=== PATIENT | male | born 1985 | race Caucasian/White ===

== ENCOUNTER → 2017-05-26 09:46 | Outpatient (CLI) | payer MEDICARE, MEDICAID, SELFPAY ==
[2017-05-26 12:21] LABS: Absolute Lymphocyte Count 2.09 X10^3/ul (0.83-4.51); Absolute Neutrophil Count 3.6 X10^3/uL (2.0-7.7); Basophil# 0.02 X10^3/uL; Basophil% 0.3 % (0-1); Eosinophils% 3.1 % (0-5); Hematocrit 43.6 % (40-54); Hemoglobin 14.9 g/dl (13.0-16.5); Lymphocyte # 2.09 X10^3/ul (4.0); Lymphocyte % 32.1 % (19-41); Mean Corp Hgb Conc 34.2 g/gl (32-36); Mean Corpuscular Hgb 29.5 pg (27.0-32.0); Mean Corpuscular Volume 86.3 fL (80-94); Monocyte% 9.2 % (0-10); Neutrophil # 3.58 X10^3/uL (2.7-7.7); Neutrophil % 54.8 % (47-70); Platelet Count 208 K/mm3 (150-450); RBC Distribution Width CV 13.2 % (11.6-14.6); RBC Distribution Width SD 40.6 fl (35.1-43.9); Red Blood Count 5.05 M/mm3 (4.6-6.2); White Blood Count 6.5 K/mm3 (4.4-11.0)
[2017-05-26 12:31] LABS: POSITIVE COUNT NO; POSITIVE DIFFERENTIAL NO; POSITIVE MORPHOLOGY NO
[2017-05-26 12:33] LABS: Hemoglobin A1c 6.4 % (4.2-6.3)
[2017-05-26 12:50] LABS: ALB/GLOB Ratio 0.8 RATIO (0.9-2.4); AST(SGOT) 34 U/L (15-37); Alanine Aminotransfer ALT/SGPT 65 U/L (16-61); Albumin, Serum 3.7 g/dL (3.2-5.0); Alkaline Phosphatase 73 U/L (45-117); Anion Gap 7 (5-15); BUN 15 mg/dL (7-18); BUN/Creat Ratio 14.9 RATIO (10-20); Calcium,Total 8.7 mg/dL (8.5-10.1); Chloride 103 mmol/L (98-107); Cholesterol 215 mg/dL (200); Creatinine, Serum 1.01 mg/dL (0.70-1.30); EST Glomerular Filtration Rate 91 mL/min (>60); Est Glom Filt Rate - Afr Amer 110 mL/min (>60); Globulin 4.5 g/dL (2.2-4.2); Glucose 124 mg/dL (74-106); High Density Lipoprotein 36 mg/dL; Potassium 4.2 mmol/L (3.5-5.1); Protein, Total 8.2 g/dL (6.4-8.2); Sodium Level 138 mmol/L (136-145); Triglycerides 284 mg/dL; Very Low Density Lipoprotein 57 mg/dL (5-40)
== END ==
PROVIDERS: Family Provider Family Medicine; PCP Family Medicine; Visit Provider Family Medicine
DX: E11.9 Type 2 diabetes mellitus without complications (principal)
CPT/HCPCS: 36415; 80053; 80061; 83036; 84443; 85025

== ENCOUNTER 2017-06-17 20:04 | Emergency (ER) | payer MEDICARE, MEDICAID, SELFPAY ==
[2017-06-17 20:05] VITALS: BP 147/123; PULSE 108; RESP 20; TEMP 36.7; O2SAT 93; BMI 44.1
--- NOTE | 2017-06-17 20:45 | RAD_ITS ---
STUDY: X-RAY CHEST REASON FOR EXAM: Male, 31 years old. Hyperglycemia TECHNIQUE: Frontal and lateral views of the chest were obtained. COMPARISON: January 30, 2017 FINDINGS: The lungs are underaerated. There are minimal increased markings in both lung bases. Incidentally noted is a benign azygos fissure in the right lung apex. There are no focal airspace opacities. There is no demonstrated pleural abnormality. There is borderline enlargement of the cardiac silhouette. The mediastinum and hilar regions are unremarkable. The central vessels are indistinct. Normal visualized aortic arch and descending thoracic aorta. The thoracic spine is unremarkable. The visualized ribs, clavicles, and shoulders are unremarkable. There is no demonstrated abnormality of the visualized upper abdomen. RAD/Chest PA and Lateral IMPRESSION: No acute cardiopulmonary abnormalities or changes. There is borderline enlargement of the cardiac silhouette, vascular congestion, and bibasilar atelectasis which are all likely exaggerated by low volume inspiration. Electronically Signed: Nikole Victor MD at 21:16 EST Tel Direct: [phone], Service support ,
[2017-06-17 21:01] LABS: Bedside Glucose 250 mg/dL (70-110)
--- NOTE | 2017-06-17 22:20 | ED.VISSUMM ---
- ER Visit Summary Date of Service: 06/17/17 Chief Complaint: Elevated blood sugar History of Present Illness: The patient is a 31 M who went to urgent care today and was told he most likely had influenza was started on Tamiflu given prednisone. He is a type II diabetic and states that his blood sugar tonight was 347 and then 265. He became concerned and come to the emergency department. When asked what his symptoms were that led to the diagnosis of influenza he states that he was coughing having nausea vomiting diarrhea and a headache. He denies any fever. Physical Examination: Afebrile vital signs are stable Gen: Well-nourished well-developed obese Head: Normocephalic atraumatic Eyes: Perrl EOMI ENT: TMs clear no rhinorrhea moist mucous membranes Neck: Supple no lymphadenopathy no JVD nontender CVS: Regular rate rhythm no murmurs normal S1-S2 Respiratory: No distress clear to auscultation bilaterally chest nontender Abdomen: Soft nontender nondistended normal bowel sounds no masses Back: Nontender Extremity: Nontender no edema Skin: Normal color no rash Neuro: alert orientated ?3 CN II-XII intact normal strength sensation reflexes gait cerebellar Psych: Normal affect normal mood Test Results: X-ray was negative. Influenza swab was negative Emergency Department Course and Treatment: My recommendation to the patient is to stop the prednisone and the Tamiflu. This should solve his hyperglycemia. He is to follow-up with his primary care doctor and do supportive care for his viral illness Impression: 1. Diabetic hyperglycemia 2. Gastroenteritis This note was generated with [employer] dictation software. It may contain incorrect words, spelling, and punctuation that were not noted in review of the chart prior to signing ED Disposition - Plan for ED Patient: Disposition: Home or Assisted Living Chief Complaint: Hyperglycemia Instructions: ED Hyperglycemia Diabetic, ED Gastroenteritis Viral Referrals: Misael Farrar MD [Primary Care Provider] - 3-5 Days if not improving Additional Instructions: I would recommend not taking the Tamiflu as it would appear he did not have influenza. As prednisone is increasing your blood sugars and I do not see a benefit of it I would not take the prednisone.
[2017-06-17 22:43] VITALS: BP 139/81; PULSE 76; RESP 15; O2SAT 98
== END 2017-06-17 22:43 | disposition home or self-care (01) ==
PROVIDERS: Emergency Provider Emergency Medicine; Family Provider Family Medicine; PCP Family Medicine
DX: E11.65 Type 2 diabetes mellitus with hyperglycemia (principal); K52.9 Noninfective gastroenteritis and colitis, unspecified; E66.9 Obesity, unspecified; Z72.0 Tobacco use
CPT/HCPCS: 71046; 82962; 87804; 99282

== ENCOUNTER → 2017-06-30 15:15 | Outpatient (CLI) | payer MEDICARE, MEDICAID, SELFPAY ==
--- NOTE | 2017-06-30 15:18 | RAD_ITS ---
STUDY: X-RAY - RIGHT KNEE REASON FOR EXAM: Male, 31 years old. Pain TECHNIQUE: 4 view(s) of the knee. COMPARISON: None. FINDINGS: Normal visualized distal femur. Normal visualized proximal tibia and fibula. Normal proximal tibiofibular articulation. Normal medial femorotibial compartment. Normal lateral femorotibial compartment. Normal patellofemoral articulation. The soft tissue structures are unremarkable. RAD/Knee 4 or More Views IMPRESSION: Normal x-ray examination of the knee. No acute fractures. No osteoarthritis. Electronically Signed: Samy Lawton, at 7:04 EDT Tel , Service support ,
--- NOTE | 2017-06-30 15:18 | RAD_ITS ---
STUDY: X-RAY - LEFT KNEE REASON FOR EXAM: Male, 31 years old. Pain TECHNIQUE: 4 view(s) of the knee. COMPARISON: None. FINDINGS: Normal visualized distal femur. Normal visualized proximal tibia and fibula. Normal proximal tibiofibular articulation. Normal medial femorotibial compartment. Normal lateral femorotibial compartment. Normal patellofemoral articulation. The soft tissue structures are unremarkable. RAD/Knee 4 or More Views IMPRESSION: Normal x-ray examination of the knee. No fractures. No osteoarthritis. Electronically Signed: Samy Lawton, at 3:50 EDT Tel , Service support ,
== END ==
PROVIDERS: Family Provider Family Medicine; PCP Family Medicine; Visit Provider Orthopaedic Surgery
DX: M25.561 Pain in right knee (principal); M25.562 Pain in left knee
CPT/HCPCS: 73564

== ENCOUNTER 2017-07-01 21:16 | Emergency (ER) | payer MEDICARE, MEDICAID, SELFPAY ==
[2017-07-01 21:17] VITALS: BP 158/114; PULSE 94; RESP 18; TEMP 36.7; O2SAT 96; BMI 44.5
[2017-07-01] MEDS: SUMAtriptan 6 MG/0.5 ML Vial SC (22:06)
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
[2017-07-01 22:53] VITALS: BP 131/78; PULSE 90; RESP 16
== END 2017-07-01 22:54 | disposition home or self-care (01) ==
PROVIDERS: Emergency Provider Emergency Medicine; Family Provider Family Medicine; PCP Family Medicine
DX: G43.909 Migraine, unspecified, not intractable, without status migrainosus (principal); E11.9 Type 2 diabetes mellitus without complications; Z79.84 Long term (current) use of oral hypoglycemic drugs; Z79.51 Long term (current) use of inhaled steroids; Z79.899 Other long term (current) drug therapy
CPT/HCPCS: 96372; 99282; J3030

== ENCOUNTER → 2017-07-09 05:57 | Outpatient (CLI) | payer MEDICARE, SELFPAY ==
--- NOTE | 2017-07-09 05:59 | MRI_ITS ---
STUDY: MRI RIGHT KNEE REASON FOR EXAM: Male, 31 years old. Pain. TECHNIQUE: Standardized fat and water weighted pulse sequences were obtained in all 3 orthogonal planes. COMPARISON: June 30, 2017. FINDINGS: There is attrition with loss of substance and tearing of the body of the medial meniscus, series 7 image . Normal hyaline cartilage of the medial femorotibial compartment. Normal medial femoral condyle and tibial plateau. Normal medial collateral ligamentous complex (MCL). Normal distal semimembranosus, gracilis and semitendinosus tendons. Normal lateral meniscus. Normal hyaline cartilage of the lateral femorotibial compartment. Normal lateral femoral condyle and tibial plateau. Normal proximal tibiofibular articulation. Normal lateral collateral (fibular) ligament. Normal popliteus tendon. Normal biceps femoris tendon. Normal anterior cruciate ligament (ACL). Normal posterior cruciate ligament (PCL). Normal congruent patellofemoral articulation. Normal hyaline cartilage of the patellofemoral compartment. Normal medial and lateral patellar retinaculum. Normal quadriceps tendon. Normal patellar tendon. Normal Hoffa's fat pad. There is a small volume joint effusion. The soft tissues are unremarkable. The otherwise visualized osseous structures are unremarkable. MRI/Lower Ext Joint Only (Routine) IMPRESSION: Medial meniscus tear. Joint effusion. Electronically Signed: James Calhoun MD at 8:54 EDT , Service support ,
== END ==
PROVIDERS: Family Provider Family Medicine; PCP Family Medicine; Visit Provider Orthopaedic Surgery
DX: S83.281A Other tear of lateral meniscus, current injury, right knee, initial encounter (principal)
CPT/HCPCS: 73721

== ENCOUNTER 2017-08-22 19:17 | Emergency (ER) | payer MEDICARE, SELFPAY ==
[2017-08-22 19:19] VITALS: BP 137/84; PULSE 91; RESP 18; TEMP 36.6; O2SAT 97; BMI 43.9
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
[2017-08-22] MEDS: 0.9% Normal Saline 1,000 ML 1000 ML IV (20:59)
[2017-08-22 21:11] LABS: Absolute Lymphocyte Count 2.76 X10^3/ul (0.83-4.51); Absolute Neutrophil Count 5.7 X10^3/uL (2.0-7.7); Basophil# 0.02 X10^3/uL; Basophil% 0.2 % (0-1); Eosinophils% 2.1 % (0-5); Hematocrit 41.3 % (40-54); Hemoglobin 14.7 g/dl (13.0-16.5); Lymphocyte # 2.76 X10^3/ul (4.0); Lymphocyte % 28.8 % (19-41); Mean Corp Hgb Conc 35.6 g/gl (32-36); Mean Corpuscular Hgb 30.2 pg (27.0-32.0); Mean Platelet Vol. 10.9 fl (6.2-12.0); Monocyte# 0.87 X10^3/uL; Monocyte% 9.1 % (0-10); Neutrophil # 5.71 X10^3/uL (2.7-7.7); Neutrophil % 59.5 % (47-70); Platelet Count 259 K/mm3 (150-450); RBC Distribution Width CV 12.9 % (11.6-14.6); RBC Distribution Width SD 39.2 fl (35.1-43.9); Red Blood Count 4.86 M/mm3 (4.6-6.2); White Blood Count 9.6 K/mm3 (4.4-11.0)
[2017-08-22 21:15] LABS: POSITIVE COUNT NO; POSITIVE DIFFERENTIAL NO; POSITIVE MORPHOLOGY NO
[2017-08-22 21:19] LABS: Anion Gap 8 (5-15); BUN 14 mg/dL (7-18); Chloride 104 mmol/L (98-107); EST Glomerular Filtration Rate 92 mL/min (>60); Est Glom Filt Rate - Afr Amer 111 mL/min (>60); Estimated Creatinine Clearance 108.49 ml/min; Glucose 132 mg/dL (74-106); Potassium 3.5 mmol/L (3.5-5.1); Sodium Level 140 mmol/L (136-145)
[2017-08-22 21:47] VITALS: BP 118/67; PULSE 91; RESP 16; O2SAT 100
== END 2017-08-22 22:18 | disposition home or self-care (01) ==
PROVIDERS: Emergency Provider Emergency Medicine; Family Provider Family Medicine; PCP Family Medicine
DX: B34.9 Viral infection, unspecified (principal); E11.9 Type 2 diabetes mellitus without complications; F41.9 Anxiety disorder, unspecified; E66.9 Obesity, unspecified; Z79.51 Long term (current) use of inhaled steroids; Z79.84 Long term (current) use of oral hypoglycemic drugs; Z79.899 Other long term (current) drug therapy
CPT/HCPCS: 80048; 85025; 96360; 99284; J7030

== ENCOUNTER → 2017-08-30 17:10 | Outpatient (CLI) | payer MEDICARE, SELFPAY ==
--- NOTE | 2017-08-30 17:16 | RAD_ITS ---
STUDY: X-RAY - CERVICAL SPINE REASON FOR EXAM: Male, 32 years old. Right hand weakness TECHNIQUE: 5 view(s) of the cervical spine were obtained. COMPARISON: 05/16/2014 FINDINGS: Normal anterior atlantoaxial articulation. Normal odontoid process. Normal cervical lordosis. Normal vertebral bodies and endplates. Normal disc space heights. Normal visualized intervertebral neuroforamina. The soft tissue structures are unremarkable. RAD/Cerv Spine 4 or 5 Views IMPRESSION: Normal x-ray examination of the visualized cervical spine. No fracture. Electronically Signed: Ramesh Colunga DO at 18:05 EDT , Service support ,
== END ==
PROVIDERS: Family Provider Family Medicine; PCP Family Medicine; Visit Provider Family Medicine
DX: R29.898 Other symptoms and signs involving the musculoskeletal system (principal)
CPT/HCPCS: 72050

== ENCOUNTER 2017-09-06 10:00 | Outpatient (RCR) | payer MEDICARE, MEDICAID, SELFPAY ==
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
--- NOTE | 2017-10-12 10:40 | HP.OT.NRP ---
HP - Discharge Summary - Patient Information MANISHA MEJIA was seen in my office for initial evaluation on 09/01/17. The following Plan of Care was established for this patient: Initial Frequency: 1-2x /Week Initial Duration: 4 Weeks Plan: cont POC - Anticipated Interventions Anticipated Interventions: Strengthening, Edema Control, Massage, Modalities, Orthoses, Joint Protection/Energy Conservation, Fine Motor Coord/Eliseo, ADL Training, Caregiver Training, Home Program This patient was last seen in our office 09/06/17. Pertinent comments regarding their Occupational therapy will appear below: Pt did not meet all goals secondary to non-returning to OT. Pt seen for one visit 09/06/17 after evaluation. Pt d/c from OT services after non-returning. At this point I will be discontinuing this patient from occupational therapy. I would be happy to see this patient again in the future if found appropriate by the physician. Thank you! Urmila Islas
== END 2017-09-06 19:00 | disposition home or self-care (01) ==
LOC: OT 10:00
PROVIDERS: Family Provider Family Medicine; PCP Family Medicine; Visit Provider Family Medicine
DX: R53.1 Weakness (principal); G54.0 Brachial plexus disorders
CPT/HCPCS: 97110; 97140; 97165; G8987; G8988

== ENCOUNTER 2017-09-07 21:30 | Emergency (ER) | payer MEDICARE, MEDICAID, SELFPAY ==
[2017-09-07 21:32] VITALS: BP 162/79; PULSE 92; RESP 16; TEMP 36.9; O2SAT 98; BMI 43.9
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
--- NOTE | 2017-09-07 21:50 | DCINST.ED_ITS ---
ED Disposition - Plan for ED Patient: Chief Complaint: Upper Extremity Injury Instructions: ED Sprain Wrist Prescriptions: Hydrocodone/Acetaminophen [[place] 5-325 Tablet] 1 - 2 ea PO 4X/DAY PRN PRN 3 Days #12 tab PRN Reason: Pain Referrals: Misael Farrar MD [Primary Care Provider] - 5-7 Days
[2017-09-07] MEDS: HYDROcodone Bitartrate/Apap 5/325 Tablet PO (22:11)
[2017-09-07 22:15] VITALS: BP 158/78; PULSE 98; RESP 16; O2SAT 97
== END 2017-09-07 22:16 | disposition home or self-care (01) ==
LOC: ED 21:52
PROVIDERS: Emergency Provider Emergency Medicine; Family Provider Family Medicine; PCP Family Medicine
DX: M25.531 Pain in right wrist (principal); E11.9 Type 2 diabetes mellitus without complications; I10 Essential (primary) hypertension; F41.9 Anxiety disorder, unspecified; Z72.0 Tobacco use; Z79.51 Long term (current) use of inhaled steroids; Z79.84 Long term (current) use of oral hypoglycemic drugs; Z79.899 Other long term (current) drug therapy
CPT/HCPCS: 99283

== ENCOUNTER → 2017-09-08 13:44 | Outpatient (CLI) | payer MEDICARE, MEDICAID, SELFPAY ==
--- NOTE | 2017-09-08 14:35 | NEURO ---
NCS and/or EMG Patient Report Ordering Doctor: Misael Farrar DATE OF SERVICE: 09/08/17 Clinton Smith is a 32 year old male who presents for electrodiagnostic testing of the right upper limb. He only wants the right arm tested Electrodiagnostic Findings: Normal right median motor and sensory testing. Normal right ulnar motor response. Sensory responses are normal. Normal median and ulnar F-waves. Needle EMG testing shows no evidence of denervation with normal motor unit action potentials. Electrodiagnostic Impression: This is a normal study. There is no evidence of peripheral neuropathy, including carpal tunnel syndrome If there are any further questions, please do not hesitate to contact me
== END ==
PROVIDERS: Family Provider Family Medicine; PCP Family Medicine; Visit Provider Family Medicine
DX: R20.2 Paresthesia of skin (principal)
CPT/HCPCS: 95886; 95909

== ENCOUNTER 2017-12-14 19:25 | Emergency (ER) | payer MEDICARE, MEDICAID, SELFPAY ==
[2017-12-14 19:25] VITALS: BP 130/75; PULSE 109; RESP 16; TEMP 36.6; O2SAT 98; BMI 44.6
--- NOTE | 2017-12-14 19:31 | ED.RN ---
CALLED FOR EKG PER RN REQUEST PULLED OLD EKGS FOR
[2017-12-14 20:07] LABS: Absolute Lymphocyte Count 2.61 X10^3/ul (0.83-4.51); Absolute Neutrophil Count 5.3 X10^3/uL (2.0-7.7); Basophil# 0.01 X10^3/uL; Basophil% 0.1 % (0-1); Eosinophil# 0.27 X10^3/uL; Eosinophils% 3.1 % (0-5); Hematocrit 40.5 % (40-54); Hemoglobin 14.1 g/dl (13.0-16.5); Lymphocyte # 2.61 X10^3/ul (4.0); Lymphocyte % 29.6 % (19-41); Mean Corp Hgb Conc 34.8 g/gl (32-36); Mean Corpuscular Volume 86.2 fL (80-94); Mean Platelet Vol. 11.5 fl (6.2-12.0); Monocyte# 0.64 X10^3/uL; Monocyte% 7.3 % (0-10); Neutrophil # 5.28 X10^3/uL (2.7-7.7); Neutrophil % 59.8 % (47-70); Platelet Count 207 K/mm3 (150-450); RBC Distribution Width SD 41.1 fl (35.1-43.9); White Blood Count 8.8 K/mm3 (4.4-11.0)
[2017-12-14] MEDS: 0.9% Normal Saline 1,000 ML 1000 ML IV (20:07)
[2017-12-14] MEDS: Aspirin 81 MG TAB.CHEW 324 MG PO (20:07)
[2017-12-14] MEDS: Ketorolac 30 MG/ML Syringe IV (20:07)
[2017-12-14 20:11] LABS: POSITIVE COUNT NO; POSITIVE DIFFERENTIAL NO; POSITIVE MORPHOLOGY NO
[2017-12-14 20:15] LABS: D-Dimer Quantitative (DVT/PE) 0.36 FEU/ug/m (0.27-0.49)
[2017-12-14 20:24] LABS: Anion Gap 11 (5-15); BUN 14 mg/dL (7-18); BUN/Creat Ratio 12.1 RATIO (10-20); Calcium,Total 8.9 mg/dL (8.5-10.1); Chloride 107 mmol/L (98-107); Creatinine, Serum 1.16 mg/dL (0.70-1.30); EST Glomerular Filtration Rate 77 mL/min (>60); Est Glom Filt Rate - Afr Amer 93 mL/min (>60); Estimated Creatinine Clearance 96.47 ml/min; Glucose 173 mg/dL (74-106); Potassium 3.7 mmol/L (3.5-5.1); Sodium Level 141 mmol/L (136-145); Thyroid Stim Hormone (TSH) 2.62 uIU/mL (0.358-3.74)
--- NOTE | 2017-12-14 20:33 | ED.VISSUMM ---
- ER Visit Summary Date of Service: 12/14/17 Chief Complaint: Chest pain History of Present Illness: The patient is a [address] Misael Farrar. He reports he has chest pain that began 3 weeks ago. It is intermittent pain last approximate 30 minutes at a time. Describes it as a sharp, aching pain. It is 8 out of 10 at worst and 6 out of 10 currently. States this episode began 1 hour ago. It is worsened by movement of his torso or breathing. Is unchanged with exertion. Is relieved by laying down. There is associated diaphoresis. No associated nausea, vomiting, or shortness of breath. Physical Examination: Vitals: Stable. Afebrile. General: Well-nourished and well-developed. Head: Normocephalic atraumatic. Neck: Supple, no lymphadenopathy. No JVD. Nontender. Cardiovascular: Regular rate and rhythm. No murmurs. Respiratory: No respiratory distress. Clear to auscultation bilaterally. Abdominal: Soft, nontender, nondistended, normal bowel sounds. No guarding, rebound, or peritoneal signs. Back: Nontender. Extremities: Nontender, no edema. Skin: Normal color, no rash. Neurologic: Alert and oriented ?3. Cranial nerves II through XII are intact. Normal strength and sensation. Psych: Normal affect. Test Results: EKG is sinus tach [address] changes. Is unchanged from January 2017. Troponin is negative. D-dimer is negative. Chem-7 is more for glucose 173. CBC is normal. TSH is normal. Chest x-ray is rotated and shows no acute disease. Emergency Department Course and Treatment: Patient was treated Toradol IV and is resting comfortably. Treatment Plan: Patient be discharged instructions follow-up his primary care physician within 3-5 days for another exam. Return to the emergency department for any worsening symptoms. Disposition: To home in improved and stable condition. Impression: 1. Atypical chest pain. 2. GERONIMO score of 1. This note was generated with [employer] dictation software. It may contain incorrect words, spelling, and punctuation that were not noted in review of the chart prior to signing ED Disposition - Plan for ED Patient: Disposition: Home or Assisted Living Chief Complaint: Chest Pain Instructions: ED Chest Pain Atypical Unkn Cause Referrals: Doctor,Your [STAFF PHYSICIAN] - 3-5 Days if not improving
[2017-12-14 20:57] VITALS: BP 123/75; PULSE 95; RESP 18; O2SAT 96
== END 2017-12-14 20:58 | disposition home or self-care (01) ==
PROVIDERS: Emergency Provider Emergency Medicine; Family Provider Family Medicine; PCP Family Medicine
DX: R07.89 Other chest pain (principal); J45.909 Unspecified asthma, uncomplicated; E11.9 Type 2 diabetes mellitus without complications; I10 Essential (primary) hypertension; E78.00 Pure hypercholesterolemia, unspecified; F41.9 Anxiety disorder, unspecified; Z72.0 Tobacco use; Z79.51 Long term (current) use of inhaled steroids; Z79.84 Long term (current) use of oral hypoglycemic drugs; Z79.899 Other long term (current) drug therapy
CPT/HCPCS: 71045; 80048; 84443; 84484; 85025; 85379; 93005; 96361; 96374; 99285; J7030; A4216

== ENCOUNTER 2017-12-24 16:22 | Emergency (ER) | payer MEDICARE, MEDICAID, SELFPAY ==
[2017-12-24 16:23] VITALS: BP 142/76; PULSE 95; RESP 16; TEMP 36.9; O2SAT 98; BMI 46.6
--- NOTE | 2017-12-24 17:15 | ED.DCSUM_ITS ---
- ER Visit Summary Date of Service: 12/24/17 Chief Complaint: Laceration History of Present Illness: The patient is a [address] Kathleen. He reports he cut his right forearm on his truck door. His tetanus is up-to-date. He denies any paresthesias distally. He reports that he has a stinging pains for 10 at worst and 2 out of 10 currently. Physical Examination: Vitals: Stable. Afebrile. General: Well-nourished and well-developed. Head: Normocephalic atraumatic. Neck: Supple, no lymphadenopathy. No JVD. Nontender. Cardiovascular: Regular rate and rhythm. No murmurs. Respiratory: No respiratory distress. Clear to auscultation bilaterally. Abdominal: Soft, nontender, nondistended, normal bowel sounds. No guarding, rebound, or peritoneal signs. Back: Nontender. Extremities: 2 cm laceration that is very superficial to the back of his right forearm. This does not even extend through the dermis., no edema. Skin: Normal color, no rash. Neurologic: Alert and oriented ?3. Cranial nerves II through XII are intact. Normal strength and sensation. Psych: Normal affect. Emergency Department Course and Treatment: Patient's wound was cleansed and a dressing was placed. Treatment Plan: Patient be discharged instructions follow-up his primary care physician as needed. Disposition: To home in improved and stable condition. Impression: 1. Superficial laceration right forearm, 2 cm, not repaired. This note was generated with [employer] dictation software. It may contain incorrect words, spelling, and punctuation that were not noted in review of the chart prior to signing ED Disposition - Plan for ED Patient: Disposition: Home or Assisted Living Chief Complaint: Laceration Instructions: ED Laceration Small Superf No Sutr Referrals: Joseph Kathleen MD [Primary Care Provider] - As Needed
== END 2017-12-24 17:23 | disposition home or self-care (01) ==
LOC: ED 17:07
PROVIDERS: Emergency Provider Emergency Medicine; Family Provider Internal Medicine; PCP Internal Medicine
DX: S51.811A Laceration without foreign body of right forearm, initial encounter (principal); Z72.0 Tobacco use; W26.9XXA Contact with unspecified sharp object(s), initial encounter; Y93.89 Activity, other specified; Y92.89 Other specified places as the place of occurrence of the external cause; Y99.8 Other external cause status
CPT/HCPCS: 99282

== ENCOUNTER 2018-01-09 08:08 | Emergency (ER) | payer MEDICARE, MEDICAID, SELFPAY ==
[2018-01-09 08:09] VITALS: BP 150/81; PULSE 90; RESP 18; TEMP 36.6; O2SAT 98; BMI 45.3
--- NOTE | 2018-01-09 08:19 | RAD_ITS ---
STUDY: X-RAY CHEST REASON FOR EXAM: Male, 32 years old. Cough. Congestion. TECHNIQUE: PA and lateral views of the chest. COMPARISON: 12/14/2017 FINDINGS: Poor inspiratory effort. Low lung volumes. There is an elevated diaphragm right side more than the left with diminished lung volumes. There is no consolidation, pulmonary vascular congestion or pleural effusion of the visualized lungs. Normal size heart. Normal mediastinum and glenn. Normal visualized pulmonary arteries. Normal visualized aortic arch and descending thoracic aorta. There is mildly increased kyphosis of the thoracic spine. Normal visualized ribs, clavicles, and shoulders. There is no demonstrated abnormality of the visualized soft tissue structures of the upper abdomen. RAD/Chest PA and Lateral IMPRESSION: Low lung volumes. No acute cardiopulmonary abnormality noted. Electronically Signed: Sage Shah MD at 8:48 EDT Tel , Service support ,
--- NOTE | 2018-01-09 08:22 | ED.DCSUM_ITS ---
- ER Visit Summary Date of Service: 01/09/18 Chief Complaint: Cough History of Present Illness: The patient is a 32 M with a 2-3 week history of cough and congestion. Patient states symptoms started out like allergies. He has been coughing up yellow sputum and today had some posttussive emesis. He has no measured fever. He states he started using his albuterol inhaler last night due to occasional wheezing. Physical Examination: Blood pressure is 150/81, temperature 98, heart rate 90, respiratory rate 18, pulse ox 98% on room air. Patient sitting upright in bed no acute distress. Head neck examination is unremarkable. TMs are clear bilaterally. Posterior pharynx is normal. Heart is regular rate and rhythm. Lung sounds are clear. Abdomen soft nontender. Test Results: Two-view chest x-ray is obtained and is unremarkable per my read. No focal infiltrate is noted. Emergency Department Course and Treatment: Patient be treated with Tessalon and Mucinex, first doses given here. I believe the symptoms are all viral in nature and do not require antibiotics at this time. Patient was instructed to stop smoking. Treatment Plan: [] Disposition: Discharge Impression: Viral URI with cough This note was generated with [employer] dictation software. It may contain incorrect words, spelling, and punctuation that were not noted in review of the chart prior to signing ED Disposition - Plan for ED Patient: Disposition: Home or Assisted Living Chief Complaint: Cough Instructions: ED Upper Resp Infec No Abx Tx Prescriptions: Benzonatate [Tessalon Perle] 200 mg PO TID PRN PRN #20 capsule PRN Reason: Cough Guaifenesin [Mucinex] 1,200 mg PO BID PRN #14 tab PRN Reason: Congestion Referrals: Joseph Kathleen MD [Primary Care Provider] - 1 Week if not improving
--- NOTE | 2018-01-09 08:37 | ED.DEP ---
ED Disposition - Plan for ED Patient: Disposition: Home or Assisted Living Chief Complaint: Cough Instructions: ED Upper Resp Infec No Abx Tx Prescriptions: Benzonatate [Tessalon Perle] 200 mg PO TID PRN PRN #20 capsule PRN Reason: Cough Guaifenesin [Mucinex] 1,200 mg PO BID PRN #14 tab PRN Reason: Congestion Referrals: Joseph Kathleen MD [Primary Care Provider] - 1 Week if not improving
[2018-01-09] MEDS: Benzonatate 100 MG Capsule 200 MG PO (09:03)
[2018-01-09] MEDS: guaiFENesin 1,200 MG Tablet 1200 MG PO (09:03)
--- NOTE | 2018-01-10 14:34 | CM.ED ---
ED CALLBACK: Follow-up call placed to patient. Patient states I'm feeling worse. He tells me that when he coughs his chest hurts, stomach hurts and body is hot. Patient denies ever checking his temperature today. He tells me that he is also sometimes spitting up blood. Patient states he did fill his prescriptions and has been taking them. I asked if he called his PCP office and patient said he has not. Patient tells me I'm coming back to the ER after I get off work.
== END 2018-01-09 09:09 | disposition home or self-care (01) ==
PROVIDERS: Emergency Provider Emergency Medicine; Family Provider Internal Medicine; PCP Internal Medicine
DX: J06.9 Acute upper respiratory infection, unspecified (principal); R05 Cough; F17.200 Nicotine dependence, unspecified, uncomplicated
CPT/HCPCS: 71046; 99283

== ENCOUNTER 2018-01-10 17:52 | Emergency (ER) | payer MEDICARE, MEDICAID, SELFPAY ==
[2018-01-10 17:54] VITALS: BP 161/95; PULSE 83; RESP 16; TEMP 37.1; O2SAT 97; BMI 45.2
[2018-01-10 18:10] VITALS: O2SAT 97
--- NOTE | 2018-01-10 18:53 | ED.VISSUMM ---
- ER Visit Summary Date of Service: 01/10/18 Chief Complaint: Cough and congestion History of Present Illness: The patient is a 32 M known history of anf-jjsxjse-notwuwqbh diabetes, hypertension and high cholesterol. Patient is a smoker. States has had cough and congestion for 3-4 weeks. Was seen yesterday in the emergency department. Diagnosed with viral URI. Had a negative chest x-ray. Currently is on Mucinex and Tessalon Perles. He denies any fever other than subjectively. He denies any hemoptysis. Physical Examination: Well-appearing young male. Vital signs are stable afebrile. Pulse ox 97% on room air no hypoxia. No distress. HEENT exam right TM normal. Left obscured by wax. Posterior pharynx moist and pink no erythema or exudate. Neck nontender no lymphadenopathy. Lungs dry cough but no rales, rhonchi or wheezing. Heart regular rhythm rate about 80 no murmur. Abdomen obese but soft nontender normal bowel sounds no peritoneal signs. Moving all 4 extremities. Calves nontender no edema. Neurologically is awake and alert with no focal motor deficits. Test Results: None Emergency Department Course and Treatment: Patient with a viral URI. Continue his Mucinex. Continue his Tessalon Perles. Encouraged to stop smoking. Treatment Plan: Continue current meds. Off work tomorrow. Disposition: Discharge Impression: Viral URI History of diabetes This note was generated with [employer] dictation software. It may contain incorrect words, spelling, and punctuation that were not noted in review of the chart prior to signing ED Disposition - Plan for ED Patient: Chief Complaint: Cold Sx Referrals: Joseph Kathleen MD [Primary Care Provider] -
--- NOTE | 2018-01-10 18:55 | ED.DEP ---
ED Disposition - Plan for ED Patient: Disposition: Home or Assisted Living Chief Complaint: Cold Sx Instructions: ED URI Viral Referrals: Joseph Kathleen MD [Primary Care Provider] - 1 Week if not improving Additional Instructions: Plenty of fluids and rest. Continue your Mucinex and your Tessalon Perles. Stop smoking !!
[2018-01-10 19:01] VITALS: PULSE 88; O2SAT 96
== END 2018-01-10 19:27 | disposition home or self-care (01) ==
PROVIDERS: Emergency Provider Emergency Medicine; Family Provider Internal Medicine; PCP Internal Medicine
DX: J06.9 Acute upper respiratory infection, unspecified (principal); E11.9 Type 2 diabetes mellitus without complications; I10 Essential (primary) hypertension; E78.00 Pure hypercholesterolemia, unspecified; F17.200 Nicotine dependence, unspecified, uncomplicated; Z79.51 Long term (current) use of inhaled steroids; Z79.84 Long term (current) use of oral hypoglycemic drugs; Z79.899 Other long term (current) drug therapy
CPT/HCPCS: 99282

== ENCOUNTER 2018-01-19 18:12 | Emergency (ER) | payer MEDICARE, MEDICAID, SELFPAY ==
[2018-01-19 18:13] VITALS: BP 159/88; PULSE 113; RESP 16; TEMP 36.8; O2SAT 97; BMI 47.3
[2018-01-19 18:54] LABS: Bacteria 0 SEEN /hpf (None Seen); Red Blood Cells-Urine 0 SEEN /hpf (0-5)
[2018-01-19 18:56] LABS: Bedside Glucose 409 mg/dL (70-110)
--- NOTE | 2018-01-19 18:57 | ED.VISSUMM ---
- ER Visit Summary Date of Service: 01/19/18 Chief Complaint: Frequent urination History of Present Illness: The patient is a 32 M who presents for 1 day of frequent urination. Patient states yesterday he urinated approximately 20 times and today 15 times. He was unable to sleep last night because he kept having to get up and urinate. He states his urine is clear. He has no associated dysuria or penile discharge. He is diabetic and is on metformin and a small dose of insulin. He denies any polyphagia, polydipsia, headache, blurry vision, chest pain, shortness of breath, abdominal pain, nausea or vomiting, or any other complaints other than the frequent urination. He was treated last week for respiratory infection. He has no other medication changes other than running out of his gabapentin recently. Physical Examination: Vital signs: afebrile, hemodynamically stable, no hypoxia on room air General: well nourished, well developed, in no distress Skin: warm, dry, no rash, no pallor HEENT: normocephalic and atraumatic; PERRL, EOMI, moist mucous membranes Cardiovascular: regular rate and rhythm without murmurs, no peripheral edema, 2+ pulses all distal extremities Respiratory: No increased work of breathing, lungs are clear to auscultation bilaterally, no rales, rhonchi or wheezing Abdominal: Abdomen is soft, nontender with normoactive bowel sounds, no guarding or rebound, no masses MSK: Moves all extremities, no deformities, normal strength Neuro: Awake and alert, oriented ?4. No facial droop, sensation and motor function intact and symmetric Test Results: Abnormal Lab Results 01/19/18 01/19/18 01/19/18 18:44 18:45 19:17 WBC 8.2 RBC 4.75 Hgb 14.5 Hct 41.1 MCV 86.5 MCH 30.5 MCHC 35.3 RDW 12.7 RDW Differential 40.5 Plt Count 209 MPV 11.4 Immature Gran % (Auto) 0.400 Neut % (Auto) 55.9 Lymph % (Auto) 34.1 [place] % (Auto) 5.3 Eos % (Auto) 3.9 Baso % (Auto) 0.4 Absolute Neuts (auto) 4.6 Absolute Lymphs (auto) 2.79 Total Counted Not Reportable Sodium Potassium Chloride Carbon Dioxide Anion Gap BUN Creatinine Estim Creat Clear Calc Est GFR (MDRD) Af Amer Est GFR (MDRD) Non-Af BUN/Creatinine Ratio Glucose Calcium Phosphorus Magnesium Urine Color Yellow Urine Clarity Sl. Cloudy Urine pH 5.0 Ur Specific [place] 1.025 Urine Protein 15 H Urine Glucose (UA) 1000 H Urine Ketones 5 H Urine Occult Blood Negative Urine Nitrite Negative Urine Bilirubin Negative Urine Urobilinogen Normal Ur Leukocyte Esterase Negative Urine RBC 0 SEEN Urine WBC 0-5 SEEN Ur Squamous Epith Cells 5-10 SEEN Urine Bacteria 0 SEEN Urine Mucus 1+ Acetone Level POC Glucose 409 H 01/19/18 01/19/18 01/19/18 19:17 19:17 22:17 WBC RBC Hgb Hct MCV MCH MCHC RDW RDW Differential Plt Count MPV Immature Gran % (Auto) Neut % (Auto) Lymph % (Auto) [place] % (Auto) Eos % (Auto) Baso % (Auto) Absolute Neuts (auto) Absolute Lymphs (auto) Total Counted Sodium 134 L Potassium 3.7 Chloride 99 Carbon Dioxide 24.0 Anion Gap 11 BUN 14 Creatinine 1.21 Estim Creat Clear Calc 89.66 Est GFR (MDRD) Af Amer 89 Est GFR (MDRD) Non-Af 73 BUN/Creatinine Ratio 11.6 Glucose 383 H Calcium 8.8 Phosphorus 3.6 Magnesium 1.7 Urine Color Urine Clarity Urine pH Ur Specific [place] Urine Protein Urine Glucose (UA) Urine Ketones Urine Occult Blood Urine Nitrite Urine Bilirubin Urine Urobilinogen Ur Leukocyte Esterase Urine RBC Urine WBC Ur Squamous Epith Cells Urine Bacteria Urine Mucus Acetone Level NEGATIVE POC Glucose 320 H Clinical Impression(s) from Imaging Studies Chest X-Ray 01/19/18 19:20 IMPRESSION: No radiographic evidence of acute cardiopulmonary disease. Electronically Signed: Giselle Raza MD at 19:43 EDT , Service support , Medications Given Discontinued Medications Sodium Chloride () 1,000 mls @ 999 mls/hr IV .Q1H1M ONE Stop: 01/19/18 19:56 Last Admin: 01/19/18 19:18 Dose: 999 mls/hr Insulin Human Lispro (Humalog Kwikpen (Bkc)) 15 unit SC X1 ONE Stop: 10/03/18 21:26 Last Admin: 01/19/18 22:18 Dose: 15 units Emergency Department Course and Treatment: Patient presents with 2 days of polyuria in the context of hyperglycemia. Patient's blood sugar was in the 400s when he presented. Workup was performed to evaluate for any possible HHS or DKA. Patient had no ketones, no low bicarb, no anion gap. He did have glucosuria. Patient was given IV fluids. After fluids his blood sugar was in the mid 300s. He was given a dose of subcu insulin, and on reevaluation blood sugar was 320. Patient was instructed to follow-up with his primary care doctor as soon as possible to discuss his diabetic regimen, as his blood sugars poorly controlled and is likely the source of his glucosuria. He is having no other concerning findings or complaints such as blurry vision, headache, polydipsia, polyphagia, or signs of dehydration. Patient was discharged home with blood sugar improved. Treatment Plan: [] Disposition: [] Impression: Hyperglycemia with polyuria This note was generated with [employer] dictation software. It may contain incorrect words, spelling, and punctuation that were not noted in review of the chart prior to signing ED Disposition - Plan for ED Patient: Disposition: Home or Assisted Living Chief Complaint: Complaint Instructions: ED Hyperglycemia Diabetic Referrals: Joseph Kathleen MD [Primary Care Provider] - 3-5 Days Additional Instructions: Your urine showed no sign of infection. Your blood sugar is very high. You were given insulin in the emergency department. These continue your medications for diabetes as instructed by your doctor at home. Follow-up with your doctor in the next few days for reevaluation and to discuss whether you need a higher insulin schedule. If you have any worsening of your condition or any new concerning symptoms, please return immediately to the emergency department for another evaluation.
[2018-01-19 19:00] LABS: Color, Urine Yellow (Yellow); Glucose, Dipstick 1000 mg/dl (Normal); Ketone-Dipstick 5 mg/dl (Negative); Leukocyte Esterase-Dipstick Negative /ul (Negative); Nitrite-Dipstick Negative (Negative); Occult Blood-Urine Negative /ul (Negative); Protein-Dipstick 15 mg/dl (Negative); Specific Gravity, Urine 1.025 (1.002-1.030); Urine Bilirubin Dipstick Negative (Negative); Urine Clarity Sl. Cloudy (Clear); Urine Urobilinogen Normal (Normal)
[2018-01-19] MEDS: 0.9% Normal Saline 1,000 ML 999 ML IV (19:18)
--- NOTE | 2018-01-19 19:20 | RAD_ITS ---
STUDY: X-RAY CHEST REASON FOR EXAM: Male, 32 years old. Urinary frequency. TECHNIQUE: PA and lateral views of the chest. COMPARISON: Chest radiograph dated January 09, 2018. FINDINGS: The lungs are clear and expanded. There is no demonstrated pleural abnormality. Normal size heart. Normal mediastinum and glenn. Normal visualized pulmonary arteries. Normal visualized aortic arch and descending thoracic aorta. Normal visualized thoracic spine. Normal visualized ribs, clavicles, and shoulders. There is no demonstrated abnormality of the visualized soft tissue structures of the upper abdomen. RAD/Chest PA and Lateral IMPRESSION: No radiographic evidence of acute cardiopulmonary disease. Electronically Signed: Giselle Raza MD at 19:43 EDT , Service support ,
[2018-01-19 19:30] LABS: Mucous, Urine 1+ /hpf (<or=2+); Squamous Epithelial Cells - UA 5-10 SEEN /hpf (0-5); White Blood Cells 0-5 SEEN /hpf (0-5)
[2018-01-19 19:32] LABS: Absolute Lymphocyte Count 2.79 X10^3/ul (0.83-4.51); Absolute Neutrophil Count 4.6 X10^3/uL (2.0-7.7); Basophil# 0.03 X10^3/uL; Basophil% 0.4 % (0-1); Eosinophil# 0.32 X10^3/uL; Eosinophils% 3.9 % (0-5); Hematocrit 41.1 % (40-54); Hemoglobin 14.5 g/dl (13.0-16.5); Lymphocyte # 2.79 X10^3/ul (4.0); Lymphocyte % 34.1 % (19-41); Mean Corp Hgb Conc 35.3 g/gl (32-36); Mean Corpuscular Hgb 30.5 pg (27.0-32.0); Mean Corpuscular Volume 86.5 fL (80-94); Mean Platelet Vol. 11.4 fl (6.2-12.0); Monocyte# 0.43 X10^3/uL; Monocyte% 5.3 % (0-10); Neutrophil # 4.58 X10^3/uL (2.7-7.7); Neutrophil % 55.9 % (47-70); Platelet Count 209 K/mm3 (150-450); RBC Distribution Width CV 12.7 % (11.6-14.6); RBC Distribution Width SD 40.5 fl (35.1-43.9); Red Blood Count 4.75 M/mm3 (4.6-6.2); White Blood Count 8.2 K/mm3 (4.4-11.0)
[2018-01-19 19:33] LABS: POSITIVE COUNT NO; POSITIVE DIFFERENTIAL NO; POSITIVE MORPHOLOGY NO
[2018-01-19 19:46] LABS: Anion Gap 11 (5-15); BUN 14 mg/dL (7-18); BUN/Creat Ratio 11.6 RATIO (10-20); Calcium,Total 8.8 mg/dL (8.5-10.1); Chloride 99 mmol/L (98-107); Creatinine, Serum 1.21 mg/dL (0.70-1.30); EST Glomerular Filtration Rate 73 mL/min (>60); Est Glom Filt Rate - Afr Amer 89 mL/min (>60); Estimated Creatinine Clearance 89.66 ml/min; Glucose 383 mg/dL (74-106); Magnesium 1.7 mg/dL (1.6-2.6); Phosphorus 3.6 mg/dL (2.5-4.9); Potassium 3.7 mmol/L (3.5-5.1); Sodium Level 134 mmol/L (136-145)
--- NOTE | 2018-01-19 21:25 | ED.DEP ---
ED Disposition - Plan for ED Patient: Disposition: Home or Assisted Living Chief Complaint: Complaint Instructions: ED Hyperglycemia Diabetic Referrals: Joseph Kathleen MD [Primary Care Provider] - 3-5 Days Additional Instructions: Your urine showed no sign of infection. Your blood sugar is very high. You were given insulin in the emergency department. These continue your medications for diabetes as instructed by your doctor at home. Follow-up with your doctor in the next few days for reevaluation and to discuss whether you need a higher insulin schedule. If you have any worsening of your condition or any new concerning symptoms, please return immediately to the emergency department for another evaluation.
[2018-01-19] MEDS: Insulin Lispro 100 UNIT/ML INSULN.PEN 15 UNIT SC (22:18)
[2018-01-19 22:22] VITALS: BP 134/85; PULSE 97; RESP 18; O2SAT 97
[2018-01-19 22:35] LABS: Bedside Glucose 320 mg/dL (70-110)
== END 2018-01-19 22:46 | disposition home or self-care (01) ==
PROVIDERS: Emergency Provider Emergency Medicine; Family Provider Internal Medicine; PCP Internal Medicine
DX: E11.65 Type 2 diabetes mellitus with hyperglycemia (principal); R35.0 Frequency of micturition; E66.9 Obesity, unspecified; F41.9 Anxiety disorder, unspecified; Z79.84 Long term (current) use of oral hypoglycemic drugs; Z79.4 Long term (current) use of insulin; Z79.899 Other long term (current) drug therapy
CPT/HCPCS: 71046; 80048; 81001; 82009; 82962; 83735; 84100; 85025; 96360; 96361; 96372; 99283; J7030

== ENCOUNTER 2018-03-13 15:44 | Emergency (ER) | payer MEDICAID, MEDICARE, SELFPAY ==
[2018-03-13 15:45] VITALS: BP 133/80; PULSE 108; RESP 18; TEMP 36.8; O2SAT 94; BMI 45.3
--- NOTE | 2018-03-13 16:02 | ED.DCSUM_ITS ---
- ER Visit Summary Date of Service: 03/13/18 Chief Complaint: Back pain History of Present Illness: The patient is a 32 M who was trying to move a desk today and felt a pop in his lower back. He has pain to the midline lower lumbar region as well as just to the right. He states his right leg feels weaker than normal. He denies paresthesias. He does reportedly have 2 bulging disks in his lower back. Physical Examination: Vital signs unremarkable. Patient sitting upright in bed. He is in no acute distress. Heart is regular rate and rhythm. Lung sounds are clear. Abdomen is soft, obese, nontender. Back examination reveals tenderness in the low lumbar midline and to the right paraspinals. No overlying skin change. Straight leg raise in the seated position is negative. He has 1+ bilateral patellar reflexes and strong distal pulses. Test Results: Emergency Department Course and Treatment: Patient was given Naprosyn, Flexeril, and 1 tab of oxycodone. On repeat evaluation he is starting to feel some imp rovement. Patient did move to his side quite easily and I do not feel that imaging is needed at this time. He has no sign of cauda equina. Be given prescriptions for Naprosyn and Flexeril. I will avoid steroids as he is a diabetic and has had increased sugar readings recently. Treatment Plan: [] Disposition: Discharge Impression: Lumbar strain This note was generated with [employer] dictation software. It may contain incorrect words, spelling, and punctuation that were not noted in review of the chart prior to signing ED Disposition - Plan for ED Patient: Chief Complaint: Back Referrals: Joseph Kathleen MD [Primary Care Provider] -
[2018-03-13] MEDS: Naproxen 500 MG Tablet PO (16:13)
[2018-03-13] MEDS: oxyCODONE 5 MG Tablet PO (16:13)
--- NOTE | 2018-03-13 17:06 | ED.DEP ---
ED Disposition - Plan for ED Patient: Disposition: Home or Assisted Living Chief Complaint: Back Instructions: ED Sprain Strain Lumbar Prescriptions: Naproxen [Naprosyn] 500 mg PO BID PRN PRN #20 tablet PRN Reason: Pain Cyclobenzaprine [Flexeril] 10 mg PO TID PRN #20 tablet PRN Reason: Muscle Spasm Referrals: Joseph Kathleen MD [Primary Care Provider] - 1 Week
[2018-03-13 17:23] VITALS: BP 126/72; PULSE 83; RESP 18; O2SAT 98
== END 2018-03-13 17:24 | disposition home or self-care (01) ==
PROVIDERS: Emergency Provider Emergency Medicine; Family Provider Internal Medicine; PCP Internal Medicine
DX: S39.012A Strain of muscle, fascia and tendon of lower back, initial encounter (principal); J45.909 Unspecified asthma, uncomplicated; E11.9 Type 2 diabetes mellitus without complications; I10 Essential (primary) hypertension; E78.00 Pure hypercholesterolemia, unspecified; F32.9 Major depressive disorder, single episode, unspecified; Z72.0 Tobacco use; Z79.51 Long term (current) use of inhaled steroids; Z79.84 Long term (current) use of oral hypoglycemic drugs; Z79.899 Other long term (current) drug therapy; X50.0XXA Overexertion from strenuous movement or load, initial encounter; Y93.89 Activity, other specified; Y92.89 Other specified places as the place of occurrence of the external cause; Y99.8 Other external cause status
CPT/HCPCS: 99285

== ENCOUNTER 2018-05-02 18:04 | Emergency (ER) | payer MEDICARE, MEDICAID, SELFPAY ==
[2018-05-02 18:06] VITALS: BP 142/67; PULSE 87; RESP 17; TEMP 37.1; O2SAT 97; BMI 42.7
[2018-05-02 18:49] VITALS: BP 145/76; PULSE 82; RESP 17; TEMP 37.1; O2SAT 97
[2018-05-02 19:11] VITALS: PULSE 80; RESP 14; TEMP 36.7; O2SAT 98
--- NOTE | 2018-05-02 19:35 | RAD_ITS ---
STUDY: X-RAY CHEST REASON FOR EXAM: Male, 32 years old. Sore throat and diarrhea TECHNIQUE: PA and lateral views of the chest. COMPARISON: Prior study of 01/19/2018 FINDINGS: The lungs are clear and expanded. There is no demonstrated pleural abnormality. Normal size heart. Normal mediastinum and glenn. Normal visualized pulmonary arteries. Normal visualized aortic arch and descending thoracic aorta. Normal visualized thoracic spine. Normal visualized ribs, clavicles, and shoulders. There is no demonstrated abnormality of the visualized soft tissue structures of the upper abdomen. RAD/Chest PA and Lateral IMPRESSION: Normal x-ray examination of the chest. Electronically Signed: Karl Morel MD at 19:49 EST , Service support ,
[2018-05-02 20:17] VITALS: BP 135/78; PULSE 75; PULSE 80; RESP 16; TEMP 36.4; O2SAT 97; O2SAT 98
--- NOTE | 2018-05-02 21:24 | ED.DCSUM_ITS ---
- ER Visit Summary Date of Service: 05/02/18 Chief Complaint: Diarrhea, cough, and sore throat History of Present Illness: The patient is a 32 M who presents with diarrhea, sore throat, and cough that began yesterday. Patient states he is coughing up dark yellow sputum. Patient denies any fevers or chills. Patient states his diarrhea is loose. Patient denies any fevers or chills. Patient denies any nausea or vomiting. Patient states his sore throat is worse when he swallows. She states nothing is helped his diarrhea or cough. Physical Examination: Vital signs are stable. Patient is afebrile. Patient is in no acute distress. Oral mucosa is pink and moist. Oropharynx is mildly erythematous. Neck is supple. Trachea is midline. There is no JVD noted. Heart was regular rate and rhythm. Lungs are clear and equal bilateral. Abdomen is soft nontender. Cranial nerves II through XII are intact. There are no focal motor or sensory deficits noted. Test Results: PA and lateral chest x-ray does not show any acute infiltrate. Rapid strep was negative. Influenza was negative. Emergency Department Course and Treatment: Patient was instructed that this was a viral upper respiratory infection. Patient was instructed to drink plenty of fluids. Patient was instructed to take Tylenol as needed for any aches or fevers. Patient was instructed to follow-up with his primary care physician in 5-7 days. Patient understood and was agreeable with the plan. All questions were answered. Disposition: Discharge home Impression: Viral upper respiratory infection This note was generated with [employer] dictation software. It may contain incorrect words, spelling, and punctuation that were not noted in review of the chart prior to signing ED Disposition - Plan for ED Patient: Disposition: Home or Assisted Living Chief Complaint: General Illness Diagnosis: Viral upper respiratory tract infection with cough Instructions: ED URI Viral Referrals: Joseph Kathleen MD [Primary Care Provider] -
[2018-05-02 21:38] VITALS: BP 148/80; PULSE 85; RESP 14; RESP 16; TEMP 36.2; O2SAT 97; O2SAT 98
== END 2018-05-02 21:40 | disposition home or self-care (01) ==
PROVIDERS: Emergency Provider Emergency Medicine; Family Provider Internal Medicine; PCP Internal Medicine
DX: J06.9 Acute upper respiratory infection, unspecified (principal); E66.9 Obesity, unspecified; J45.909 Unspecified asthma, uncomplicated; E11.9 Type 2 diabetes mellitus without complications; Z72.0 Tobacco use; Z79.51 Long term (current) use of inhaled steroids; Z79.84 Long term (current) use of oral hypoglycemic drugs; Z79.899 Other long term (current) drug therapy
CPT/HCPCS: 71046; 87804; 87880; 99282

== ENCOUNTER 2018-05-27 21:41 | Emergency (ER) | payer MEDICARE, MEDICAID, SELFPAY ==
[2018-05-27 21:42] VITALS: BP 137/80; PULSE 80; RESP 16; TEMP 36.6; O2SAT 96; BMI 41.5
--- NOTE | 2018-05-27 21:56 | ED.VISSUMM ---
- ER Visit Summary Date of Service: 05/27/18 Chief Complaint: Possible abscess left chest wall History of Present Illness: The patient is a 32 M past medical history of noncemented diabetes and asthma. Patient states he has a Keflex allergy. States today they noticed small raised area of the skin of his left chest wall. Clear drainage. No fever. No pus. No trauma. No prior history. Physical Examination: Well-appearing young male. Vital signs are stable. He is afebrile. He does not look septic or toxic. He is in no distress. HEENT exam unremarkable. Neck nontender no lymphadenopathy. Lungs clear to auscultation bilaterally. Heart regular rate and rhythm no murmur. Chest wall left lateral there is an area about the size of a quarter that looks like a possible early ingrown hair abscess. There is nothing to drain. There is no fluctuance. There is no cellulitis. No lymphangitic streaking. There is yellowish drainage. No redness or warmth. Abdomen is obese but soft. Nontender. Moving all 4 extremities. Neurologically is awake and alert. Back unremarkable. Test Results: None Emergency Department Course and Treatment: Patient has an early ingrown hair abscess of the lateral chest wall. There is nothing to drain at this time. There is no fluctuance. He states Keflex makes him pass out. He will be started on Bactrim twice daily for 10 days. Warm compresses to the area. Return if worse. Treatment Plan: Bactrim twice daily. Warm compresses. Disposition: Discharge Impression: Left lateral chest wall early abscess This note was generated with [employer] dictation software. It may contain incorrect words, spelling, and punctuation that were not noted in review of the chart prior to signing ED Disposition - Plan for ED Patient: Referrals: Joseph Kathleen MD [Primary Care Provider] -
--- NOTE | 2018-05-27 21:58 | ED.DEP ---
ED Disposition - Plan for ED Patient: Disposition: Home or Assisted Living Instructions: ED Staph Infec Abx Tx Only Prescriptions: Smz/Tmp Ds [Bactrim Ds] 1 tab PO BID #20 tab Referrals: Joseph Kathleen MD [Primary Care Provider] - 1 Week if not improving Additional Instructions: Warm compresses and hot shower to the area. Bactrim 1 pill twice a day for 10 days. Return or follow-up if not improving or getting larger. If it gets a lot larger it may need to be drained but nothing to be done at this time.
[2018-05-27] MEDS: Smz/Tmp Ds Tablet 1 TABLET PO (22:05)
[2018-05-27 22:13] VITALS: BP 137/80; PULSE 80; RESP 16; O2SAT 96
== END 2018-05-27 22:14 | disposition home or self-care (01) ==
PROVIDERS: Emergency Provider Emergency Medicine; Family Provider Internal Medicine; PCP Internal Medicine
DX: L02.213 Cutaneous abscess of chest wall (principal); E11.9 Type 2 diabetes mellitus without complications; J45.909 Unspecified asthma, uncomplicated; Z79.84 Long term (current) use of oral hypoglycemic drugs; Z79.51 Long term (current) use of inhaled steroids; Z79.899 Other long term (current) drug therapy
CPT/HCPCS: 99283

== ENCOUNTER 2018-09-28 02:21 | Emergency (ER) | payer MEDICARE, MEDICAID, SELFPAY ==
[2018-09-28 02:22] VITALS: BP 141/81; PULSE 102; RESP 24; TEMP 36.8; O2SAT 97; BMI 45.0
--- NOTE | 2018-09-28 02:40 | ED.VISSUMM ---
- ER Visit Summary Date of Service: 09/28/18 Chief Complaint: Bilateral hand injury History of Present Illness: The patient is a 33 M who was scratched by his cat to both hands, left greater than right. Physical Examination: Vital signs unremarkable. Left upper extremity examination reveals a 14 cm and a 6 cm superficial abrasion of the volar left forearm. There are 2 3 cm abrasions noted to the back of the left hand. Right hand has multiple small superficial linear abrasions. Patient has very minimal bleeding from any of the wounds. Neuro exam is intact. Test Results: [] Emergency Department Course and Treatment: Wounds are cleansed and dressed. At this time I do not believe he needs antibiotics. Treatment Plan: [] Disposition: Discharge Impression: Cat scratches bilateral hands This note was generated with [employer] dictation software. It may contain incorrect words, spelling, and punctuation that were not noted in review of the chart prior to signing ED Disposition - Plan for ED Patient: Disposition: Home or Assisted Living Instructions: ED Bite Cat Referrals: Joseph Kathleen MD [Primary Care Provider] - 1 Week
[2018-09-28 02:56] VITALS: BP 141/81; PULSE 102; RESP 16; O2SAT 97
== END 2018-09-28 02:57 | disposition home or self-care (01) ==
PROVIDERS: Emergency Provider Emergency Medicine; Family Provider Internal Medicine; PCP Internal Medicine
DX: S60.512A Abrasion of left hand, initial encounter (principal); S60.511A Abrasion of right hand, initial encounter; J45.909 Unspecified asthma, uncomplicated; K21.9 Gastro-esophageal reflux disease without esophagitis; E11.9 Type 2 diabetes mellitus without complications; L03.113 Cellulitis of right upper limb; F17.200 Nicotine dependence, unspecified, uncomplicated; W55.03XA Scratched by cat, initial encounter; Y93.89 Activity, other specified; Y92.009 Unspecified place in unspecified non-institutional (private) residence as the place of occurrence of the external cause; Y99.8 Other external cause status
CPT/HCPCS: 99282; 99283

== ENCOUNTER 2018-09-28 22:57 | Emergency (ER) | payer MEDICARE, SELFPAY ==
[2018-09-28 02:22] VITALS: BMI 45.0
[2018-09-28 22:59] VITALS: BP 132/76; PULSE 85; RESP 17; TEMP 37.1; O2SAT 97; BMI 44.1
--- NOTE | 2018-09-28 23:32 | ED.DCSUM_ITS ---
History of Present Illness Chief Complaint: Bite Informant: Patient Onset: Today Narrative: He was seen earlier today for cat scratches to his bilateral hands and left forearm. He noticed the back of his right hand over the last several hours has gotten increased redness and tenderness. There is no drainage. He was not bitten these areas but he was scratched. He is not on antibiotics. He used ibuprofen earlier today. Comes back just for evaluation of the redness. Current severity is mild. No previous infections before. Past Medical History - Allergies and Home Meds Allergies/Adverse Reactions: Allergies tramadol Allergy (Verified 09/28/18 22:58) Chest tightness cephalexin monohydrate [From Keflex] Adverse Reaction (Verified 09/28/18 22:58) Vomiting ALSO CAUSED CHEST PAIN formoterol fumarate [From Dulera] Adverse Reaction (Verified 09/28/18 22:58) Vomiting mometasone furoate [From Dulera] Adverse Reaction (Verified 09/28/18 22:58) Vomiting Primary Care Physician: Joseph Kathleen MD [Primary Care Provider] - Prior records reviewed: Yes Past Medical History: - - Reviewed Surgical History: - - Reviewed Smoking Status: Current every day smoker Alcohol: None Drugs: None Review of Systems General: Denies: Chills, Fever, Sweats Eyes: Denies: Visual changes - bilaterally, Diplopia ENT: Denies: Rhinorrhea, Sore throat Cardiovascular: Denies: Chest pain, Palpitations Respiratory: Denies: Dyspnea, Cough, Dyspnea on exertion Gastrointestinal: Denies: Abdominal pain, Nausea, Vomiting, Diarrhea, Melena, Hematochezia Genitourinary: Denies: Dysuria, Hematuria, Frequency Musculoskeletal: Denies: Back pain, Extremity Pain Skin: Reports: Abrasions, - - See HPI. Denies: Wounds Neurological: Denies: Headache, Weakness, Numbness Physical Exam Vital Signs/Narrative: Vital Signs Temp Pulse Resp BP Pulse Ox 09/28/18 22:59 98.7 F 85 17 132/76 H 97 General: Well nourished, Well developed, No Acute Distress Head: Normocephalic, Atraumatic Eyes: Perrl, EOMI ENT: Moist mucous membranes, No rhinorrhea Neck: Supple, Nontender Cardiovascular: Regular rate, Regular rhythm, No murmurs Respiratory: No distress, CTA bilaterally, Chest nontender Abdomen: Soft, Nontender, Nondistended, Normal bowel sounds Back: Nontender, Normal Inspection Extremities: Nontender, No edema Skin: - - Back of the patient's right hand has some scratches. He has a ping- pong sized area of redness and edema. I suspect this is inflammation versus early cellulitis. There is no abscess.. Negative for: Normal color, No rash Neurological: Alert, Oriented x3, Cranial nerves II-XII grossly intact, Normal Strength, Normal Sensation Psychological: Normal affect, Normal Mood Diagnostic/Tx/Re-eval - Medical Decision Making Think the patient has a mild early cellulitis to his right hand. Given Augmentin. I do not feel he needs MRSA coverage at this time. He will watch this closely and return if it worsens. Given Tylenol. Will use ice. This is 1.5 x 1.5 cm. I do not feel he needs IV antibiotics for such a small area. ED Disposition - Plan for ED Patient: Diagnosis: Cellulitis of right hand Instructions: Discharge Instructions for Cellulitis Prescriptions: Amox/Clavulanate Tablet [Augmentin Tablet] 875 mg PO Q12H #20 tab Referrals: Joseph Kathleen MD [Primary Care Provider] -
[2018-09-29] MEDS: Acetaminophen 325 MG Tablet 650 MG PO (00:32)
[2018-09-29] MEDS: Amox/Clavulanate 875 MG Tablet PO (00:32)
== END 2018-09-29 00:33 | disposition home or self-care (01) ==
LOC: ED 23:57
PROVIDERS: Emergency Provider Emergency Medicine; Family Provider Internal Medicine; PCP Internal Medicine
DX: L03.113 Cellulitis of right upper limb (principal); F17.200 Nicotine dependence, unspecified, uncomplicated

== ENCOUNTER 2018-11-05 21:35 | Emergency (ER) | payer MEDICARE, SELFPAY ==
[2018-11-05 21:36] VITALS: BP 157/98; PULSE 84; RESP 16; TEMP 36.6; O2SAT 99; BMI 42.7
--- NOTE | 2018-11-05 22:07 | ED.VISSUMM ---
- ER Visit Summary Date of Service: 11/05/18 Chief Complaint: Rash History of Present Illness: The patient is a 33 M who states that 3 days ago he began to have a itchy rash on his anterior bilateral forearms. He also notes it across his anterior chest but in a small amount. He denies any changes in soaps or lotions. No new job. It is exceedingly hot outside with heat indices greater than 100. He states his blood sugars from with his diabetes have been controlled. Physical Examination: Afebrile vital signs are stable There is a slightly raised blanching nondescript rash over a small area the anterior forearms and over a small area the anterior chest. There are no pustules. Does not appear to be folliculitis or infectious process. Does not appear to be consistent with a Rhus dermatitis. Emergency Department Course and Treatment: Patient will be started hydrocortisone cream. He can also use some Benadryl or Benadryl cream he should follow-up with his doctor if is not improving. Impression: 1. Dermatitis of the chest and forearms This note was generated with [employer] dictation software. It may contain incorrect words, spelling, and punctuation that were not noted in review of the chart prior to signing ED Disposition - Plan for ED Patient: Disposition: Home or Assisted Living Instructions: DERMATITIS, Non-Specific Prescriptions: Hydrocortisone 2.5% Crm [Hytone] 1 applic TOPICAL BID 7 Days #60 g Prescription Printed Referrals: Joseph Kathleen MD [Primary Care Provider] - 1 Week if not improving
[2018-11-05] MEDS: Hydrocortisone 2.5% Crm 1 APPLIC TOPICAL (22:16)
[2018-11-05 22:18] VITALS: RESP 16
--- NOTE | 2018-11-05 22:18 | ED.RN ---
REVIEWED D/C INSTRUCTIONS, FOLLOW UP CARE, PRESCRIPTION, AND S/S THAT WOULD WARRANT A RETURN TO THE ED WITH PT. PT VERBALIZED AN UNDERSTANDING AND DENIES FURTHER QUESTIONS FOR THIS RN. PT SKIN P/W/D, RESP EVEN AND UNLABORED, PT A&O X 3, NO DISTRESS NOTED. PT AMBULATED OUT OF ED, GAIT STEADY.
== END 2018-11-05 22:20 | disposition home or self-care (01) ==
PROVIDERS: Emergency Provider Emergency Medicine; Family Provider Internal Medicine; PCP Internal Medicine
DX: L30.9 Dermatitis, unspecified (principal); E66.9 Obesity, unspecified; J45.909 Unspecified asthma, uncomplicated; K21.9 Gastro-esophageal reflux disease without esophagitis; E11.9 Type 2 diabetes mellitus without complications; I10 Essential (primary) hypertension; E78.00 Pure hypercholesterolemia, unspecified; Z79.84 Long term (current) use of oral hypoglycemic drugs; Z79.51 Long term (current) use of inhaled steroids; Z79.899 Other long term (current) drug therapy
CPT/HCPCS: 99282

== ENCOUNTER 2018-11-17 23:19 | Emergency (ER) | payer MEDICARE, SELFPAY ==
[2018-11-17 23:20] VITALS: BP 135/67; PULSE 77; RESP 18; TEMP 37; O2SAT 97; BMI 44.4
--- NOTE | 2018-11-17 23:34 | ED.VIS.GEN ---
History of Present Illness Chief Complaint: Bite Informant: Patient Narrative: Today the patient developed a small lesion on his right side. There is no itching. He is unsure if he got bit by something. There is no tenderness when he touches it. Mild redness. It drained a small amount of blood. Current severity is mild. No surrounding redness. - Past Medical History (1) Knee buckling Status: Acute (2) Stress and adjustment reaction Status: Acute Past Medical History - Allergies and Home Meds Allergies/Adverse Reactions: Allergies tramadol Allergy (Verified 11/17/18 23:20) Chest tightness cephalexin monohydrate [From Keflex] Adverse Reaction (Verified 11/17/18 23:20) Vomiting ALSO CAUSED CHEST PAIN formoterol fumarate [From Dulera] Adverse Reaction (Verified 11/17/18 23:20) Vomiting mometasone furoate [From Dulera] Adverse Reaction (Verified 11/17/18 23:20) Vomiting Primary Care Physician: Joseph Kathleen MD [Primary Care Provider] - Prior records reviewed: Yes Past Medical History: - Surgical History: - - Reviewed Smoking Status: Current every day smoker Alcohol: None Drugs: None Review of Systems General: Denies: Chills, Fever, Sweats Eyes: Denies: Visual changes - bilaterally, Diplopia ENT: Denies: Rhinorrhea, Sore throat Cardiovascular: Denies: Chest pain, Palpitations Respiratory: Denies: Dyspnea, Cough, Dyspnea on exertion Gastrointestinal: Denies: Abdominal pain, Nausea, Vomiting, Diarrhea, Melena, Hematochezia Genitourinary: Denies: Dysuria, Hematuria, Frequency Musculoskeletal: Denies: Back pain, Extremity Pain Skin: Reports: Wounds. Denies: Rash Neurological: Denies: Headache, Weakness, Numbness Physical Exam Vital Signs/Narrative: Vital Signs Temp Pulse Resp BP Pulse Ox 11/17/18 23:20 98.6 F 77 18 135/67 H 97 General: Well nourished, Well developed, No Acute Distress Head: Normocephalic, Atraumatic Eyes: Perrl, EOMI ENT: Moist mucous membranes, No rhinorrhea Neck: Supple, Nontender Cardiovascular: Regular rate, Regular rhythm, No murmurs Respiratory: No distress, CTA bilaterally, Chest nontender Abdomen: Soft, Nontender, Nondistended, Normal bowel sounds Back: Nontender, Normal Inspection Extremities: Nontender, No edema Skin: - - Patient has a 0.5 x 0.5 superficial blister to his right lateral abdomen. This could be the beginning of a superficial abscess. I did unroofed easily. There is very mild clear bloody drainage. There is mild erythema to this area. No surrounding infection. Negative for: Normal color, No rash Neurological: Alert, Oriented x3, Cranial nerves II-XII grossly intact, Normal Strength, Normal Sensation Psychological: Normal affect, Normal Mood Diagnostic/Tx/Re-eval - Medical Decision Making Bacitracin applied. He will be given clindamycin lotion to use on this wound. He will follow-up as an outpatient return if it worsens. It is small. He does not need oral antibiotics. ED Disposition - Plan for ED Patient: Disposition: Home or Assisted Living Diagnosis: Wound abscess Instructions: Wound Care Prescriptions: Clindamycin Phosphate [Cleocin T] 60 ml TP TID #1 lotion Prescription Printed Referrals: Joseph Kathleen MD [Primary Care Provider] -
[2018-11-18 00:01] VITALS: BP 135/67; PULSE 77; RESP 16; O2SAT 98
[2018-11-18] MEDS: BACITRACIN 15 GM Tube 1 APPLIC TOPICAL (00:03)
== END 2018-11-18 00:04 | disposition home or self-care (01) ==
LOC: ED 23:46
PROVIDERS: Emergency Provider Emergency Medicine; Family Provider Internal Medicine; PCP Internal Medicine
DX: L02.211 Cutaneous abscess of abdominal wall (principal); F17.200 Nicotine dependence, unspecified, uncomplicated
CPT/HCPCS: 99283

== ENCOUNTER 2018-11-19 22:13 | Emergency (ER) | payer MEDICARE, SELFPAY ==
[2018-11-19 22:14] VITALS: BP 133/67; PULSE 88; RESP 18; TEMP 36.6; O2SAT 97; BMI 41.1
--- NOTE | 2018-11-19 23:39 | ED.DCSUM_ITS ---
- ER Visit Summary Date of Service: 11/19/18 Chief Complaint: Lesion right abdomen History of Present Illness: The patient is a 33 M who presents with a lesion on his right abdomen. He is concerned he may have been bitten by something. He was seen a couple of days ago and prescribed an antibiotic ointment which she has not yet filled. He reports scant drainage. No systemic symptoms. No fevers nausea vomiting. Physical Examination: Afebrile vitals are stable Heart regular rate and rhythm Lungs clear There is a tiny wound on the right abdomen there appears to have been a pustule that strain. He has maybe 2 cm of cellulitis around this. No fluctuance. No drainage. Test Results: Not indicated Emergency Department Course and Treatment: Patient prescribed oral clindamycin and discharged home. Treatment Plan: [] Disposition: Discharge Impression: Wound right abdomen Cellulitis This note was generated with [employer] dictation software. It may contain incorrect words, spelling, and punctuation that were not noted in review of the chart prior to signing ED Disposition - Plan for ED Patient: Referrals: Joseph Kathleen MD [Primary Care Provider] -
--- NOTE | 2018-11-19 23:41 | ED.DEP ---
ED Disposition - Plan for ED Patient: Instructions: Cellulitis Prescriptions: Clindamycin HCl [Cleocin] 300 mg PO Q6H #40 cap Prescription Printed Referrals: Joseph Kathleen MD [Primary Care Provider] -
[2018-11-19 23:45] VITALS: RESP 18
[2018-11-19 23:57] VITALS: BP 129/49; PULSE 81; RESP 15; O2SAT 96
== END 2018-11-19 23:58 | disposition home or self-care (01) ==
LOC: ED 23:51
PROVIDERS: Emergency Provider Emergency Medicine; Family Provider Internal Medicine; PCP Internal Medicine
DX: L03.311 Cellulitis of abdominal wall (principal); S31.109D Unspecified open wound of abdominal wall, unspecified quadrant without penetration into peritoneal cavity, subsequent encounter; E11.9 Type 2 diabetes mellitus without complications; E78.00 Pure hypercholesterolemia, unspecified; Z72.0 Tobacco use; Z79.84 Long term (current) use of oral hypoglycemic drugs; Z79.899 Other long term (current) drug therapy; X58.XXXD Exposure to other specified factors, subsequent encounter
CPT/HCPCS: 99282

== ENCOUNTER 2019-01-27 21:50 | Emergency (ER) | payer MEDICARE, SELFPAY ==
[2019-01-27 21:50] VITALS: BP 141/74; PULSE 83; RESP 18; TEMP 36.7; O2SAT 98; BMI 46.0
--- NOTE | 2019-01-27 22:35 | ED.DCSUM_ITS ---
History of Present Illness Chief Complaint: Back Informant: Patient Onset: Today Context: Sudden Onset Timing: Continuous Narrative: Patient is a 33-year-old male with history of 2 bulging disc, hypertension, diabetes and asthma presenting with back pain. Patient states he was helping his girlfriend at a meeting and pushing some chairs when he suddenly had back pain. He states is in his lower mid back. It is worse on the right side. He has pain that radiates down his right leg. He describes the pain as sharp and burning he states he had a hard time walking into the ER because of the pain. He denies any weakness. He denies any history of IV drug use or cancer. He denies any bowel or bladder incontinence. He denies any perineal numbness. He denies any other complaints at this time. Patient did take Naprosyn prior to coming in. Past Medical History - Allergies and Home Meds Allergies/Adverse Reactions: Allergies tramadol Allergy (Verified 11/19/18 22:14) Chest tightness cephalexin monohydrate [From Keflex] Adverse Reaction (Verified 11/19/18 22:14) Vomiting ALSO CAUSED CHEST PAIN formoterol fumarate [From Dulera] Adverse Reaction (Verified 11/19/18 22:14) Vomiting mometasone furoate [From Dulera] Adverse Reaction (Verified 11/19/18 22:14) Vomiting Primary Care Physician: Joseph Kathleen MD [Primary Care Provider] - Past Medical History: - - Hypertension, hyperlipidemia, diabetes mellitus, asthma Surgical History: - - Reviewed Smoking Status: Current every day smoker Review of Systems All systems negative except as indicated Musculoskeletal: Reports: Back pain Physical Exam Vital Signs/Narrative: Vital Signs Temp Pulse Resp BP Pulse Ox 01/27/19 21:50 98.1 F 83 18 141/74 H 98 Inital Vital Signs reviewed: Yes General: Well nourished, Well developed, Obese, No Acute Distress Head: Normocephalic, Atraumatic Eyes: Perrl, EOMI ENT: Moist mucous membranes, No rhinorrhea Neck: Supple, Nontender Cardiovascular: Regular rate, Regular rhythm, No murmurs Respiratory: No distress, CTA bilaterally, Chest nontender Abdomen: Soft, Nontender, Nondistended, Normal bowel sounds Back: Normal Inspection, - - No step-off sign, right paraspinal tenderness to palpation around L1 and L2. Negative for: CVA tenderness, Spinal tenderness Extremities: Nontender, No edema, - - 2+ bilateral DP pulses, sensation and strength intact in all dermatomes, positive straight leg test bilaterally- causing pain to radiate down the right leg Skin: Normal color, No rash Neurological: Alert, Oriented x3, Cranial nerves II-XII grossly intact, Normal Strength, Normal Sensation Psychological: Normal affect, Normal Mood Diagnostic/Tx/Re-eval - Medical Decision Making Patient evaluated for acute worsening of low back pain. He is a normal neurologic exam. He has no symptoms consistent with cauda equina syndrome. Patient did take Naprosyn prior to arrival. He is given IM Flexeril. He is not given steroids because he is a diabetic. Patient likely has sciatica. I Do not think emergent and imaging is indicated. Patient is counseled that this can take weeks to months to resolve. He is encouraged strongly to follow-up with his primary care physician next week. Patient is counseled on signs and symptoms requiring return to the emergency room. Patient verbalizes agreement and understand this plan. Patient discharged home in stable and improved condition. ED Disposition - Plan for ED Patient: Disposition: Home or Assisted Living Diagnosis: Lumbar back pain Instructions: BACK PAIN w/ SCIATICA Prescriptions: cycloBENZAPRine HCl [Flexeril] 10 mg PO TID PRN PRN #15 tab PRN Reason: Spasms Prescription Printed Referrals: Joseph Kathleen MD [Primary Care Provider] - Additional Instructions: Return to the emergency room for reevaluation if you developing worsening symptoms, incontinence or numbness/weakness. Please follow-up with your primary care doctor. Take 500 mg of Naprosyn twice a day for pain as well.
[2019-01-27] MEDS: Orphenadrine 60 MG/2 ML Ampul IM (23:07)
[2019-01-27 23:08] VITALS: BP 136/80; PULSE 80; RESP 14; O2SAT 98
== END 2019-01-27 23:39 | disposition home or self-care (01) ==
PROVIDERS: Emergency Provider Emergency Medicine; Family Provider Internal Medicine; PCP Internal Medicine
DX: M54.5 Low back pain (principal); J45.909 Unspecified asthma, uncomplicated; E11.9 Type 2 diabetes mellitus without complications; I10 Essential (primary) hypertension; F17.200 Nicotine dependence, unspecified, uncomplicated; E66.9 Obesity, unspecified
CPT/HCPCS: 96372; 99283

== ENCOUNTER 2019-03-02 16:36 | Emergency (ER) | payer MEDICARE, SELFPAY ==
[2019-03-02 16:36] VITALS: BP 142/75; PULSE 95; RESP 15; TEMP 37.2; O2SAT 96; BMI 46.7
--- NOTE | 2019-03-02 17:00 | RAD_ITS ---
STUDY: X-RAY - RIGHT WRIST REASON FOR EXAM: Male, 33 years old. Pain. TECHNIQUE: 3 view(s) of the wrist were obtained. COMPARISON: None. FINDINGS: Normal visualized distal radius and ulna. Normal radiocarpal articulation. Normal distal radioulnar articulation. Normal carpal bones. Normal carpal articulations. Normal carpometacarpal articulation of the thumb. Normal second through fifth carpometacarpal articulations. Normal visualized metacarpal bones. The soft tissue structures are unremarkable. There is no demonstrated acute fracture. RAD/Wrist min 3 Views IMPRESSION: Normal x-ray examination of the wrist. Electronically Signed: Onur Blake MD at 17:20 EST , Service support ,
--- NOTE | 2019-03-02 17:02 | ED.VISSUMM ---
- ER Visit Summary Date of Service: 03/02/19 Chief Complaint: Right wrist pain History of Present Illness: The patient is a 33 M with right wrist pain since yesterday. He was raking when he felt a pop in the wrist. He never had this before. Worse with movement. Motion is intact and he denies any weakness or numbness. He denies any other injuries or complaints. Physical Examination: Normal inspection right wrist. Range of motion intact. Active and passive motion intact. No deformities or laxities. Skin is intact. No redness, warmth, or swelling. Test Results: We will check plain images. Emergency Department Course and Treatment: Patient treated with ice pack and naproxen while awaiting x-ray results. Treatment Plan: As above Disposition: Discharge Impression: Right wrist pain This note was generated with [employer] dictation software. It may contain incorrect words, spelling, and punctuation that were not noted in review of the chart prior to signing ED Disposition - Plan for ED Patient: Referrals: Joseph Kathleen MD [Primary Care Provider] -
[2019-03-02] MEDS: Naproxen 500 MG Tablet PO (17:10)
--- NOTE | 2019-03-02 17:51 | ED.DEP ---
ED Disposition - Plan for ED Patient: Instructions: Wrist Sprain Prescriptions: Naproxen [Naprosyn] 500 mg PO BID PRN #20 tab Prescription Printed Referrals: Joseph Kathleen MD [Primary Care Provider] -
== END 2019-03-02 18:01 | disposition home or self-care (01) ==
LOC: ED 17:12
PROVIDERS: Emergency Provider Emergency Medicine; Family Provider Internal Medicine; PCP Internal Medicine
DX: M25.531 Pain in right wrist (principal); E11.9 Type 2 diabetes mellitus without complications; J45.909 Unspecified asthma, uncomplicated; Z72.0 Tobacco use
CPT/HCPCS: 73110; 99283

== ENCOUNTER 2019-04-07 11:39 | Emergency (ER) | payer MEDICARE, MEDICAID, SELFPAY ==
[2019-04-07 11:40] VITALS: BP 140/81; PULSE 90; RESP 18; TEMP 36.7; O2SAT 95; BMI 46.8
[2019-04-07 11:53] VITALS: BP 119/86; PULSE 81; RESP 20; O2SAT 95
--- NOTE | 2019-04-07 12:14 | RAD_ITS ---
STUDY: X-RAY CHEST REASON FOR EXAM: Male, 33 years old. COUGH, CHEST PAIN TECHNIQUE: PA and lateral views of the chest. COMPARISON: Comparison is made with prior examination dated May 02, 2018. FINDINGS: EKG electrodes are seen. The lungs are clear and expanded. There is no demonstrated pleural abnormality. Normal size heart. Normal mediastinum and glenn. Normal visualized pulmonary arteries. Normal visualized aortic arch and descending thoracic aorta. Normal visualized thoracic spine. Normal visualized ribs, clavicles, and shoulders. There is no demonstrated abnormality of the visualized soft tissue structures of the upper abdomen. RAD/Chest PA and Lateral IMPRESSION: Normal x-ray examination of the chest. Electronically Signed: David Gottlieb, at 13:42 EST , Service support ,
--- NOTE | 2019-04-07 12:18 | ED.DCSUM_ITS ---
History of Present Illness Chief Complaint: Abd Pain Detail of Chief Complaint: n/v w/ blood, cough, asthma Informant: Patient - Abdominal Pain/Flank Pain Onset: Days - 3 Context: Gradual Onset Timing: Continuous Quality: - - Tightness Location: - - Across chest Current Severity: Mild Maximum Severity: Moderate Worsened by: - - Coughing/vomiting Relieved by: - - Albuterol - Nausea/Vomiting/Emesis GI Symptom: Nausea, Vomiting Onset: Today Quality: Blood streaks. Negative for: Coffee ground, Hematemesis - Not gross Severity: Once - Diarrhea/Melena/Hematochezia GI Symptom: Diarrhea - Dark, watery Stool Quality: Negative for: Mucous, Maroon, VANITA per rectum Severity: Mild Associated Symptoms: Negative for: Dysuria, Frequency, Hematuria Narrative: Patient went to urgent care and was redirected here to the ER because he had some blood streaks in his emesis. Used to be an alcoholic, but has been sober for 6 years. Is a diabetic, type II [id number], compliant with his medication, blood sugar was 145 this morning. Has not been really having any abdominal pain until he was examined at urgent care, noticed that he was tender upper abdomen. More chest tightness related to his asthma that is better when he uses his albuterol inhaler. His cough is been nonproductive and he did not cough up blood. Mild dyspnea associated with wheezing. No leg swelling or history of heart problems. - Past Medical History (1) Asthma Status: Chronic (2) Type 2 diabetes mellitus Status: Chronic (3) Anxiety Status: Chronic Past Medical History - Allergies and Home Meds Allergies/Adverse Reactions: Allergies tramadol Allergy (Verified 04/07/19 11:40) Chest tightness cephalexin monohydrate [From Keflex] Adverse Reaction (Verified 04/07/19 11:40) Vomiting ALSO CAUSED CHEST PAIN formoterol fumarate [From Dulera] Adverse Reaction (Verified 04/07/19 11:40) Vomiting mometasone furoate [From Dulera] Adverse Reaction (Verified 04/07/19 11:40) Vomiting Primary Care Physician: Joseph Kathleen MD [Primary Care Provider] - Surgical History: - - Reviewed Lives: With Family Smoking Status: Current every day smoker Alcohol: Sober - x 6 yrs Drugs: None Review of Systems General: Denies: Chills, Fever, Sweats Eyes: Denies: Visual changes - bilaterally, Diplopia ENT: Denies: Bilateral ear pain, Rhinorrhea, Sore throat Cardiovascular: Reports: Chest pain. Denies: Palpitations Respiratory: Reports: Dyspnea, Cough. Denies: Dyspnea on exertion Gastrointestinal: Reports: Nausea, Vomiting. Denies: Abdominal pain, Diarrhea, Hematochezia Genitourinary: Denies: Dysuria, Hematuria, Frequency Musculoskeletal: Denies: Neck pain, Back pain, Swelling, Extremity Pain Skin: Denies: Rash, Wounds Neurological: Denies: Headache, Weakness, Numbness Physical Exam Vital Signs/Narrative: Vital Signs Temp Pulse Resp BP Pulse Ox 04/07/19 11:53 81 20 H 119/86 H 95 04/07/19 11:40 98.1 F 90 18 140/81 H 95 Inital Vital Signs reviewed: Yes General: Well nourished, Well developed, Obese, No Acute Distress Head: Normocephalic, Atraumatic Eyes: Perrl, EOMI ENT: Moist mucous membranes, No rhinorrhea Neck: Supple, Nontender, No lymphadenopathy, No JVD Cardiovascular: Regular rate, Regular rhythm, No murmurs Respiratory: No distress, CTA bilaterally, Chest nontender Abdomen: Soft, Nondistended, Normal bowel sounds, Tender - across upper abd, a little worse according to pt in RUQ. Negative for: Guarding, Rebound tenderness, Coppola's sign Back: Nontender, Normal Inspection. Negative for: CVA tenderness Extremities: Nontender, No edema. Negative for: Calf Tenderness Skin: Normal color, No rash, No Trauma Neurological: Alert, Oriented x3, Cranial nerves II-XII grossly intact, Normal Strength, Normal Sensation Psychological: Normal affect, Normal Mood Diagnostic/Tx/Re-eval Impressions Chest X-Ray 04/07/19 12:14 IMPRESSION: Normal x-ray examination of the chest. Electronically Signed: David Gottlieb, at 13:42 EST , Service support , 04/07/19 12:14 Chest PA and Lateral [RAD] Stat Laboratory Results 04/07/19 04/07/19 12:53 12:53 WBC 7.6 RBC 4.92 Hgb 14.6 Hct 43.1 MCV 87.6 MCH 29.7 MCHC 33.9 RDW Std Deviation 40.5 RDW Coeff of Shashi 12.7 Plt Count 213 MPV 11.1 Immature Gran % (Auto) 0.400 Neut % (Auto) 55.7 Lymph % (Auto) 35.0 Pickens % (Auto) 7.4 Eos % (Auto) 1.1 Baso % (Auto) 0.4 Absolute Neuts (auto) 4.2 Absolute Lymphs (auto) 2.65 Nucleated RBC % 0 Sodium 141 Potassium 4.1 Chloride 107 Carbon Dioxide 29.0 Anion Gap 5 BUN 15 Creatinine 0.97 Estim Creat Clear Calc 110.80 Est GFR (MDRD) Af Amer 114 Est GFR (MDRD) Non-Af 94 BUN/Creatinine Ratio 15.5 Glucose 123 H Calcium 9.0 Total Bilirubin 0.90 AST 37 ALT 77 H Alkaline Phosphatase 67 Total Protein 8.2 Albumin 3.9 Globulin 4.3 H Albumin/Globulin Ratio 0.9 Lipase 87 - Medical Decision Making Patient feels better after an aerosol. He will be started on prednisone. His chest x-ray is normal, and given his symptoms I do not think antibiotics are indicated. His labs are normal. There is no elevation of his BUN or depression of his hemoglobin to suggest significant GI bleeding here. Suspect gastritis. GI cocktail really helped his abdominal discomfort. His liver enzymes and lipase are normal. Therefore, my suspicion for biliary colic here is much less. I reassure him, prescribe him PPI, prednisone, and advised him to follow-up with his doctor, he is comfortable with that plan. We discussed reasons to return. ED Disposition - Plan for ED Patient: Disposition: Home or Assisted Living Diagnosis: Acute gastritis with bleeding, Acute asthma exacerbation, Viral URI with cough Instructions: GASTRITIS vs. ULCER, Understanding Asthma Prescriptions: Omeprazole 1 cap PO DAILY #14 capsule.dr Prescription Printed predniSONE tablet 40 mg PO DAILY #12 tab Prescription Printed Referrals: Joseph Kathleen MD [Primary Care Provider] - 3-5 Days if not improving
[2019-04-07 12:24] VITALS: PULSE 88; RESP 20
[2019-04-07] MEDS: Ipratropium/Albuterol Sulfate 3 ML AMPUL.NEB INHALATION (12:24)
[2019-04-07] MEDS: 0.9% Normal Saline 1,000 ML 999 ML IV (12:49)
[2019-04-07] MEDS: Ondansetron 4 MG/2 ML Vial IV (12:50)
[2019-04-07] MEDS: 0.9% Normal Saline 1,000 ML 1000 ML IV (12:50)
[2019-04-07] MEDS: Mag Hydrox/Al Hydrox/Simeth 30 ML UDC PO (12:51)
[2019-04-07 13:00] LABS: Absolute Lymphocyte Count 2.65 X10^3/uL (0.83-4.51); Absolute Neutrophil Count 4.2 X10^3/uL (2.0-7.7); Basophil# 0.03 X10^3/uL; Basophil% 0.4 % (0-1); Eosinophil# 0.08 X10^3/uL; Eosinophils% 1.1 % (0-5); Hematocrit 43.1 % (40-54); Hemoglobin 14.6 g/dL (13.0-16.5); Lymphocyte # 2.65 X10^3/ul (4.0); Mean Corp Hgb Conc 33.9 g/dL (32-36); Mean Corpuscular Hgb 29.7 pg (27.0-32.0); Mean Corpuscular Volume 87.6 fL (80-94); Mean Platelet Vol. 11.1 fl (6.2-12.0); Monocyte# 0.56 X10^3/uL; Monocyte% 7.4 % (0-10); NRBC Flagged by Analyzer 0 % (0-5); Neutrophil # 4.22 X10^3/uL (2.7-7.7); Neutrophil % 55.7 % (47-70); Platelet Count 213 K/mm3 (150-450); RBC Distribution Width CV 12.7 % (11.6-14.6); RBC Distribution Width SD 40.5 fl (35.1-43.9); Red Blood Count 4.92 M/mm3 (4.6-6.2); White Blood Count 7.6 K/mm3 (4.4-11.0)
[2019-04-07 13:15] LABS: ALB/GLOB Ratio 0.9 RATIO (0.9-2.4); AST(SGOT) 37 U/L (15-37); Alanine Aminotransfer ALT/SGPT 77 U/L (16-61); Albumin, Serum 3.9 g/dL (3.2-5.0); Alkaline Phosphatase 67 U/L (45-117); Anion Gap 5 (5-15); BUN 15 mg/dL (7-18); BUN/Creat Ratio 15.5 RATIO (10-20); Chloride 107 mmol/L (98-107); Creatinine, Serum 0.97 mg/dL (0.70-1.30); EST Glomerular Filtration Rate 94 mL/min (>60); Est Glom Filt Rate - Afr Amer 114 mL/min (>60); Globulin 4.3 g/dL (2.2-4.2); Glucose 123 mg/dL (74-106); Lipase 87 U/L (73-393); Potassium 4.1 mmol/L (3.5-5.1); Protein, Total 8.2 g/dL (6.4-8.2); Sodium Level 141 mmol/L (136-145)
[2019-04-07 15:04] VITALS: BP 130/96; PULSE 80; RESP 16; O2SAT 98
== END 2019-04-07 15:07 | disposition home or self-care (01) ==
PROVIDERS: Emergency Provider Emergency Medicine; Family Provider Internal Medicine; PCP Internal Medicine
DX: K29.01 Acute gastritis with bleeding (principal); J45.901 Unspecified asthma with (acute) exacerbation; J06.9 Acute upper respiratory infection, unspecified; E11.9 Type 2 diabetes mellitus without complications; F17.200 Nicotine dependence, unspecified, uncomplicated; E66.9 Obesity, unspecified
CPT/HCPCS: 71046; 80053; 83690; 85025; 94640; 96361; 96374; 99284; J7030; A4216; J2405

== ENCOUNTER 2019-04-13 20:19 | Emergency (ER) | payer MEDICARE, MEDICAID, SELFPAY ==
[2019-04-13 20:20] VITALS: BP 148/76; PULSE 85; RESP 16; TEMP 36.6; O2SAT 98; BMI 46.3
--- NOTE | 2019-04-13 20:25 | RAD_ITS ---
STUDY: X-RAY - LEFT SHOULDER REASON FOR EXAM: Male, 33 years old. LEFT SHOULDER PAIN STARTING TODAY TECHNIQUE: 4 view(s) of the shoulder. COMPARISON: None. FINDINGS: Normal glenohumeral articulation. Normal acromioclavicular joint. Normal acromion. Normal humeral head and visualized proximal humerus. The soft tissue structures are unremarkable. Normal visualized pulmonary apex. RAD/Shoulder min 2 Views IMPRESSION: Normal x-ray examination of the shoulder. Electronically Signed: Ever Dunn MD at 20:41 EST , Service support ,
--- NOTE | 2019-04-13 21:25 | ED.DCSUM_ITS ---
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 He states while working today it became worse. Overhead movements are worse. He points to the subacromial area on the left shoulder. [id number]. No direct injury. No neurologic symptoms. States he feels his joint clunking in and out sometimes but that is a chronic issue as well. He has never dislocated to his knowledge. - Past Medical History (1) Anxiety Status: Chronic (2) Asthma Status: Chronic (3) Type 2 diabetes mellitus Status: Chronic Past Medical History - Allergies and Home Meds Allergies/Adverse Reactions: Allergies tramadol Allergy (Verified 04/13/19 20:22) Chest tightness cephalexin monohydrate [From Keflex] Adverse Reaction (Verified 04/13/19 20:22) Vomiting ALSO CAUSED CHEST PAIN formoterol fumarate [From Dulera] Adverse Reaction (Verified 04/13/19 20:22) Vomiting mometasone furoate [From Dulera] Adverse Reaction (Verified 04/13/19 20:22) Vomiting Primary Care Physician: Joseph Kathleen MD [Primary Care Provider] - Surgical History: - - Reviewed Lives: With Family Smoking Status: Current every day smoker Review of Systems General: Denies: Chills, Fever, Sweats Musculoskeletal: Reports: Extremity Pain. Denies: Neck pain, Back pain, Swelling Skin: Denies: Rash, Wounds Neurological: Denies: Headache, Weakness, Numbness Physical Exam Vital Signs/Narrative: Vital Signs Temp Pulse Resp BP Pulse Ox 04/13/19 20:20 97.9 F 85 16 148/76 H 98 General: Well nourished, Well developed, Obese, - - nad Head: Normocephalic, Atraumatic Extremeties: Tender left subacromial area. No bony tenderness. No acromioclavicular joint tenderness. No clavicle tenderness. Mild anterior joint tenderness. He has full range of motion throughout the entire shoulder including overhead which hurts worse. He has a negative drop sign with full a bduction. Skin: Normal color, No rash, No Trauma Neurological: Alert, Oriented x3, Cranial nerves II-XII grossly intact, Normal Strength, Normal Sensation, Normal Gait Psychological: Normal affect, Normal Mood Diagnostic/Tx/Re-eval Clinical Impression(s) from Imaging Studies Shoulder X-Ray 04/13/19 20:25 IMPRESSION: Normal x-ray examination of the shoulder. Electronically Signed: Ever Dunn MD at 20:41 EST , Service support , - Medical Decision Making X-ray unremarkable. He has impingement syndrome and could have chronic bursitis given the length of time this is been bothering him. He wants a work note for tomorrow which I am happy to provide him, but he was advised that he will need to follow-up with orthopedics for this which he has never done as this is something that we cannot fix in the emergency department. I will put him on anti-inflammatories however. ED Disposition - Plan for ED Patient: Disposition: Home or Assisted Living Diagnosis: Impingement syndrome of left shoulder Instructions: Shoulder Impingement Syndrome Prescriptions: Naproxen [Naprosyn] 500 mg PO BID PRN #20 tab Prescription Printed Referrals: Rodney Lay MD [STAFF PHYSICIAN] - As soon as possible
[2019-04-13] MEDS: Naproxen 500 MG Tablet PO (21:40)
[2019-04-13 21:44] VITALS: RESP 18
== END 2019-04-13 21:44 | disposition home or self-care (01) ==
PROVIDERS: Emergency Provider Emergency Medicine; Family Provider Internal Medicine; PCP Internal Medicine
DX: M75.42 Impingement syndrome of left shoulder (principal); E11.9 Type 2 diabetes mellitus without complications; F41.9 Anxiety disorder, unspecified; J45.909 Unspecified asthma, uncomplicated; E66.9 Obesity, unspecified; Z79.84 Long term (current) use of oral hypoglycemic drugs; Z79.899 Other long term (current) drug therapy; F17.200 Nicotine dependence, unspecified, uncomplicated
CPT/HCPCS: 73030; 99283

== ENCOUNTER 2019-10-14 23:13 | Emergency (ER) | payer MEDICARE, MEDICAID, SELFPAY ==
[2019-10-14 23:14] VITALS: BP 140/81; PULSE 76; RESP 15; TEMP 36.9; O2SAT 97; BMI 46.3
--- NOTE | 2019-10-14 23:24 | ED.VIS.GEN ---
History of Present Illness Chief Complaint: Upper Extremity Injury Informant: Patient Onset: Days Context: Gradual Onset Timing: Continuous Current Severity: Moderate Maximum Severity: Moderate Narrative: Patient is a 34-year-old male who is right-hand dominant that presents to the emergency department for right shoulder pain. Patient is for the past 2 days, if he pushes up with his shoulder or abduction his arm, he gets pain. He states is right over the deltoid area. He has not taken anything for it. He denies any falls. He denies any swelling of the arm. He said no fever or chills. Prior similar symptoms: No Recent Illness/Hospitalization: No Past Medical History - Allergies and Home Meds Allergies/Adverse Reactions: Allergies tramadol Allergy (Verified 10/14/19 23:18) Chest tightness cephalexin monohydrate [From Keflex] Adverse Reaction (Verified 10/14/19 23:18) Vomiting ALSO CAUSED CHEST PAIN formoterol fumarate [From Dulera] Adverse Reaction (Verified 10/14/19 23:18) Vomiting mometasone furoate [From Dulera] Adverse Reaction (Verified 10/14/19 23:18) Vomiting Primary Care Physician: Joseph Kathleen MD [Primary Care Provider] - Prior records reviewed: Yes Past Medical History: - - Prior abscess, diabetes Surgical History: - - Reviewed Smoking Status: Current every day smoker Review of Systems General: Denies: Chills, Fever, Sweats Eyes: Denies: Visual changes - bilaterally, Diplopia ENT: Denies: Rhinorrhea, Sore throat Cardiovascular: Denies: Chest pain, Palpitations Respiratory: Denies: Dyspnea, Cough, Dyspnea on exertion Gastrointestinal: Denies: Abdominal pain, Nausea, Vomiting, Diarrhea, Melena, Hematochezia Genitourinary: Denies: Dysuria, Hematuria, Frequency Musculoskeletal: Denies: Back pain, Extremity Pain Skin: Denies: Rash, Wounds Neurological: Denies: Headache, Weakness, Numbness Physical Exam Vital Signs/Narrative: Vital Signs Temp Pulse Resp BP Pulse Ox 10/14/19 23:14 98.5 F 76 15 140/81 H 97 Inital Vital Signs reviewed: Yes General: Well nourished, Well developed, No Acute Distress Head: Normocephalic, Atraumatic Eyes: Perrl, EOMI ENT: Moist mucous membranes, No rhinorrhea Neck: Supple, Nontender Cardiovascular: Regular rate, Regular rhythm, No murmurs Respiratory: No distress, CTA bilaterally, Chest nontender Abdomen: Soft, Nontender, Nondistended, Normal bowel sounds Back: Nontender, Normal Inspection Extremities: No edema, Tenderness - Tender over the deltoid. No gross laxity. Normal pulses. Axillary nerve preserved. Skin: Normal color, No rash Neurological: Alert, Oriented x3, Cranial nerves II-XII grossly intact, Normal Strength, Normal Sensation Psychological: Normal affect, Normal Mood Diagnostic/Tx/Re-eval - Medical Decision Making Plain films were obtained of the shoulder. There is no evidence of fracture dislocation. My suspicion is that he likely has a deltoid strain. He will be given a sling for comfort but was counseled on range of motion exercises to avoid frozen shoulder. He will placed on anti-inflammatories will be discharged home. Impression 1. Right deltoid strain ED Disposition - Plan for ED Patient: Instructions: ED Shoulder Sprain Prescriptions: Naproxen [Naprosyn] 500 mg PO BID PRN #20 tab Prescription Printed Referrals: Joseph Kathleen MD [Primary Care Provider] -
--- NOTE | 2019-10-14 23:30 | RAD_ITS ---
HISTORY: no known injury. pain in lateral side of proximal humerus when abducts arm and then raises to the side. pain for 2 days Exam: Right Shoulder COMPARISON: None FINDINGS: # of images incl. paperwork: 4 XR Shoulder for Views: The humeral head is well-positioned within the glenoid fossa. No fracture or subluxation. The acromioclavicular joint is normal. The adjacent chest is unremarkable. RAD/Shoulder min 2 Views IMPRESSION: Normal right shoulder. at 0003 Reported and signed by: Jose Beyer MD Electronically Signed: Jose Beyer MD at 0:02 EDT Tel , Service support ,
[2019-10-14] MEDS: Ibuprofen 600 MG Tablet PO (23:55)
[2019-10-14 23:59] VITALS: RESP 15
== END 2019-10-15 | disposition home or self-care (01) ==
LOC: ED 23:40
PROVIDERS: Emergency Provider Emergency Medicine; PCP Internal Medicine
DX: S46.811A Strain of other muscles, fascia and tendons at shoulder and upper arm level, right arm, initial encounter (principal); E11.9 Type 2 diabetes mellitus without complications; Z79.84 Long term (current) use of oral hypoglycemic drugs; X58.XXXA Exposure to other specified factors, initial encounter; Y93.89 Activity, other specified; Y92.89 Other specified places as the place of occurrence of the external cause; Y99.8 Other external cause status
CPT/HCPCS: 73030; 99283

== ENCOUNTER 2020-02-13 14:34 | Emergency (ER) | payer MEDICARE, MEDICAID, SELFPAY ==
[2020-02-13] VITALS (8 sets, daily range): BP systolic 110–150; BP diastolic 66–77; PULSE 106–145; RESP 19–42; TEMP 36.4; O2SAT 92–96; BMI 47.3
--- NOTE | 2020-02-13 15:13 | EKG12_ITS ---
Test Reason : SOB Blood Pressure : / mmHG Vent. Rate : 112 BPM Atrial Rate : 112 BPM P-R Int : 130 ms QRS Dur : 072 ms QT Int : 308 ms P-R-T Axes : 042 026 036 degrees QTc Int : 420 ms Sinus tachycardia Nonspecific T wave abnormality Abnormal ECG Confirmed by DAVIDA BURCH, FELISHA ([id number]), film editor supervisor JOURDAN OROURKE ([id number]) on 02/15/2020 9:17:28 AM Referred By: ANN-MARIE Confirmed By:FELISHA HIGUERA MD
[2020-02-13] MEDS: Ipratropium/Albuterol Sulfate 3 ML AMPUL.NEB INHALATION (15:38)
--- NOTE | 2020-02-13 15:57 | RAD_ITS ---
STUDY: X-RAY CHEST REASON FOR EXAM: Male, 34 years old. Cough. Shortness of breath. Patient unable to take full inspiration without coughing. TECHNIQUE: Single AP portable view of the chest. COMPARISON: 04/07/2019. FINDINGS: There is a decreased inspiratory effort when compared to prior study. There is bibasilar atelectatic changes versus minimal infiltrates. There is no focal consolidation or mass. There is no demonstrated pleural abnormality. No change in heart size. Normal mediastinum and glenn. Normal visualized pulmonary arteries. Normal visualized aortic arch and descending thoracic aorta. No visualized osseous changes. There is no demonstrated abnormality of the visualized soft tissue structures of the upper abdomen. RAD/Chest 1 View (Portable) IMPRESSION: A Limited inspiration with bibasilar atelectasis/infiltrate. Electronically Signed: Kaiser Singh DO at 16:10 EDT Tel [phone], Service support ,
[2020-02-13 16:13] LABS: Absolute Lymphocyte Count 1.08 X10^3/uL (0.83-4.51); Absolute Neutrophil Count 3.4 X10^3/uL (2.0-7.7); Basophil# 0.01 X10^3/uL; Basophil% 0.2 % (0-1); Hematocrit 39.3 % (40-54); Hemoglobin 13.2 g/dL (13.0-16.5); Lymphocyte # 1.08 X10^3/ul (4.0); Lymphocyte % 22.5 % (19-41); Mean Corp Hgb Conc 33.6 g/dL (32-36); Mean Corpuscular Hgb 29.1 pg (27.0-32.0); Mean Corpuscular Volume 86.6 fL (80-94); Mean Platelet Vol. 11.9 fl (6.2-12.0); Monocyte# 0.33 X10^3/uL; Monocyte% 6.9 % (0-10); NRBC Flagged by Analyzer 0 % (0-5); Neutrophil # 3.36 X10^3/uL (2.7-7.7); Neutrophil % 70.2 % (47-70); Platelet Count 149 K/mm3 (150-450); RBC Distribution Width CV 12.9 % (11.6-14.6); RBC Distribution Width SD 40.8 fl (35.1-43.9); Red Blood Count 4.54 M/mm3 (4.6-6.2); White Blood Count 4.8 K/mm3 (4.4-11.0)
--- NOTE | 2020-02-13 16:17 | ED.VIS.GEN ---
History of Present Illness Chief Complaint: Shortness of Breath Informant: Patient Narrative: Patient is a 34-year-old male with a past medical history of asthma who presents to the ED for shortness of breath. His symptoms have been present over the past week. He states that he has the coughing version of asthma. The cold weather has been triggering this. He has been using his home inhalers which did not give him any relief. He did do a virtual visit with his PCP last week at onset of symptoms who put him on a 3-day course of steroids. He did not get any relief during this time. He denies any fevers or chills. No known sick contacts. No nausea vomiting. No change in bowel habits. Denies any leg swelling or calf pain. He does have chest pain associated with this when coughing. He is a current everyday smoker but has not been able to since this is been going on. His cough has been productive of sputum. Past Medical History - Allergies and Home Meds Allergies/Adverse Reactions: Allergies tramadol Allergy (Verified 10/14/19 23:18) Chest tightness cephalexin monohydrate [From Keflex] Adverse Reaction (Verified 10/14/19 23:18) Vomiting ALSO CAUSED CHEST PAIN formoterol fumarate [From Dulera] Adverse Reaction (Verified 10/14/19 23:18) Vomiting mometasone furoate [From Dulera] Adverse Reaction (Verified 10/14/19 23:18) Vomiting Primary Care Physician: Joseph Kathleen MD [Primary Care Provider] - 2 Days Prior records reviewed: Yes Surgical History: - - Reviewed Smoking Status: Current every day smoker Review of Systems All systems negative except as indicated General: Denies: Chills, Fever, Sweats Eyes: Denies: Visual changes - bilaterally, Diplopia ENT: Denies: Rhinorrhea, Sore throat Cardiovascular: Reports: Chest pain - Chest wall. Denies: Palpitations Respiratory: Reports: Cough. Denies: Dyspnea, Dyspnea on exertion Gastrointestinal: Denies: Abdominal pain, Nausea, Vomiting, Diarrhea Genitourinary: Denies: Dysuria, Hematuria, Frequency Musculoskeletal: Denies: Back pain, Extremity Pain Skin: Denies: Rash, Wounds Neurological: Denies: Headache, Weakness, Numbness Physical Exam Vital Signs/Narrative: Vital Signs Temp Pulse Resp BP Pulse Ox 02/13/20 15:38 116 H 31 H 02/13/20 14:35 97.5 F L 110 H 19 H 110/71 96 Inital Vital Signs reviewed: Yes General: Well nourished, Well developed, No Acute Distress Head: Normocephalic, Atraumatic Eyes: Perrl, EOMI ENT: Moist mucous membranes, No rhinorrhea Neck: Supple, Nontender Cardiovascular: Regular rhythm, No murmurs, Tachycardia Respiratory: No distress, Chest nontender, Diminished - bilateral., - - Able to speak in full sentences Abdomen: Soft, Nontender, Nondistended, Normal bowel sounds Back: Nontender, Normal Inspection Extremities: Nontender, No edema. Negative for: Calf Tenderness Skin: Normal color, No rash Neurological: Alert, Oriented x3, Cranial nerves II-XII grossly intact, Normal Strength, Normal Sensation Psychological: Normal affect, Normal Mood Diagnostic/Tx/Re-eval - EKG Initial EKG Interpretation: - - Rate of 112 bpm in sinus tachycardia. Normal intervals. Normal axis. No ST elevations or depressions. No T wave abnormalities. - Medical Decision Making Patient presents to the ED for cough and shortness of breath. He believes he is having acute asthma flare. On physical exam he has no wheezing but he states that his asthma is only really coughing symptoms. Will check basic lab work, EKG and chest x-ray. Is given a DuoNeb breathing treatment. Coronavirus test sent out. Patient's x-ray read as bibasilar atelectasis versus infiltrates. He does not have an elevated white blood cell count. The rest of his lab work is not significant for acute abnormality. Patient ambulated around the room with a pulse oximeter and did not desaturate past 94%. He has been tachycardic so he was started on IV fluids. He did respond well to this and came down into the 90s. Patient was offered hospitalization given the infiltrates and was symptomatic with shortness of breath and abnormal vital signs with the tachycardia. Patient is feeling better after breathing treatments and is declining admission and wants to trial outpatient treatment. He is requesting a nebulizer so I will write a prescription for this. He is given a first dose of antibiotic here in the emergency department. He is to follow-up with his PCP. Coronavirus test is pending. Warning signs and symptoms for which to return to the ED are reviewed with him. He understands and is agreeable this plan. Will discharge home in stable condition. ED Disposition - Plan for ED Patient: Disposition: Home or Assisted Living Diagnosis: Community acquired pneumonia, Tachycardia, Cough Instructions: Pneumonia Prescriptions: Nebulizer Accessories [Adult Aerosol Mask] 1 ea [facility] DAILY PRN PRN #1 ea PRN Reason: Wheezing Prescription Printed Azithromycin 250 mg PO DAILY 4 Days #4 tab Prescription Printed Nebulizer and Compressor [Easy Neb Compressor Nebulizer] 1 ea [facility] DAILY PRN PRN #1 ea PRN Reason: Wheezing Prescription Printed Albuterol Aerosols [Ventolin Aerosols] 2.5 mg INHALATION Q4H PRN #25 vial Prescription Printed Referrals: Joseph Kathleen MD [Primary Care Provider] - 2 Days
[2020-02-13 16:21] LABS: Anion Gap 7 (5-15); BUN 12 mg/dL (7-18); Chloride 100 mmol/L (98-107); EST Glomerular Filtration Rate 90 mL/min (>60); Est Glom Filt Rate - Afr Amer 109 mL/min (>60); Estimated Creatinine Clearance 106.46 ml/min; Glucose 179 mg/dL (74-106); Potassium 3.7 mmol/L (3.5-5.1); Sodium Level 137 mmol/L (136-145)
--- NOTE | 2020-02-13 17:17 | ED.RN ---
Pt C/O dizziness with standing and walking. HR increased from 105 to 143 with walking. Spo2 decreased from 96 to 92%. Dr wylie.
[2020-02-13] MEDS: 0.9% Normal Saline 1,000 ML 999 ML IV (17:31)
== END 2020-02-13 20:11 | disposition home or self-care (01) ==
PROVIDERS: Emergency Provider Emergency Medicine; PCP Internal Medicine
DX: U07.1 COVID-19 (principal); J12.89 Other viral pneumonia; R00.0 Tachycardia, unspecified; J45.909 Unspecified asthma, uncomplicated; F17.200 Nicotine dependence, unspecified, uncomplicated
CPT/HCPCS: 71045; 80048; 84484; 85025; 87635; 93005; 94640; 96361; 96365; 96366; 99284; J7030; A4216; U0003

== ENCOUNTER → 2021-03-19 10:04 | Outpatient (CLI) | payer MEDICARE, MEDICAID, SELFPAY ==
--- NOTE | 2021-03-19 13:26 | NEURO ---
NCS and/or EMG Patient Report Ordering Doctor: Harsh Pal DATE OF SERVICE: 03/19/21 [place] presents for electrodiagnostic testing of the upper limbs. Reports intermittent numbness and tingling in both hands. Electrodiagnostic findings: Median motor nerve demonstrates normal distal latency, amplitude and conduction velocity bilaterally. Normal ulnar motor response bilaterally. Normal median ulnar F waves. Prolonged median sensory latency at the wrist bilaterally. Normal ulnar and radial sensory responses. On needle EMG, all muscles tested in the upper limbs showed no evidence of denervation with normal motor unit action potentials Electrodiagnostic assessment: This is an abnormal study in the upper limbs 1. Electrodiagnostic findings demonstrate bilateral median mononeuropathy. This is consistent with a mild bilateral carpal tunnel syndrome
== END ==
PROVIDERS: PCP Internal Medicine; Referring Provider Surgery; Visit Provider Surgery
DX: G56.03 Carpal tunnel syndrome, bilateral upper limbs (principal)
CPT/HCPCS: 95886; 95912

== ENCOUNTER 2021-08-17 13:40 | Emergency (ER) | payer MEDICARE, MEDICAID, SELFPAY ==
[2021-08-17 13:41] VITALS: BP 141/77; PULSE 121; RESP 20; TEMP 36.6; O2SAT 98; BMI 46.3
--- NOTE | 2021-08-17 13:45 | RAD_ITS ---
EXAM: XR RIGHT ANKLE COMPLETE, 3 OR MORE VIEWS CLINICAL INDICATION: trauma TECHNIQUE: Frontal, lateral and oblique views of the right ankle. This report was created using [employer] report generation technology. COMPARISON: June 07, 2013 FINDINGS: BONES/JOINTS: Unremarkable. No acute fracture. No subluxation. Normal alignment. Preservation of the joint space. No sclerotic or destructive changes observed. SOFT TISSUES: Unremarkable. No soft tissue swelling or gas. No radiopaque foreign body. RAD/Ankle min 3 Views IMPRESSION: No acute abnormality. Electronically Signed: Fernando Redman MD at 14:13 EDT ,
--- NOTE | 2021-08-17 13:51 | EX.ED.DYSGE1 ---
HPI History of Present Illness Chief Complaint: Lower Extremity Injury Detail of Chief Complaint: Rolled right ankle. Informant: patient Onset/Context/Timing Onset: Today and Hours Context: Sudden Onset Timing: Continuous Current Severity: Mild Maximum Severity: Mild Narrative Narrative: 36-year-old male was moving furniture in his house when he was on the step he rolled his right ankle fell complaining of right lateral ankle pain. He has had a history of sprained ankles never broke or need any surgery. He denies any right hip, right knee or foot pain. He denies any other injuries. He did not hit his head. He denies any neck or back pain. Prior similar symptoms: Yes Recent Illness/Hospitalization: No [facility] Medical History Allergies Anxiety Arthritis Asthma Bilateral carpal tunnel syndrome Chronic bronchitis Diabetes GERD (gastroesophageal reflux disease) Headache Heartburn High cholesterol Hypertension Restless legs Seizures Home Medications escitalopram oxalate 20 mg PO DAILY 02/24/16 [History Last Taken 07/01/17] metformin 1,000 mg PO BID 07/19/16 [History Last Taken 07/01/17] albuterol sulfate 1 - 2 puff INHALATION Q4H PRN PRN #1 inhaler 11/27/16 [Rx Last Taken 07/01/17] dapagliflozin 5 mg PO DAILY 12/03/16 [History Last Taken 07/01/17] gabapentin 300 mg PO QHS 01/30/17 [History Last Taken 07/01/17] liraglutide 0.8 mg SQ QHS 01/30/17 [History Last Taken 07/01/17] pravastatin 40 mg PO QHS 12/14/17 [History Last Taken Unknown] cyclobenzaprine 10 mg PO TID PRN PRN #15 tab 01/27/19 [Rx Last Taken Unknown] naproxen 500 mg PO BID PRN #20 tab 03/02/19 [Rx Last Taken Unknown] omeprazole 1 cap PO DAILY #14 capsule. 04/07/19 [Rx Last Taken Unknown] albuterol sulfate 2.5 mg INHALATION Q4H PRN #25 vial 02/13/20 [Rx Last Taken Unknown] nebulizer accessories #1 ea 02/13/20 [Rx Last Taken Unknown] nebulizer and compressor #1 ea 02/13/20 [Rx Last Taken Unknown] meloxicam 15 mg tablet 15 mg PO DAILY #30 tablet 07/29/20 [Rx Last Taken Unknown] bisoprolol fumarate 5 mg tablet 5 mg PO DAILY 12/26/20 [History Last Taken Unknown] fexofenadine 180 mg tablet 180 mg PO DAILY 12/26/20 [History Last Taken Unknown] lisinopril 2.5 mg tablet 2.5 mg PO DAILY 12/26/20 [History Last Taken Unknown] melatonin 5 mg tablet 5 mg PO HS PRN 12/26/20 [History Last Taken Unknown] metronidazole 1 % topical cream 1 applic TOPICAL DAILY 12/26/20 [History Last Taken Unknown] Allergy/AdvReac Type Severity Reaction Status Date / Time tramadol Allergy Chest Verified 08/17/21 13:43 tightness cephalexin monohydrate AdvReac Vomiting Verified 08/17/21 13:43 [From Keflex] formoterol fumarate AdvReac Vomiting Verified 08/17/21 13:43 [From Dulera] mometasone furoate AdvReac Vomiting Verified 08/17/21 13:43 [From Dulera] Family History Mother Diabetes Other Alcoholism Anxiety Arthritis Asthma Heart disease High cholesterol Hypertension Severe allergy Suicide attempt Surgical History History of placement of ear tubes S/P left knee arthroscopy Social History Smoking Status: Current every day smoker tobacco type: cigarettes counseling given: provider counseling and counseling >3 minutes alcohol intake: never substance use type: does not use additional social history: Does Take Aspirin as needed Does Take Ibuprofen as needed ROS ROS ED ROS Narrative Denies recent illness. Review of Systems ROS Unobtainable: Denies due to encephalopathy Constitutional Constitutional ED: Denies fever(s) Eyes Eyes: Denies change in vision ENT ENT ED: Denies ear pain Cardiovascular Cardiovascular: Denies chest pain or palpitations Respiratory/Chest Respiratory/Chest: Denies cough or dyspnea Gastrointestinal Gastrointestinal: Denies abdominal pain, diarrhea, nausea or vomiting Genitourinary Genitourinary ED: Denies dysuria Musculoskeletal Musculoskeletal: Denies back pain, myalgias or neck pain Integumentary Denies rash Neurologic Neurologic: Denies headache(s) Psychiatric Psychiatric: Denies depression Endocrine Endocrinology: Denies polyuria Allergic/Immunologic Allergic/Immunologic ED: Denies urticaria EXAM Physical Exam Narrative Exam Narrative: 36-year-old male vital signs stable afebrile. H EENT exam unremarkable atraumatic. C-spine nontender. Back and spine nontender. Lungs are clear. Heart regular rhythm no murmur. Rate about 110. Chest wall nontender. Abdomen soft nontender. Pelvic girdle intact. 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 They are nontender. Left lower extremity is nontender. Right ankle tenderness mild swelling to the right lateral malleolus. Dorsi plantarflexion intact. Normal DP pulse. Medial malleolus is nontender non-swollen. Estelle tendon is intact. He is able to wiggle his toes. He has normal touch sensation. No deformity or tenderness or swelling to the foot. The right hip and knee are nontender with normal range of motion. Const Vital Signs: 08/17/21 13:41 Temperature 97.9 F Temperature Source Temporal Pulse Rate 121 H Respiratory Rate 20 H Blood Pressure 141/77 H Blood Pressure Mean 98 Pulse Ox 98 Oxygen Delivery Method Room Air Positive well nourished, well developed and obese; Negative for cachectic, contractures or unkempt General Appearance ED: well developed and NAD; Negative for unkempt, cachectic, contractures, cyanotic, diaphoretic or pallor Nutritional Appearance: obese; Negative for cachectic HEENT Reports moist mucous membranes Negative for trauma or tenderness Eyes PERRL and EOMs intact bilaterally General Eye ED: Negative for pale conjunctiva or scleral icterus Neck no lymphadenopathy, supple and no JVD General: Negative for tenderness Chest Wall inspection of chest normal and palpation of chest normal Resp normal respiratory effort and clear to auscultation bilaterally Effort and Inspection: Negative for pain with movement Auscultation: Negative for rales, rhonchi or wheezes Cardio regular rhythm, S1 normal heart sound, S2 normal heart sound and no murmurs; Negative for regular rate Rate: tachycardic GI normal to inspection, nondistended, normoactive bowel sounds, non-tender, non-distended and no masses Inspection: Negative for abdominal distention Auscultation: normoactive bowel sounds Palpation: soft; Negative for tender, guarding or rebound tenderness present Back/Spine no CVA tenderness General Back: Negative for CVA tenderness Cervical Spine: Negative for cervical spine tenderness Thoracic Spine / Upper Back: Negative for thoracic spinal tenderness or paraspinal muscle tenderness Lumbar Spine / Lower Back: Negative for lumbar spinal tenderness Extremity normal to inspection Extremity Narrative: Except right lateral ankle lateral malleolus shows mild tenderness and swelling. No deformity. Dorsi plantarflexion intact. Normal DP pulse. Achilles tendon intact. Foot nontender nonswollen. Right knee nontender and no swelling. General Extremety ED: Negative for edema or tenderness General Extremity: Negative for edema Neuro oriented x3, CN's II-XII intact bilaterally and no sensory deficits noted Sensorium / Orientation: alert; Negative for orientation impaired, lethargic or stuporous Motor Exam: strength 5/5 throughout; Negative for general weakness Psych mental status grossly normal Appearance: Negative for unkempt Attitude: No agitated Mood & Affect: Negative for depressed or tearful Skin no rashes or lesions noted and no wounds General Skin Exam: Negative for jaundice or pallor MDM MDM MDM Narrative Medical decision making narrative: 36-year-old twisted his right ankle while moving. As tenderness of the right lateral malleolus and swelling. X-ray being obtained. Treated as an ankle sprain. Aircast. Ice and elevate. Motrin for pain and swelling. Radiography Diagnostic Testing: Right ankle x-ray, 3 views, interpreted by myself shows soft tissue swelling. No fracture. No dislocation. Discharge Plan Triage Chief Complaint: Lower Extremity Injury ED Provider: Wu Trotter Dx/Rx/DC Orders Clinical Impression: Right ankle sprain, History of diabetes mellitus, History of seizure Instructions: ED Ankle Sprain (Adult) Prescriptions: No Action meloxicam 15 mg tablet 15 mg PO DAILY Qty: 30 RF: 0 lisinopril 2.5 mg tablet 2.5 mg PO DAILY RF: 0 bisoprolol fumarate 5 mg tablet 5 mg PO DAILY RF: 0 fexofenadine [Margie Allergy] 180 mg tablet 180 mg PO DAILY RF: 0 melatonin 5 mg tablet 5 mg PO HS PRNRF: 0 metronidazole 1 % cream 1 applic topical DAILY RF: 0 escitalopram oxalate 20 MG tablet 20 mg PO DAILY RF: 0 metformin 500 MG tablet 1,000 mg PO BID RF: 0 albuterol sulfate 1 INHALER inhaler 1 - 2 puff INHALATION Q4H PRN PRN (Reason: Wheezing) Qty: 1 RF: 0 dapagliflozin 5 MG tablet 5 mg PO DAILY RF: 0 gabapentin 300 MG capsule 300 mg PO QHS RF: 0 liraglutide 0.6 MG/0.1 ML pen injector 0.8 mg SQ QHS RF: 0 pravastatin 40 MG tablet 40 mg PO QHS RF: 0 cyclobenzaprine 10 MG tablet 10 mg PO TID PRN PRN (Reason: Spasms) Qty: 15 RF: 0 naproxen 500 MG tablet 500 mg PO BID PRN Qty: 20 RF: 0 omeprazole 40 MG capsule,delayed release(DR/EC) 1 cap PO DAILY Qty: 14 RF: 0 (DME) nebulizer accessories 1 EACH misc 1 ea MC DAILY PRN Qty: 1 RF: 0 (DME) nebulizer and compressor 1 EACH device 1 ea MC DAILY PRN Qty: 1 RF: 0 albuterol sulfate 2.5 MG/3 ML solution for nebulization 2.5 mg INHALATION Q4H PRN Qty: 25 RF: 0 Primary Care Provider: Joseph Kathleen Referrals: Joseph Kathleen MD [Primary Care Provider] - 1 Week if not improving Activity Restrictions/Additional Instructions: Ice and elevate your right ankle to decrease pain and swelling. Slowly increase activity and weightbearing as tolerated. Motrin for pain and swelling and Tylenol for pain. Follow-up if not improving. Disposition Disposition: Home, Self Care
[2021-08-17] MEDS: Ibuprofen 600 MG Tablet PO (14:00)
== END 2021-08-17 14:32 | disposition home or self-care (01) ==
PROVIDERS: Emergency Provider Emergency Medicine; PCP Internal Medicine; Visit Provider Emergency Medicine
DX: S93.401A Sprain of unspecified ligament of right ankle, initial encounter (principal); E11.9 Type 2 diabetes mellitus without complications; X50.1XXA Overexertion from prolonged static or awkward postures, initial encounter; J45.909 Unspecified asthma, uncomplicated; K21.9 Gastro-esophageal reflux disease without esophagitis; E78.00 Pure hypercholesterolemia, unspecified; Z79.899 Other long term (current) drug therapy; Z79.84 Long term (current) use of oral hypoglycemic drugs; F41.9 Anxiety disorder, unspecified; Y93.E9 Activity, other interior property and clothing maintenance; Y99.9 Unspecified external cause status; Y92.009 Unspecified place in unspecified non-institutional (private) residence as the place of occurrence of the external cause
CPT/HCPCS: 73610; 99283

== ENCOUNTER 2021-09-30 15:46 | Emergency (ER) | payer MEDICARE, MEDICAID, SELFPAY ==
[2021-09-30 15:47] VITALS: BP 132/77; PULSE 98; RESP 14; TEMP 36.1; O2SAT 97; BMI 44.1
--- NOTE | 2021-09-30 15:55 | ED.VIS.LOWEX ---
HPI History of Present Illness HPI Narrative: Patient presents with left foot pain that began last night. Patient denies any trauma or injury. Patient states the pain began rather suddenly. Patient states pain is been constant. Patient describes the pain as sharp. Patient states pain is worse with any weightbearing. Patient states he took Tylenol at home with no improvement. Patient denies any paresthesias or weakness. Patient denies any fevers or chills. Patient denies any redness. Chief Complaint: Lower Extremity Injury Informant: patient Onset/Context/Timing Onset: Yesterday Context: Sudden Onset Timing: Continuous Quality of Pain: Sharp Location: Lateral aspect left foot Worsened by: Weightbearing Relieved by: Nothing Associated Symptoms Associated Symptoms: Negative for Parasthesia, Weakness and Loss of Funtion PFSH [facility] Medical History Allergies Anxiety Arthritis Asthma Bilateral carpal tunnel syndrome Chronic bronchitis Diabetes GERD (gastroesophageal reflux disease) Headache Heartburn High cholesterol Hypertension Restless legs Seizures Home Medications escitalopram oxalate 20 mg PO DAILY 02/24/16 [History Last Taken 07/01/17] albuterol sulfate 1 - 2 puff INHALATION Q4H PRN PRN #1 inhaler 11/27/16 [Rx Last Taken 07/01/17] dapagliflozin 5 mg PO DAILY 12/03/16 [History Last Taken 07/01/17] gabapentin 300 mg PO QHS 01/30/17 [History Last Taken 07/01/17] liraglutide [Victoza 2-Noble] 0.8 mg SQ QHS 01/30/17 [History Last Taken 07/01/17] pravastatin 40 mg PO QHS 12/14/17 [History Last Taken Unknown] naproxen 500 mg PO BID PRN #20 tab 03/02/19 [Rx Last Taken Unknown] omeprazole 1 cap PO DAILY #14 capsule. 04/07/19 [Rx Last Taken Unknown] albuterol sulfate 2.5 mg INHALATION Q4H PRN #25 vial 02/13/20 [Rx Last Taken Unknown] nebulizer accessories #1 ea 02/13/20 [Rx Last Taken Unknown] nebulizer and compressor #1 ea 02/13/20 [Rx Last Taken Unknown] meloxicam 15 mg tablet 15 mg PO DAILY #30 tablet 07/29/20 [Rx Last Taken Unknown] bisoprolol fumarate 5 mg tablet 5 mg PO DAILY 12/26/20 [History Last Taken Unknown] fexofenadine 180 mg tablet 180 mg PO DAILY 12/26/20 [History Last Taken Unknown] lisinopril 2.5 mg tablet 2.5 mg PO DAILY 12/26/20 [History Last Taken Unknown] melatonin 5 mg tablet 5 mg PO HS PRN 12/26/20 [History Last Taken Unknown] Allergy/AdvReac Type Severity Reaction Status Date / Time tramadol Allergy Chest Verified 09/30/21 15:47 tightness cephalexin monohydrate AdvReac Vomiting Verified 09/30/21 15:47 [From Keflex] formoterol fumarate AdvReac Vomiting Verified 09/30/21 15:47 [From Dulera] mometasone furoate AdvReac Vomiting Verified 09/30/21 15:47 [From Dulera] Family History Mother Diabetes Other Alcoholism Anxiety Arthritis Asthma Heart disease High cholesterol Hypertension Severe allergy Suicide attempt Surgical History History of placement of ear tubes S/P left knee arthroscopy Social History Smoking Status: Current every day smoker tobacco type: cigarettes counseling given: provider counseling and counseling >3 minutes alcohol intake: never substance use type: does not use additional social history: Does Take Aspirin as needed Does Take Ibuprofen as needed ROS ROS ED Constitutional Constitutional ED: Denies chills or fever(s) Eyes Eyes: Denies blurry vision or change in vision ENT ENT ED: Denies rhinorrhea or sore throat Cardiovascular Cardiovascular: Denies chest pain or palpitations Respiratory/Chest Respiratory/Chest: Denies cough or dyspnea Gastrointestinal Gastrointestinal: Denies nausea or vomiting Genitourinary Genitourinary ED: Denies dysuria or hematuria Musculoskeletal Musculoskeletal: Denies back pain or neck pain Integumentary Denies abscess or rash Neurologic Neurologic: Denies headache(s) or weakness Allergic/Immunologic Allergic/Immunologic ED: Denies mouth swelling or urticaria EXAM Physical Exam Const Vital Signs: 09/30/21 15:47 Temperature 97 F L Temperature Source Temporal Pulse Rate 98 Respiratory Rate 14 Blood Pressure 132/77 H Blood Pressure Mean 95 Pulse Ox 97 Oxygen Delivery Method Room Air Positive well nourished, well developed and obese General Appearance ED: well developed and NAD Nutritional Appearance: obese HEENT Reports moist mucous membranes Neck full ROM and supple Extremity Extremity Narrative: There is tenderness over the left fifth metatarsal. There is no edema or ecchymosis. There is no deformity noted. There is minimal tenderness over the left lateral malleolus. There is no tenderness over the proximal fibula. Pedal pulses are equal bilaterally. Sensation was intact to light touch in all digits. Capillary refill was less than 2 seconds in all digits. Range of motion was limited in all motions of the left foot secondary to pain. Neuro oriented x3, CN's II-XII intact bilaterally, moves all extremities and no sensory deficits noted Sensorium / Orientation: alert Motor Exam: strength 5/5 throughout Psych mental status grossly normal MDM MDM MDM Narrative Medical decision making narrative: X-rays of the left foot were obtained. There are 3 views. On my interpretation, there is no acute fracture. There is no dislocation. There is no soft tissue swelling. Radiologist also interpreted the x-rays and agrees. Patient was given a walking boot. Patient was given a note for work for today. Patient was instructed to ice and elevate the left foot. Patient was instructed to follow-up with his primary care physician in 5 to 7 days. Patient was instructed to take Tylenol or ibuprofen as needed for pain. Patient understood and was agreeable with the plan. All questions were answered. Radiography Diagnostic Testing: Clinical Impression(s) from Imaging Studies Foot X-Ray 09/30/21 15:58 IMPRESSION: Negative left foot x-rays. Electronically Signed: Chino Helms MD at 16:21 EDT Reading Location ID and State: [facility] / [place] , Service support , Discharge Plan Triage Chief Complaint: Lower Extremity Injury ED Provider: Misael Adams Dx/Rx/DC Orders Clinical Impression: Sprain of left foot, Hypertension Instructions: ED Foot Sprain Prescriptions: No Action meloxicam 15 mg tablet 15 mg PO DAILY Qty: 30 RF: 0 lisinopril 2.5 mg tablet 2.5 mg PO DAILY RF: 0 bisoprolol fumarate 5 mg tablet 5 mg PO DAILY RF: 0 fexofenadine [Margie Allergy] 180 mg tablet 180 mg PO DAILY RF: 0 melatonin 5 mg tablet 5 mg PO HS PRN (Reason: Sleep) RF: 0 escitalopram oxalate 20 MG tablet 20 mg PO DAILY RF: 0 albuterol sulfate 1 INHALER inhaler 1 - 2 puff INHALATION Q4H PRN PRN (Reason: Wheezing) Qty: 1 RF: 0 dapagliflozin 5 MG tablet 5 mg PO DAILY RF: 0 gabapentin 300 MG capsule 300 mg PO QHS RF: 0 Victoza 2-Noble 0.6 MG/0.1 ML pen injector 0.8 mg SQ QHS RF: 0 pravastatin 40 MG tablet 40 mg PO QHS RF: 0 naproxen 500 MG tablet 500 mg PO BID PRN Qty: 20 RF: 0 omeprazole 40 MG capsule,delayed release(DR/EC) 1 cap PO DAILY Qty: 14 RF: 0 (DME) nebulizer accessories 1 EACH misc 1 ea MC DAILY PRN Qty: 1 RF: 0 (DME) nebulizer and compressor 1 EACH device 1 ea MC DAILY PRN Qty: 1 RF: 0 albuterol sulfate 2.5 MG/3 ML solution for nebulization 2.5 mg INHALATION Q4H PRN Qty: 25 RF: 0 Stand Alone Forms: Work Status Form Primary Care Provider: Joseph Kathleen Referrals: Joseph Kathleen MD [Primary Care Provider] - 5-7 Days Disposition Disposition: Home, Self Care
--- NOTE | 2021-09-30 15:58 | RAD_ITS ---
EXAM: XR LEFT FOOT COMPLETE, 3 OR MORE VIEWS CLINICAL INDICATION: Injury/Pain Technologist Notes PAIN LITTLE TOE LATERALLY INTO FOOT. PAIN SINCE THIS MORNING, NO KNOWN INJURY PER PATIENT. TECHNIQUE: Frontal, lateral and oblique views of the left foot. This report was created using [employer] report generation technology. COMPARISON: None. FINDINGS: BONES/JOINTS: Unremarkable. No acute fracture. No subluxation. Normal alignment. Preservation of the joint space. No sclerotic or destructive changes observed. SOFT TISSUES: Unremarkable. No soft tissue swelling or gas. No radiopaque foreign body. RAD/Foot min 3 Views IMPRESSION: Negative left foot x-rays. Electronically Signed: Chino Helms MD at 16:21 EDT Reading Location ID and State: [facility] / [place] , Service support ,
[2021-09-30 17:24] VITALS: BP 125/76; PULSE 84; RESP 18
== END 2021-09-30 17:27 | disposition home or self-care (01) ==
PROVIDERS: Emergency Provider Emergency Medicine; PCP Internal Medicine; Visit Provider Emergency Medicine
DX: S93.602A Unspecified sprain of left foot, initial encounter (principal); Z68.41 Body mass index [BMI] 40.0-44.9, adult; G40.909 Epilepsy, unspecified, not intractable, without status epilepticus; E11.9 Type 2 diabetes mellitus without complications; Z79.4 Long term (current) use of insulin; X58.XXXA Exposure to other specified factors, initial encounter; I10 Essential (primary) hypertension; E78.00 Pure hypercholesterolemia, unspecified; K21.9 Gastro-esophageal reflux disease without esophagitis; E66.9 Obesity, unspecified; F41.9 Anxiety disorder, unspecified; F17.210 Nicotine dependence, cigarettes, uncomplicated; Z79.899 Other long term (current) drug therapy
CPT/HCPCS: 73630; 99283

== ENCOUNTER 2022-04-03 08:02 | Day surgery (SDC) | payer MEDICARE, MEDICAID, SELFPAY ==
--- NOTE | 2022-04-03 07:33 | PCM.HP.BLA ---
History and Physical Date of Admission: 04/03/22 HISTORY OF PRESENT ILLNESS 36 year old man presents with bilateral carpal tunnel syndrome, worse on the left.? He is left hand dominant.? 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 He states his carpal tunnel syndrome has not awakened him at night.? He has not used a wrist splint thus far.? Other reasons in this patient that may aggravate his neuropathy, namely diabetes mellitus and smoking.? He denies trauma to his bilateral hands and wrists. 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 He had a NCS EMG study on 03/19/21. It showed electrodiagnostic findings demonstrate bilateral median mononeuropathy.? This is consistent with a mild bilateral carpal tunnel syndrome. Patient has diabetes mellitus. His last HgbA1c was 7.4 in September,. He presents at this time for further evaluation and treatment. PAST MEDICAL HISTORY Anxiety Arthritis Asthma Bilateral carpal tunnel syndrome Chronic bronchitis Diabetes GERD (gastroesophageal reflux disease) Headache Heartburn High cholesterol Hypertension Restless legs Seizures PAST SURGICAL HISTORY History of placement of ear tubes S/P left knee arthroscopy ALLERGIES tramadol cephalexin monohydrate [From Keflex] formoterol fumarate [From Dulera] mometasone furoate [From Dulera] MEDICATIONS escitalopram oxalate metformin albuterol sulfate dapagliflozin gabapentin liraglutide pravastatin cyclobenzaprine naproxen omeprazole albuterol sulfate meloxicam bisoprolol fumarate fexofenadine lisinopril melatonin metronidazole 1 % topical cream FAMILY HISTORY Mother - Diabetes Other - Alcoholism, Anxiety, Arthritis, Asthma, Heart disease, High cholesterol, Hypertension, Suicide attempt SOCIAL HISTORY Smoking Status:? Current every day smoker alcohol intake:? never substance use type:? does not use additional social history:? Does Take Aspirin as needed REVIEW OF SYSTEMS General - Denies fever, fatigue, and weight loss. Eyes - Denies cataracts and glaucoma. ENT - Denies nasal congestion and sore throat.? Has chronic sinus problems. Endocrine - Denies excessive thirst and urination.? Has diabetes mellitus. Skin - Denies suspicious lesions and skin cancer. Musculoskeletal - Denies joint pain, joint stiffness, weakness of muscles and joints, and arthritis.? Has back pain.? Has bilateral carpal tunnel syndrome. Neuro - Has headaches. Cardiovascular - Denies chest pain, fatigue, and shortness of breath with exertion. Psych - Denies anxiety.? Has depression. Respiratory - Denies chronic cough and shortness of breath.? Patient is a smoker. Gastrointestinal - Denies nausea, vomiting, diarrhea, and constipation. Hematologic - Denies abnormal bruising and bleeding. Genitourinary - Denies hematuria and urinary frequency. PHYSICAL EXAMINATION General - Alert and Oriented. HEENT - PERRL. EOMI.? Throat is clear. Neck - Supple and nontender.? No cervical adenopathy. Lungs - Clear to auscultation. Heart - Regular rate and rhythm. Abdomen - Soft and nondistended. Extremities - FROM. No axillary adenopathy.? Radial pulses are palpable.? Fingers are warm with good capillary refill.? Patient is left hand dominant.? Negative Tinel's sign at the wrist and elbow bilaterally. Phalen's test is positive.? No thenar atrophy noted bilaterally.? Has decreased sensation to pinprick involving the thumb, index finger, and long finger bilaterally.? Patient states his symptomatology is worse on the left. Neuro - CN II-XII grossly intact. Psych - Normal mood and affect. ASSESSMENT 1.? Bilateral carpal tunnel syndrome. 2.? Diabetes mellitus with neuropathy. 3.? Smoker. PLAN Clinically, the patient has bilateral carpal tunnel syndrome, worse on the left. Will order NCS and EMG to evaluate. ? If positive, will discuss surgical options.? Other option includes a wrist splint.? Since he states his left side is more symptomatic, will proceed with the left carpal tunnel surgery.? After healing has occurred, will plan on doing the right carpal tunnel surgery. Patient has diabetes mellitus.? Will check a HgbA1c.? For elective cases, the HgbA1c needs to be less than 8. If the NCS is negative, then the paresthesias may be due to neuropathy from diabetes mellitus and/or the effects of smoking. If the NCS is positive, then will discuss surgery at that time.? Will have a bulky dressing around the wrist and palm.? The fingers and thumb are free to continue range of motion exercises to minimize stiffness.? I anticipate about 2 weeks off work for each surgery. Patient was informed of the risks and complications of the procedure including alternatives to surgery.? These were discussed with the patient personally.? Patient voices understanding and wishes to proceed. Some of the risks and complications were included in a form from the [employer]. Some of the risks and complications that were discussed included but were not inclusive of failure to diagnose including symptom relief, pain, infection, numbness, stiffness, loss of digit, RSD (CRPS), need for further surgery, contracture, and wound healing problems. Encouraged patient to stop smoking as it may have deleterious effects on wound healing. UPDATE Since the dictation was done this morning, 04/03/22, there has been no changes to his History and Physical for his elective surgery on 04/03/22.
[2022-04-03 08:45] VITALS: BP 137/74; PULSE 80; RESP 18; TEMP 36.8; O2SAT 97; BMI 43.6
[2022-04-03] MEDS: Lactated Ringers 1,000 ML 15 ML IV (08:52)
[2022-04-03 09:16] LABS: Bedside Glucose 109 mg/dL (74-106)
[2022-04-03 09:29] LABS: Hemoglobin A1c 6.7 % (3.8-5.6)
[2022-04-03] MEDS: Clindamycin 900 MG/50 ML BAG 75 MG IV (10:37)
[2022-04-03] MEDS: Lidocaine 2% /Epi 1:100 (20ml) 20 ML VIAL (11:01)
[2022-04-03] MEDS: Mupirocin Ointment 22gm Tube 1 APPLIC (11:49)
[2022-04-03 12:00] VITALS: BP 104/85; BP 137/74; PULSE 90; RESP 16; TEMP 36.2; O2SAT 95
[2022-04-03 12:05] VITALS: BP 137/74; BP 91/56; PULSE 83; RESP 16; O2SAT 96
--- NOTE | 2022-04-03 12:05 | PCM.OPRPT ---
Problems Associated Problem List Diagnoses (1) Mild carpal tunnel syndrome of left wrist: (2) Diabetes: (3) Smoker: Report of Operation Date of Procedure: 04/03/22 Pre-Operative Diagnosis: 1. Bilateral carpal tunnel syndrome. 2. Diabetes mellitus with neuropathy. 3. Smoker. Post-Operative Diagnosis: Same. Surgery/Procedure Performed:: Neuroplasty median nerve at carpal tunnel left wrist. Description of Surgical Findings:: 36 year old man presents with bilateral carpal tunnel syndrome, worse on the left.? He is left hand dominant.? 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 He states his carpal tunnel syndrome has not awakened him at night.? He has not used a wrist splint thus far.? Other reasons in this patient that may aggravate his neuropathy, namely diabetes mellitus and smoking.? He denies trauma to his bilateral hands and wrists. 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 He had a NCS EMG study on 03/19/21.? It showed electrodiagnostic findings demonstrate bilateral median mononeuropathy.? This is consistent with a mild bilateral carpal tunnel syndrome.? Patient has diabetes mellitus.? His last HgbA1c was 7.4 in September,. Another HgbA1c was drawn today before surgery. It was 6.7. For elective surgeries, the HgbA1c needs to be less than 8. He presents at this time for further evaluation and treatment. Patient was informed of the risks and complications of the procedure including alternatives to surgery. These were discussed with the patient personally. Patient voices understanding and wishes to proceed. Some of the risks and complications were included in a form from the [employer]. Some of the risks and complications that were discussed included but were not inclusive of failure to diagnose including symptom relief, pain, infection, numbness, stiffness, loss of digit, RSD (CRPS), need for further surgery, contracture, and wound healing problems. Encouraged patient to stop smoking as it may have deleterious effects on wound healing. Total tourniquet time - 57 minutes. Surgeon: Harsh Pal MD burnishing machine operator: None Type of Anesthesia: Block,Klemme Anesthesiologist: Gold Kwong MD and Tristen Salvador CRNA and DADA Campbell Specimen's removed: None. Drains: None. Estimated Blood Loss (mL): 2. Description of Procedure: Patient was taken to OR in supine position and was given IV sedation. A tourniquet was placed on the forearm and inflated to 250 mmHg as the Klemme Block was given IV.? The left hand and forearm were prepped and draped in the usual fashion. SCD's were placed for DVT prophylaxis. Perioperative antibiotics were given intravenously. Using loupe magnification, I then proceeded with neuroplasty of the median nerve at the carpal tunnel of the left wrist.? A curvilinear incision was made ulnar to the thenar eminence and at the level of the radial aspect of the ring finger down to the wrist crease.? The incision was then zigzagged onto the distal forearm. Xylocaine and epinephrine was infiltrated into the incision.? The incision was then made down into the subcutaneous tissue until the palmaris longus tendon was seen.? I then dissected ulnar to the palmaris longus tendon until the transverse carpal ligament was seen.? I used a 15 blade on the ulnar side of the palmaris longus and incised the transverse carpal ligament, which was very thickened in the distal direction.? I stopped once I felt no resistance and I saw some subcutaneous tissue distally.? I then extended my release more proximally to the flexor retinaculum until no more resistance was seen in the antebrachial fascia and I could see some subcutaneous tissue as well in the wound.? Palpation of the carpal tunnel did not reveal any space occupying lesions or masses.? The wound was then irrigated with saline.? During the release of the carpal tunnel, no aberrant nerve branches were seen.? The incision through the carpal ligament was done ulnar to the palmaris longus to minimize injury to the palmar sensory branch of the median nerve.? Also, I made curvilinear incision ulnar to the thenar eminence to minimize injury to the recurrent motor branch as well.? The wound was then closed primarily with 5-0 Monocryl interrupted sutures for deep dermis and subcutaneous tissue.? The skin was approximated using 5-0 nylon simple interrupted and vertical mattress interrupted sutures. ? Prior to wound closure, hemostasis was obtained using electrocautery after the tourniquet was released after 57 minutes. ? Antibiotic ointment was applied to the incision followed by Xeroform gauze, 4 x 4 gauze, Kerlix gauze as a bulky dressing followed by compression Dat wrap.? Patient tolerated the procedure well and was sent to PACU in satisfactory condition. Patient will be sent home on antibiotics and pain medication. ?He will keep his left hand elevated during the initial postoperative period. Patient will followup in a week for a wound check. Sutures will be removed in two weeks. I encouraged him to move his fingers, especially at the MP joints during the initial postoperative period. ?I instructed him not to flex his fingers and the wrist at the same time for the first few days after the surgery. When the sutures are removed, I may send him to occupational therapy for range of motion exercises and strengthening if there is some residual swelling and stiffness in his fingers of his left hand.? ? Grafts/Implants Used: None. Procedure Start Time: 11:01 Procedure Stop Time: 11:51 Complications None. Admit VTE Documentation VTE Present on Admission: No VTE Mechan Device Prophylaxis: SCD's VTE Pharm Prophylaxis ordered?: No Addendum Addendum: Surgery Charges CPT - 31463 ICD-10 - G56.02, E11.9, F17.200
[2022-04-03 12:10] VITALS: BP 114/78; BP 137/74; PULSE 86; RESP 16; O2SAT 95
[2022-04-03 12:15] VITALS: BP 116/79; BP 137/74; PULSE 89; RESP 16; TEMP 36.4; O2SAT 96
--- NOTE | 2022-04-03 12:22 | DCINST_ITS ---
Discharge Instructions Follow Up Care Test Results: Test results from this visit will be discussed in further detail at your follow- up appointment, if applicable. Discharge Plan Admission Primary Reason for Your Visit: neuroplasty median nerve at carpal tunnel left wrist. Attending Provider: Harsh Pal Primary Care Provider: Joseph Kathleen Discharge Orders/Prescriptions Prescriptions: New doxycycline hyclate 100 mg capsule 100 mg PO BID Qty: 10 0RF L.acidoph,saliva-B.bif-S.therm [Acidophilus Probiotic Blend] 175 mg capsule 1 cap PO DAILY Qty: 10 0RF oxycodone-acetaminophen [Percocet] 5-325 mg tablet 1 tab PO Q6H PRN (Reason: pain (scale score 7-10)) 7 Days Qty: 28 0RF Rx Instructions: 28 tabs (ry-) Continued lisinopril 2.5 mg tablet 2.5 mg PO QHS bisoprolol fumarate 5 mg tablet 5 mg PO QHS fexofenadine [Margie Allergy] 180 mg tablet 180 mg PO DAILY melatonin 5 mg tablet 5 mg PO HS PRN (Reason: Sleep) escitalopram oxalate 20 MG tablet 20 mg PO DAILY albuterol sulfate 1 INHALER inhaler 1 - 2 puff INHALATION Q4H PRN PRN (Reason: Wheezing) Qty: 1 0RF dapagliflozin 5 MG tablet 5 mg PO DAILY gabapentin 300 MG capsule 300 mg PO BID Victoza 2-Noble 0.6 MG/0.1 ML pen injector 0.8 mg SQ QHS pravastatin 40 MG tablet 40 mg PO QHS omeprazole 40 MG capsule,delayed release(DR/EC) 1 cap PO DAILY Qty: 14 0RF (DME) nebulizer accessories 1 EACH misc 1 ea MC DAILY PRN Qty: 1 0RF (DME) nebulizer and compressor 1 EACH device 1 ea MC DAILY PRN Qty: 1 0RF albuterol sulfate 2.5 MG/3 ML solution for nebulization 2.5 mg INHALATION Q4H PRN Qty: 25 0RF Rx Instructions: Use q4 hours and PRN for wheezing Referrals / Follow Up: Harsh Pal MD [Med Staff - Active Staff] - (followup one week.) Joseph Kathleen MD [Primary Care Provider] - Disposition Disposition (needs filled in before D/C Order can be placed): Home, Self Care
[2022-04-03 13:24] VITALS: BP 116/74; BP 137/74; PULSE 91; RESP 16; TEMP 36.7; O2SAT 97
== END 2022-04-03 13:31 | disposition home or self-care (01) ==
LOC: SDC 08:05 → AC 08:06
PROVIDERS: PCP Internal Medicine; Referring Provider Surgery; Visit Provider Surgery
PROC: (CPT 64721; principal; 2022-04-03 09:45)
DX: G56.03 Carpal tunnel syndrome, bilateral upper limbs (principal); J42 Unspecified chronic bronchitis; E11.40 Type 2 diabetes mellitus with diabetic neuropathy, unspecified; E78.00 Pure hypercholesterolemia, unspecified; S59.919A Unspecified injury of unspecified forearm, initial encounter; Z79.84 Long term (current) use of oral hypoglycemic drugs; I10 Essential (primary) hypertension; F17.200 Nicotine dependence, unspecified, uncomplicated
CPT/HCPCS: 64721; 01810; 82962; 83036; J7120; J2405

== ENCOUNTER 2022-05-21 05:40 | Emergency (ER) | payer MEDICARE, MEDICAID, SELFPAY ==
[2022-05-21 05:41] VITALS: BP 134/77; PULSE 84; RESP 20; TEMP 36.1; O2SAT 97; BMI 43.9
--- NOTE | 2022-05-21 05:46 | EDS_ITS ---
HPI History of Present Illness Chief Complaint: Allergic Reaction Detail of Chief Complaint: Allergic reaction to Januvia Informant: patient and parent Onset/Context/Timing Onset: Days Context: Sudden Onset Timing: Continuous Quality: Swelling of lips and difficulty drinking liquids Location: Upper and lower lips Current Severity: Moderate Maximum Severity: Moderate Worsened by: Diabetic medication, Januvia Relieved by: Nothing Associated Symptoms Associated Symptoms: No other symptoms Narrative Narrative: Patient is a 36-year-old male with type 2 diabetes. He was seen by his primary care physician and placed on prednisone. He and his mother states his swelling has not gotten better. His swelling may have gotten worse. He is having diff iculty drinking fluids. He denies drooling. He reports slight change in voice. He denies shortness of breath. He denies rash or itching. He denies shortness of breath or wheezing. He denies orthostatic symptoms. He denies nausea, vomiting or diarrhea. He has not checked his blood sugar recently. He has not taken any Januvia since Wednesday. Prior similar symptoms: Yes Recent Illness/Hospitalization: Yes PFSH PFSH Medical History Alcohol use Allergies Anxiety Arthritis Arthritis Asthma Back pain Bilateral carpal tunnel syndrome Cardiology follow-up encounter Chronic bronchitis Diabetes Diabetes Dietary restriction Gastric reflux GERD (gastroesophageal reflux disease) Headache High cholesterol History of stress test Hypertension Hypertension Injury of head and neck Loss of hearing Mild carpal tunnel syndrome of left wrist Seizures Smoker Home Medications escitalopram oxalate 20 mg tablet 20 mg PO DAILY 02/24/16 [History Last Taken 07/01/17] albuterol sulfate 90 mcg/actuation aerosol inhaler 1 - 2 puff inhalation Q4H PRN PRN Wheezing ##1 11/27/16 [Rx Last Taken 07/01/17] dapagliflozin 5 mg tablet 5 mg PO DAILY 12/03/16 [History Last Taken 07/01/17] gabapentin 300 mg capsule 300 mg PO BID 01/30/17 [History Last Taken 04/03/22] liraglutide 0.6 mg/0.1 mL (18 mg/3 mL) subcutaneous pen injector (Victoza 2-Noble) 0.8 mg SQ QHS 01/30/17 [History Last Taken 07/01/17] pravastatin 40 mg tablet 40 mg PO QHS 12/14/17 [History Last Taken Unknown] omeprazole 40 mg capsule,delayed release 1 cap PO DAILY ##14 04/07/19 [Rx Last Taken 04/03/22] albuterol sulfate 2.5 mg/3 mL (0.083 %) solution for nebulization 2.5 mg (3 mL) inhalation Q4H PRN #25 vials 02/13/20 [Rx Last Taken Unknown] nebulizer accessories #1 ea 02/13/20 [Rx Last Taken Unknown] nebulizer and compressor #1 ea 02/13/20 [Rx Last Taken Unknown] bisoprolol fumarate 5 mg tablet 5 mg PO QHS 12/26/20 [History Last Taken Unknown] fexofenadine 180 mg tablet (Margie Allergy) 180 mg PO DAILY 12/26/20 [History Last Taken Unknown] lisinopril 2.5 mg tablet 2.5 mg PO QHS 12/26/20 [History Last Taken Unknown] melatonin 5 mg tablet 5 mg PO HS PRN Sleep 12/26/20 [History Last Taken Unknown] Allergy/AdvReac Type Severity Reaction Status Date / Time empagliflozin Allergy Angioedema Verified 05/21/22 06:24 [From Jardiance] tramadol Allergy Chest Verified 05/21/22 06:24 tightness cephalexin monohydrate AdvReac Vomiting Verified 05/21/22 06:24 [From Keflex] formoterol fumarate AdvReac Vomiting Verified 05/21/22 06:24 [From Dulera] mometasone furoate AdvReac Vomiting Verified 05/21/22 06:24 [From Dulera] Family History Mother Diabetes Other Alcoholism Anxiety Arthritis Asthma Heart disease High cholesterol Hypertension Severe allergy Suicide attempt Surgical History History of carpal tunnel surgery of left wrist History of placement of ear tubes Hx of left knee surgery S/P left knee arthroscopy Social History Smoking Status: Current every day smoker tobacco type: cigarettes counseling given: provider counseling and counseling >3 minutes alcohol intake: never substance use type: does not use additional social history: Does Take Aspirin as needed Does Take Ibuprofen as needed ROS ROS ED Constitutional Constitutional ED: Denies chills, fever(s), subjective, sweats or weight loss Eyes Eyes: Denies change in vision or diplopia ENT ENT ED: Denies ear pain, rhinorrhea or sore throat Cardiovascular Cardiovascular: Denies chest pain or palpitations Respiratory/Chest Respiratory/Chest: Denies cough, dyspnea or dyspnea on exertion Gastrointestinal Gastrointestinal: Denies abdominal pain, nausea or vomiting Genitourinary Genitourinary ED: Denies dysuria, hematuria or urinary frequency Musculoskeletal Musculoskeletal: Denies arthralgias, back pain, myalgias or neck pain Integumentary Denies rash Neurologic Neurologic: Denies paresthesias or weakness Hematologic/Lymphatic Hematologic/Lymphatic: Reports systems reviewed and no addt'l complaints, except as documented Allergic/Immunologic Allergic/Immunologic ED: Reports mouth swelling; Denies tongue swelling or urticaria EXAM Physical Exam Const Vital Signs: 05/21/22 05:41 Temperature 96.9 F L Temperature Source Temporal Pulse Rate 84 Respiratory Rate 20 H Blood Pressure 134/77 H Blood Pressure Mean 96 Pulse Ox 97 Oxygen Delivery Method Room Air Positive well nourished, well developed, obese and unkempt General Appearance ED: unkempt, well developed and NAD; Negative for cyanotic, diaphoretic or pallor Nutritional Appearance: obese HEENT Reports moist mucous membranes HEENT Narrative: Head is atraumatic normocephalic. Ears normal. Nares patent there is slight swelling of the the entrance to the right and left vestibule. There is swelling of the upper and lower lip. There is no swelling of the tongue or uvula. Uvula is midline. Eyes PERRL and EOMs intact bilaterally General Eye ED: Negative for pale conjunctiva or scleral icterus Neck no lymphadenopathy, supple and no JVD Neck Narrative: Trachea is midline. There is no ins or expiratory stridor. Chest Wall inspection of chest normal and palpation of chest normal Resp normal respiratory effort and clear to auscultation bilaterally Cardio regular rate, regular rhythm, S1 normal heart sound, S2 normal heart sound and no murmurs GI normal to inspection, nondistended, normoactive bowel sounds, non-tender, non- distended and no masses; Negative for hepatosplenomegaly Back/Spine no CVA tenderness Cervical Spine: Negative for cervical spine tenderness Thoracic Spine / Upper Back: Negative for thoracic spinal tenderness Extremity normal to inspection General Extremety ED: Negative for edema or tenderness General Extremity: Negative for edema Neuro oriented x3, CN's II-XII intact bilaterally and no sensory deficits noted Sensorium / Orientation: alert Psych Psych Narrative: Affect is flat. Appearance: unkempt Skin no rashes or lesions noted, no wounds and skin turgor normal General Skin Exam: Negative for jaundice or pallor MDM MDM MDM Narrative Medical decision making narrative: Patient has angioedema due to Januvia. We will treat with H1 and H2 princess and systemic intravenous steroid. Will look up mechanism determine if anything else is required to treat his angioedema since it has not improved since onset, May 19. Review of prior records indicates patient's had surgery for bilateral carpal tunnel syndrome. He has seen pain management. There is no prior ER or office visit for angioedema or allergic reaction. Patient was placed on the monitor and pulse ox for monitoring. Since there is little information regarding angioedema due to Januvia Poison control was contacted to determine if mechanism is known and if there is any specific treatment. The intake person for poison control states there is no information regarding the medicine. She is contacting the home health care respiratory therapist to ask if he or she is aware of any treatment and half-life etc. Half-life is 12 to 15 hours. There is no specific antidote. There has been randomized trials with use of antidote for familial angioedema and TXA. Since this is not life-threatening recommendations per home health care respiratory therapist is to hold. Based on information H1, H2 princess and prednisone has no beneficial effect. In light of patient being diabetic prednisone may cause hyperglycemia. Recommendation per Dr. Nevarez the home health care respiratory therapist at poison control is observation. If the swelling does not worsen may safely discharged to home. Patient was reassessed at 0700. Swelling is slightly less. Therefore, will discharge to home Lab Data Attestation: I reviewed the patient's lab results. Lab results narrative: CBC was obtained to assess for eosinophilia. Basic metabolic panel was obtained to assess glucose, CO2 anion gap since patient prednisone and blood sugars may be higher than normal because he is on prednisone. CBC is unremarkable. Basic metabolic panel is remarkable for a glucose of 369 with a normal CO2 gap. Labs: Laboratory Results - last 24 hr 05/21/22 05/21/22 05/21/22 05:35 05:35 05:54 WBC 8.7 RBC 4.71 Hgb 14.1 Hct 40.3 MCV 85.6 MCH 29.9 MCHC 35.0 RDW Std Deviation 38.6 RDW Coeff of Shashi 12.5 Plt Count 195 MPV 11.9 Immature Gran % (Auto) 0.500 Neut % (Auto) 60.1 Lymph % (Auto) 30.3 Band[place] % (Auto) 8.0 Eos % (Auto) 0.9 Baso % (Auto) 0.2 Absolute Neuts (auto) 5.2 Absolute Lymphs (auto) 2.64 Nucleated RBC % 0 Sodium 136 Potassium 3.8 Chloride 103 Carbon Dioxide 24.0 Anion Gap 9 BUN 14 Creatinine 0.98 Estim Creat Clear Calc 103.20 Est GFR (MDRD) Af Amer 110 Est GFR (MDRD) Non-Af 91 BUN/Creatinine Ratio 14.2 Glucose 369 H Calcium 8.6 POC Glucose 376 H Discharge Plan Triage Chief Complaint: Allergic Reaction ED Provider: Joey Vigil Dx/Rx/DC Orders Clinical Impression: Angioedema of lips, Hypertension, High cholesterol, GERD (gastroesophageal reflux disease), Adverse effect of drug therapy, Type 2 diabetes mellitus with hyperglycemia, with long-term current use of insulin Instructions: ED Angioedema Prescriptions: No Action lisinopril 2.5 mg tablet 2.5 mg PO QHS bisoprolol fumarate 5 mg tablet 5 mg PO QHS fexofenadine [Margie Allergy] 180 mg tablet 180 mg PO DAILY melatonin 5 mg tablet 5 mg PO HS PRN (Reason: Sleep) escitalopram oxalate 20 MG tablet 20 mg PO DAILY albuterol sulfate 1 INHALER inhaler 1 - 2 puff INHALATION Q4H PRN PRN (Reason: Wheezing) Qty: 1 0RF dapagliflozin 5 MG tablet 5 mg PO DAILY gabapentin 300 MG capsule 300 mg PO BID Victoza 2-Noble 0.6 MG/0.1 ML pen injector 0.8 mg SQ QHS pravastatin 40 MG tablet 40 mg PO QHS omeprazole 40 MG capsule,delayed release(DR/EC) 1 cap PO DAILY Qty: 14 0RF (DME) nebulizer accessories 1 EACH misc 1 ea miscellaneous DAILY PRN Qty: 1 0RF (DME) nebulizer and compressor 1 EACH device 1 ea miscellaneous DAILY PRN Qty: 1 0RF albuterol sulfate 2.5 MG/3 ML solution for nebulization 2.5 mg INHALATION Q4H PRN Qty: 25 0RF Rx Instructions: Use q4 hours and PRN for wheezing Primary Care Provider: Joseph Kathleen Referrals: Joseph Kathleen MD [Primary Care Provider] - As Needed
[2022-05-21] MEDS: DiphenhydrAMINE 50 MG/ML Syringe 25 MG IV (05:56)
[2022-05-21] MEDS: Famotidine 200 MG/20 ML MDV 20 MG in 0.9% Normal Saline (Pres. free 8 ML 300 MG IV (05:57)
[2022-05-21] MEDS: MethylPREDNISolone 125 MG/2 ML Vial IV (05:57)
[2022-05-21 06:04] LABS: Absolute Lymphocyte Count 2.64 X10^3/uL (0.83-4.51); Absolute Neutrophil Count 5.2 X10^3/uL (2.0-7.7); Basophil# 0.02 X10^3/uL; Basophil% 0.2 % (0-1); Eosinophil# 0.08 X10^3/uL; Eosinophils% 0.9 % (0-5); Hematocrit 40.3 % (40-54); Hemoglobin 14.1 g/dL (13.0-16.5); Lymphocyte # 2.64 X10^3/ul (0.83-4.51); Lymphocyte % 30.3 % (19-41); Mean Corpuscular Hgb 29.9 pg (27.0-32.0); Mean Corpuscular Volume 85.6 fL (80-94); Mean Platelet Vol. 11.9 fl (6.2-12.0); NRBC Flagged by Analyzer 0 % (0-5); Neutrophil # 5.23 X10^3/uL (2.7-7.7); Neutrophil % 60.1 % (47-70); Platelet Count 195 K/mm3 (150-450); RBC Distribution Width CV 12.5 % (11.6-14.6); RBC Distribution Width SD 38.6 fl (35.1-43.9); Red Blood Count 4.71 M/mm3 (4.6-6.2); White Blood Count 8.7 K/mm3 (4.4-11.0)
[2022-05-21 06:20] LABS: Bedside Glucose 376 mg/dL (74-106)
[2022-05-21 06:24] LABS: Anion Gap 9 (5-15); BUN 14 mg/dL (7-18); BUN/Creat Ratio 14.2 RATIO (10-20); Calcium,Total 8.6 mg/dL (8.5-10.1); Chloride 103 mmol/L (98-107); Creatinine, Serum 0.98 mg/dL (0.70-1.30); EST Glomerular Filtration Rate 91 mL/min (>60); Est Glom Filt Rate - Afr Amer 110 mL/min (>60); Glucose 369 mg/dL (74-106); Potassium 3.8 mmol/L (3.5-5.1); Sodium Level 136 mmol/L (136-145)
[2022-05-21 07:09] VITALS: BP 141/75; PULSE 61; RESP 15; O2SAT 98
== END 2022-05-21 07:10 | disposition home or self-care (01) ==
PROVIDERS: Emergency Provider Emergency Medicine; PCP Internal Medicine; Visit Provider Emergency Medicine
DX: T78.3XXA Angioneurotic edema, initial encounter (principal); E11.65 Type 2 diabetes mellitus with hyperglycemia; Z79.4 Long term (current) use of insulin; T50.905A Adverse effect of unspecified drugs, medicaments and biological substances, initial encounter; K21.9 Gastro-esophageal reflux disease without esophagitis; I10 Essential (primary) hypertension; E78.00 Pure hypercholesterolemia, unspecified; F17.210 Nicotine dependence, cigarettes, uncomplicated; E66.9 Obesity, unspecified
CPT/HCPCS: 80048; 82962; 85025; 96374; 96375; 99282; A4216; J3490

== ENCOUNTER 2022-11-27 07:45 | Emergency (ER) | payer OTHER, MEDICARE, MEDICAID, SELFPAY ==
[2022-11-27 07:46] VITALS: BP 133/74; PULSE 70; RESP 16; TEMP 35.5; O2SAT 99
[2022-11-27 07:50] VITALS: BMI 40.4
--- NOTE | 2022-11-27 07:58 | EX.ED.GENINJ ---
HPI History of Present Illness Chief Complaint: Laceration Informant: patient Narrative Narrative: Patient received a left serration on the volar surface of his right nondominant hand while at work. He cut this on a piece of metal. No numbness tingling or weakness. There is a spot of blood on the Band-Aid. This happened shortly before arrival. He is not on any blood thinners. Nothing really makes it better or worse. PFSH PFSH Medical History Alcohol use Allergies Anxiety Arthritis Arthritis Asthma Back pain Bilateral carpal tunnel syndrome Cardiology follow-up encounter Chronic bronchitis Diabetes Diabetes Dietary restriction Gastric reflux GERD (gastroesophageal reflux disease) Headache High cholesterol History of stress test Hypertension Hypertension Injury of head and neck Loss of hearing Mild carpal tunnel syndrome of left wrist Seizures Smoker Home Medications escitalopram oxalate 20 mg tablet 20 mg PO DAILY 02/24/16 [History Last Taken 07/01/17] albuterol sulfate 90 mcg/actuation aerosol inhaler 1 - 2 puff inhalation Q4H PRN PRN Wheezing ##1 11/27/16 [Rx Last Taken 07/01/17] dapagliflozin propanediol 5 mg tablet 5 mg PO DAILY 12/03/16 [History Last Taken 07/01/17] gabapentin 300 mg capsule 300 mg PO BID 01/30/17 [History Last Taken 04/03/22] liraglutide 0.6 mg/0.1 mL (18 mg/3 mL) subcutaneous pen injector (Victoza 2-Noble) 0.8 mg SQ QHS 01/30/17 [History Last Taken 07/01/17] pravastatin 40 mg tablet 40 mg PO QHS 12/14/17 [History Last Taken Unknown] omeprazole 40 mg capsule,delayed release 1 cap PO DAILY ##14 04/07/19 [Rx Last Taken 04/03/22] albuterol sulfate 2.5 mg/3 mL (0.083 %) solution for nebulization 2.5 mg (3 mL) inhalation Q4H PRN #25 vials 02/13/20 [Rx Last Taken Unknown] nebulizer accessories #1 ea 02/13/20 [Rx Last Taken Unknown] nebulizer and compressor #1 ea 02/13/20 [Rx Last Taken Unknown] bisoprolol fumarate 5 mg tablet 5 mg PO QHS 12/26/20 [History Last Taken Unknown] fexofenadine 180 mg tablet (Margie Allergy) 180 mg PO DAILY 12/26/20 [History Last Taken Unknown] lisinopril 2.5 mg tablet 2.5 mg PO QHS 12/26/20 [History Last Taken Unknown] melatonin 5 mg tablet 5 mg PO HS PRN Sleep 12/26/20 [History Last Taken Unknown] Allergy/AdvReac Type Severity Reaction Status Date / Time empagliflozin Allergy Angioedema Verified 11/27/22 07:49 [From Jardiance] tramadol Allergy Chest Verified 11/27/22 07:49 tightness cephalexin monohydrate AdvReac Vomiting Verified 11/27/22 07:49 [From Keflex] formoterol fumarate AdvReac Vomiting Verified 11/27/22 07:49 [From Dulera] mometasone furoate AdvReac Vomiting Verified 11/27/22 07:49 [From Dulera] Family History Mother Diabetes Other Alcoholism Anxiety Arthritis Asthma Heart disease High cholesterol Hypertension Severe allergy Suicide attempt Surgical History History of carpal tunnel surgery of left wrist History of placement of ear tubes Hx of left knee surgery S/P left knee arthroscopy Social History Smoking Status: Current every day smoker tobacco type: cigarettes counseling given: provider counseling and counseling >3 minutes alcohol intake: never substance use type: does not use additional social history: Does Take Aspirin as needed Does Take Ibuprofen as needed ROS ROS ED Constitutional Constitutional ED: Denies chills or fever(s) Cardiovascular Cardiovascular: Denies racing heartbeat Gastrointestinal Gastrointestinal: Denies nausea or vomiting Musculoskeletal Musculoskeletal: Reports other Details: Injury as in history of present illness Integumentary Reports other Details: Injury as in history of present illness Neurologic Neurologic: Denies paresthesias or weakness Hematologic/Lymphatic Hematologic/Lymphatic: Denies easy bleeding or easy bruising EXAM Physical Exam Narrative Exam Narrative: Patient is in bed comfortable in no acute distress filling out paperwork at this time. HEENT shows no trauma Cardiorespiratory shows easy unlabored breathing normal pulse and his saturations are normal at 99% on room air showing no hypoxia. Extremities show no deformities please see skin exam below regarding right index finger. Range of motion of the finger both superficial and profundus flexors are normal. Extensor is normal. Capillary refill is normal. Skin: There is a 1.5 cm laceration across the volar surface of his right index finger overlying the middle phalanx. But even pulling very firmly on this I can barely get the epidermis to open and just the center. It will not even open a millimeter. And this is with quite a bit of pulling. Neurologic: Sensation is intact distally. Const Vital Signs: 11/27/22 07:46 Temperature 96 F L Temperature Source Temporal Pulse Rate 70 Respiratory Rate 16 Blood Pressure 133/74 H Blood Pressure Mean 93 Pulse Ox 99 Oxygen Delivery Method Room Air MDM MDM MDM Narrative Medical decision making narrative: At this point, I do not think this needs suturing. Since his last tetanus was about 7 years ago we will update this. We will scrub and clean this laceration. It certainly possible that it may open up further after he gets wet. But at this point suturing is not going to give any increased benefit. I really cannot get this wound open. There is a tiny section in the middle may be 2 to 3 mm long where I can barely get the epidermis to separate at all. We soaked and scrubbed the hand. I cannot get this laceration open at all. Although the edges of the laceration are 1.5 cm long, there is maybe 2 cm in the middle where the epidermis barely is broken. There is no benefit to suturing. Even with full range of motion there is no opening of this laceration. Even when I pulled firmly on both sides it will not open. Discharge Plan Triage Chief Complaint: Laceration ED Provider: Kelby Lawson Dx/Rx/DC Orders Clinical Impression: Superficial laceration of right hand Instructions: ED Laceration Small or ... Prescriptions: No Action lisinopril 2.5 mg tablet 2.5 mg PO QHS bisoprolol fumarate 5 mg tablet 5 mg PO QHS fexofenadine [Margie Allergy] 180 mg tablet 180 mg PO DAILY melatonin 5 mg tablet 5 mg PO HS PRN (Reason: Sleep) escitalopram oxalate 20 MG tablet 20 mg PO DAILY albuterol sulfate 1 INHALER inhaler 1 - 2 puff INHALATION Q4H PRN PRN (Reason: Wheezing) Qty: 1 0RF dapagliflozin propanediol 5 MG tablet 5 mg PO DAILY gabapentin 300 MG capsule 300 mg PO BID Victoza 2-Noble 0.6 MG/0.1 ML pen injector 0.8 mg SQ QHS pravastatin 40 MG tablet 40 mg PO QHS omeprazole 40 MG capsule,delayed release(DR/EC) 1 cap PO DAILY Qty: 14 0RF (DME) nebulizer accessories 1 EACH misc 1 ea miscellaneous DAILY PRN Qty: 1 0RF (DME) nebulizer and compressor 1 EACH device 1 ea miscellaneous DAILY PRN Qty: 1 0RF albuterol sulfate 2.5 MG/3 ML solution for nebulization 2.5 mg INHALATION Q4H PRN Qty: 25 0RF Rx Instructions: Use q4 hours and PRN for wheezing Primary Care Provider: Gianni Lindquist Referrals: Joseph Kathleen MD [Med Staff - [employer]] - As Needed Disposition Disposition: Home, Self Care
[2022-11-27] MEDS: Diphth,Pertuss(Acell),Tet Vac 0.5 ML Vial IM (08:02)
--- NOTE | 2022-11-27 08:24 | ED.RN ---
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 He also stated they would be going to [facility] for drug alcohol testing
== END 2022-11-27 08:25 | disposition home or self-care (01) ==
LOC: ED 08:04
PROVIDERS: Emergency Provider Emergency Medicine; PCP Family Medicine; Visit Provider Emergency Medicine
DX: S61.210A Laceration without foreign body of right index finger without damage to nail, initial encounter (principal); E11.9 Type 2 diabetes mellitus without complications; J45.909 Unspecified asthma, uncomplicated; E78.00 Pure hypercholesterolemia, unspecified; I10 Essential (primary) hypertension; F17.210 Nicotine dependence, cigarettes, uncomplicated; Z23 Encounter for immunization; W26.8XXA Contact with other sharp object(s), not elsewhere classified, initial encounter; Y99.0 Civilian activity done for income or pay
CPT/HCPCS: 90471; 99282

== ENCOUNTER 2023-01-31 15:47 | Emergency (ER) | payer MEDICARE, MEDICAID, SELFPAY ==
[2023-01-31 15:48] VITALS: BP 123/63; PULSE 116; RESP 19; TEMP 37.2; O2SAT 98; BMI 40.2
--- NOTE | 2023-01-31 16:02 | ED.VIS.DENTA ---
HPI History of Present Illness Chief Complaint: Dental Informant: patient Narrative Narrative: Awoke with dental pain this morning and swelling in the right jaw. No fevers chills systemic symptoms. He is a diabetic. The affected tooth is a right mandibular canine that has been decayed for a long time. He denies having any bleeding. PFSH PFSH Medical History Alcohol use Allergies Anxiety Arthritis Arthritis Asthma Back pain Bilateral carpal tunnel syndrome Cardiology follow-up encounter Chronic bronchitis Diabetes Diabetes Dietary restriction Gastric reflux GERD (gastroesophageal reflux disease) Headache High cholesterol History of stress test Hypertension Hypertension Injury of head and neck Loss of hearing Mild carpal tunnel syndrome of left wrist Seizures Smoker Home Medications escitalopram oxalate 20 mg tablet 20 mg PO DAILY 02/24/16 [History Last Taken 07/01/17] albuterol sulfate 90 mcg/actuation aerosol inhaler 1 - 2 puff inhalation Q4H PRN PRN Wheezing ##1 11/27/16 [Rx Last Taken 07/01/17] dapagliflozin propanediol 5 mg tablet 5 mg PO DAILY 12/03/16 [History Last Taken 07/01/17] gabapentin 300 mg capsule 300 mg PO BID 01/30/17 [History Last Taken 04/03/22] liraglutide 0.6 mg/0.1 mL (18 mg/3 mL) subcutaneous pen injector (Victoza 2-Noble) 0.8 mg SQ QHS 01/30/17 [History Last Taken 07/01/17] pravastatin 40 mg tablet 40 mg PO QHS 12/14/17 [History Last Taken Unknown] omeprazole 40 mg capsule,delayed release 1 cap PO DAILY ##14 04/07/19 [Rx Last Taken 04/03/22] albuterol sulfate 2.5 mg/3 mL (0.083 %) solution for nebulization 2.5 mg (3 mL) inhalation Q4H PRN #25 vials 02/13/20 [Rx Last Taken Unknown] nebulizer accessories #1 ea 02/13/20 [Rx Last Taken Unknown] nebulizer and compressor #1 ea 02/13/20 [Rx Last Taken Unknown] bisoprolol fumarate 5 mg tablet 5 mg PO QHS 12/26/20 [History Last Taken Unknown] fexofenadine 180 mg tablet (Margie Allergy) 180 mg PO DAILY 12/26/20 [History Last Taken Unknown] lisinopril 2.5 mg tablet 2.5 mg PO QHS 12/26/20 [History Last Taken Unknown] melatonin 5 mg tablet 5 mg PO HS PRN Sleep 12/26/20 [History Last Taken Unknown] clindamycin HCl 150 mg capsule 300 mg (2 x 150 mg) PO 4X/DAY #80 CAPSULES 01/31/23 [Rx Last Taken Unknown] hydrocodone-acetaminophen 5-325mg 5mg-325mg 1 tab PO Q4H PRN PRN Pain 2 days #10 TABLETS 01/31/23 [Rx Last Taken Unknown] Allergy/AdvReac Type Severity Reaction Status Date / Time empagliflozin Allergy Angioedema Verified 01/31/23 15:48 [From Jardiance] tramadol Allergy Chest Verified 01/31/23 15:48 tightness cephalexin monohydrate AdvReac Vomiting Verified 01/31/23 15:48 [From Keflex] formoterol fumarate AdvReac Vomiting Verified 01/31/23 15:48 [From Dulera] mometasone furoate AdvReac Vomiting Verified 01/31/23 15:48 [From Dulera] Family History Mother Diabetes Other Alcoholism Anxiety Arthritis Asthma Heart disease High cholesterol Hypertension Severe allergy Suicide attempt Surgical History History of carpal tunnel surgery of left wrist History of placement of ear tubes Hx of left knee surgery S/P left knee arthroscopy Social History Smoking Status: Current every day smoker tobacco type: cigarettes counseling given: provider counseling and counseling >3 minutes alcohol intake: never substance use type: does not use additional social history: Does Take Aspirin as needed Does Take Ibuprofen as needed ROS ROS ED Constitutional Constitutional ED: Denies chills or fever(s) Eyes Eyes: Denies change in vision or double vision ENT ENT ED: Reports as per HPI and dental pain; Denies sinus pain or throat swelling Cardiovascular Cardiovascular: Denies chest pain or palpitations Respiratory/Chest Respiratory/Chest: Denies cough or dyspnea Integumentary Denies abscess or rash Neurologic Neurologic: Denies headache(s), paresthesias or weakness EXAM Physical Exam Const Vital Signs: 01/31/23 15:48 Temperature 98.9 F Temperature Source Temporal Pulse Rate 116 H Respiratory Rate 19 H Blood Pressure 123/63 H Blood Pressure Mean 83 Pulse Ox 98 Oxygen Delivery Method Room Air Positive well nourished, well developed and obese General Appearance ED: well developed and NAD Nutritional Appearance: obese HEENT HEENT Narrative: Chronically decayed, tender tooth #27 without active discharge or bleeding. Tenderness external caudal to the gingiva consistent with possible early abscess, but it is not pointing intraorally. Externally, patient has a thick keita, however appears to be asymmetric with some swelling in the right jaw in this area. No trismus. Floor of the mouth is soft and nondistended and nontender. No tongue elevation. No stridor. Face and Sinus: sinuses nontender Throat: posterior oropharynx normal Eyes PERRL and EOMs intact bilaterally Neck no lymphadenopathy and supple Resp normal respiratory effort Neuro oriented x3 and CN's II-XII intact bilaterally Sensorium / Orientation: alert Gait (Neuro): normal gait Psych mental status grossly normal and thought process normal Skin no rashes or lesions noted and no wounds MDM MDM MDM Narrative Medical decision making narrative: Especially since patient is a diabetic, he appears to have an early dental abscess and I offered to needle aspirated after topical mucosal anesthesia. We discussed the pros and cons of this, with really the only likely con being pain. He refuses. He understands it may make all of this get better faster. We did a BGT, it is 201, and gave him analgesics and started him on clindamycin, he is not allergic to penicillins, but this may work better if he has a true abscess. Discharge Plan Triage Chief Complaint: Dental ED Provider: James Gonzales Dx/Rx/DC Orders Clinical Impression: Dental decay, Abscess, dental Instructions: Dental Abscess Prescriptions: New hydrocodone-acetaminophen [hydrocodone-acetaminophen] 5-325 mg tablet 1 tab PO Q4H PRN PRN (Reason: Pain) 2 Days Qty: 10 0RF clindamycin HCl 150 mg capsule 300 mg PO 4X/DAY Qty: 80 0RF No Action lisinopril 2.5 mg tablet 2.5 mg PO QHS bisoprolol fumarate 5 mg tablet 5 mg PO QHS fexofenadine [Margie Allergy] 180 mg tablet 180 mg PO DAILY melatonin 5 mg tablet 5 mg PO HS PRN (Reason: Sleep) escitalopram oxalate 20 MG tablet 20 mg PO DAILY albuterol sulfate 1 INHALER inhaler 1 - 2 puff INHALATION Q4H PRN PRN (Reason: Wheezing) Qty: 1 0RF dapagliflozin propanediol 5 MG tablet 5 mg PO DAILY gabapentin 300 MG capsule 300 mg PO BID Victoza 2-Noble 0.6 MG/0.1 ML pen injector 0.8 mg SQ QHS pravastatin 40 MG tablet 40 mg PO QHS omeprazole 40 MG capsule,delayed release(DR/EC) 1 cap PO DAILY Qty: 14 0RF (DME) nebulizer accessories 1 EACH misc 1 ea miscellaneous DAILY PRN Qty: 1 0RF (DME) nebulizer and compressor 1 EACH device 1 ea miscellaneous DAILY PRN Qty: 1 0RF albuterol sulfate 2.5 MG/3 ML solution for nebulization 2.5 mg INHALATION Q4H PRN Qty: 25 0RF Rx Instructions: Use q4 hours and PRN for wheezing Primary Care Provider: Gianni Lindquist Referrals: Gianni Lindquist MD [Primary Care Provider] - Dentist,Your [STAFF PHYSICIAN] - As soon as possible (See attached resource list if you do not have a dentist and/or insurance) Activity Restrictions/Additional Instructions: You have a higher chance of having diarrhea and/or C. difficile infection being on clindamycin. To help mitigate this risk, take either a twice daily probiotic or eat yogurt every day while you are on the antibiotics. Disposition Disposition: Home, Self Care
[2023-01-31] MEDS: Clindamycin HCl 150 MG Capsule 300 MG PO (16:06)
[2023-01-31] MEDS: HYDROcodone Bitartrate/Apap 5/325 Tablet PO (16:06)
[2023-01-31 16:25] LABS: Bedside Glucose 201 mg/dL (74-106)
== END 2023-01-31 16:19 | disposition home or self-care (01) ==
LOC: ED 16:14
PROVIDERS: Emergency Provider Emergency Medicine; PCP Family Medicine; Visit Provider Emergency Medicine
DX: K02.9 Dental caries, unspecified (principal); E11.638 Type 2 diabetes mellitus with other oral complications; F17.210 Nicotine dependence, cigarettes, uncomplicated; E66.9 Obesity, unspecified; K04.7 Periapical abscess without sinus
CPT/HCPCS: 82962; 99284

== ENCOUNTER 2023-02-22 18:06 | Emergency (ER) | payer OTHER, SELFPAY ==
[2023-02-22 18:08] VITALS: BP 124/76; PULSE 96; RESP 18; TEMP 36.1; O2SAT 97
--- NOTE | 2023-02-22 19:04 | EDS_ITS ---
HPI History of Present Illness HPI Narrative: Patient presents with right arm injury that occurred 3 days ago. Patient states that he was at work and a stack of boxes fell onto his right upper arm. Patient describes the pain as sharp and burning. Patient states it is worse with any movement. Patient states it is better with relaxation. Patient denies any paresthesias or weakness. Patient states she tried to go back to work today but it became worse after he started using it again. Chief Complaint: Upper Extremity Injury Occured/Mechanism Mechanism/Context: Yes direct blow Onset/Context/Timing Onset: Days (3) Context: Sudden Onset Quality of Pain: Sharp and Burning Location: Right arm and shoulder Worsened by: Movement Relieved by: Relaxation Associated Symptoms Associated Symptoms: Negative for Parasthesia, Weakness or Loss of Funtion PFSH PFSH Medical History Alcohol use Allergies Anxiety Arthritis Arthritis Asthma Back pain Bilateral carpal tunnel syndrome Cardiology follow-up encounter Chronic bronchitis Diabetes Diabetes Dietary restriction Gastric reflux GERD (gastroesophageal reflux disease) Headache High cholesterol History of stress test Hypertension Hypertension Injury of head and neck Loss of hearing Mild carpal tunnel syndrome of left wrist Seizures Smoker Home Medications escitalopram oxalate 20 mg tablet 20 mg PO DAILY 02/24/16 [History Last Taken 07/01/17] albuterol sulfate 90 mcg/actuation aerosol inhaler 1 - 2 puff inhalation Q4H PRN PRN Wheezing ##1 11/27/16 [Rx Last Taken 07/01/17] dapagliflozin propanediol 5 mg tablet 5 mg PO DAILY 12/03/16 [History Last Taken 07/01/17] gabapentin 300 mg capsule 300 mg PO BID 01/30/17 [History Last Taken 04/03/22] liraglutide 0.6 mg/0.1 mL (18 mg/3 mL) subcutaneous pen injector (Victoza 2-Noble) 0.8 mg SQ QHS 01/30/17 [History Last Taken 07/01/17] pravastatin 40 mg tablet 40 mg PO QHS 12/14/17 [History Last Taken Unknown] omeprazole 40 mg capsule,delayed release 1 cap PO DAILY ##14 04/07/19 [Rx Last Taken 04/03/22] albuterol sulfate 2.5 mg/3 mL (0.083 %) solution for nebulization 2.5 mg (3 mL) inhalation Q4H PRN #25 vials 02/13/20 [Rx Last Taken Unknown] nebulizer accessories #1 ea 02/13/20 [Rx Last Taken Unknown] nebulizer and compressor #1 ea 02/13/20 [Rx Last Taken Unknown] bisoprolol fumarate 5 mg tablet 5 mg PO QHS 12/26/20 [History Last Taken Unknown] fexofenadine 180 mg tablet (Margie Allergy) 180 mg PO DAILY 12/26/20 [History Last Taken Unknown] lisinopril 2.5 mg tablet 2.5 mg PO QHS 12/26/20 [History Last Taken Unknown] melatonin 5 mg tablet 5 mg PO HS PRN Sleep 12/26/20 [History Last Taken Unknown] clindamycin HCl 150 mg capsule 300 mg (2 x 150 mg) PO 4X/DAY #80 CAPSULES 01/31/23 [Rx Last Taken Unknown] hydrocodone-acetaminophen 5-325mg 5mg-325mg 1 tab PO Q4H PRN PRN Pain 2 days #10 TABLETS 01/31/23 [Rx Last Taken Unknown] Allergy/AdvReac Type Severity Reaction Status Date / Time empagliflozin Allergy Angioedema Verified 02/22/23 18:07 [From Jardiance] tramadol Allergy Chest Verified 02/22/23 18:07 tightness cephalexin monohydrate AdvReac Vomiting Verified 02/22/23 18:07 [From Keflex] formoterol fumarate AdvReac Vomiting Verified 02/22/23 18:07 [From Dulera] mometasone furoate AdvReac Vomiting Verified 02/22/23 18:07 [From Dulera] Family History Mother Diabetes Other Alcoholism Anxiety Arthritis Asthma Heart disease High cholesterol Hypertension Severe allergy Suicide attempt Surgical History History of carpal tunnel surgery of left wrist History of placement of ear tubes Hx of left knee surgery S/P left knee arthroscopy Social History Smoking Status: Current every day smoker tobacco type: cigarettes counseling given: provider counseling and counseling >3 minutes alcohol intake: never substance use type: does not use additional social history: Does Take Aspirin as needed Does Take Ibuprofen as needed ROS ROS ED Constitutional Constitutional ED: Denies chills or fever(s) Eyes Eyes: Denies blurry vision or change in vision ENT ENT ED: Denies rhinorrhea or sore throat Cardiovascular Cardiovascular: Denies chest pain or palpitations Respiratory/Chest Respiratory/Chest: Denies cough or dyspnea Gastrointestinal Gastrointestinal: Denies nausea or vomiting Genitourinary Genitourinary ED: Denies dysuria or hematuria Musculoskeletal Musculoskeletal: Denies back pain or neck pain Integumentary Denies abscess or rash Neurologic Neurologic: Denies headache(s) or weakness Allergic/Immunologic Allergic/Immunologic ED: Denies mouth swelling or urticaria EXAM Physical Exam Const Vital Signs: 02/22/23 18:08 Temperature 97.0 F L Temperature Source Temporal Pulse Rate 96 Respiratory Rate 18 Blood Pressure 124/76 H Blood Pressure Mean 92 Pulse Ox 97 Oxygen Delivery Method Room Air Positive well nourished, well developed and obese General Appearance ED: well developed and NAD Nutritional Appearance: obese Neck full ROM and supple Chest Wall inspection of chest normal and palpation of chest normal Extremity Extremity Narrative: There is tenderness over the right shoulder and upper arm. There is no bony c repitance or step-off noted. Range of motion was limited in all motions of the right shoulder secondary to pain. Strength is 5/5 in the radial, median, and ulnar areas. Radial pulses are equal bilaterally. Sensation was intact to light touch in the radial, median, and ulnar areas. Neuro oriented x3, CN's II-XII intact bilaterally, moves all extremities, no focal motor deficits and no sensory deficits noted Sensorium / Orientation: alert Motor Exam: strength 5/5 throughout Psych mental status grossly normal MDM MDM MDM Narrative Medical decision making narrative: Differential diagnosis includes occult fracture, and contusion. X-rays of the right humerus will be obtained to assess for fracture. Radiography Diagnostic Testing: X-rays of the right humerus were obtained. There are 3 views. On my independent interpretation, there is no acute fracture. There is no dislocation. There is no soft tissue swelling. Radiologist also interpreted the x-rays and agrees. Treatment and Re-Evaluation Narrative: Patient was advised of his findings. Patient was instructed to use ice to the area. Patient was instructed to take ibuprofen or Tylenol as needed for pain. Patient was given restrictions for work. Patient was instructed to follow-up with his primary care physician or the [facility] in 5 to 7 days. Patient understood and was agreeable with the plan. All questions were answered. Discharge Plan Triage Chief Complaint: Upper Extremity Injury ED Provider: Misael Adams Dx/Rx/DC Orders Clinical Impression: Contusion of right upper arm, initial encounter, Type 2 diabetes mellitus, Smoker Instructions: ED Contusion, Upper Extremity Prescriptions: No Action lisinopril 2.5 mg tablet 2.5 mg PO QHS bisoprolol fumarate 5 mg tablet 5 mg PO QHS fexofenadine [Margie Allergy] 180 mg tablet 180 mg PO DAILY melatonin 5 mg tablet 5 mg PO HS PRN (Reason: Sleep) escitalopram oxalate 20 MG tablet 20 mg PO DAILY albuterol sulfate 1 INHALER inhaler 1 - 2 puff INHALATION Q4H PRN PRN (Reason: Wheezing) Qty: 1 0RF dapagliflozin propanediol 5 MG tablet 5 mg PO DAILY gabapentin 300 MG capsule 300 mg PO BID Victoza 2-Noble 0.6 MG/0.1 ML pen injector 0.8 mg SQ QHS pravastatin 40 MG tablet 40 mg PO QHS omeprazole 40 MG capsule,delayed release(DR/EC) 1 cap PO DAILY Qty: 14 0RF (DME) nebulizer accessories 1 EACH misc 1 ea miscellaneous DAILY PRN Qty: 1 0RF (DME) nebulizer and compressor 1 EACH device 1 ea miscellaneous DAILY PRN Qty: 1 0RF albuterol sulfate 2.5 MG/3 ML solution for nebulization 2.5 mg INHALATION Q4H PRN Qty: 25 0RF Rx Instructions: Use q4 hours and PRN for wheezing hydrocodone-acetaminophen [hydrocodone-acetaminophen] 5-325 mg tablet 1 tab PO Q4H PRN PRN (Reason: Pain) 2 Days Qty: 10 0RF clindamycin HCl 150 mg capsule 300 mg PO 4X/DAY Qty: 80 0RF Stand Alone Forms: Work Status Form Primary Care Provider: Gianni Lindquist Referrals: Gianni Lindquist MD [Primary Care Provider] - 5-7 Days [facility] [Non-Staff] - 5-7 Days Disposition Disposition: Home, Self Care
--- NOTE | 2023-02-22 19:15 | RAD_ITS ---
STUDY: X-RAY - RIGHT HUMERUS REASON FOR EXAM: Male, 37 years old. Injury/Pain TECHNIQUE: 3 view(s) of the humerus. COMPARISON: None. FINDINGS: Normal visualized humerus. There is no demonstrated fracture or osseous destructive process. There is no demonstrated soft tissue abnormality. RAD/Humerus min 2 Views IMPRESSION: Normal x-ray examination of the humerus. Electronically Signed: Evre Dunn MD at 19:45 EST ,
[2023-02-22 20:37] VITALS: BP 121/81; PULSE 82; RESP 14; O2SAT 97
== END 2023-02-22 20:39 | disposition home or self-care (01) ==
PROVIDERS: Emergency Provider Emergency Medicine; PCP Family Medicine; Visit Provider Emergency Medicine
DX: S40.021A Contusion of right upper arm, initial encounter (principal); E11.9 Type 2 diabetes mellitus without complications; F17.210 Nicotine dependence, cigarettes, uncomplicated; E66.9 Obesity, unspecified; W22.8XXA Striking against or struck by other objects, initial encounter; Y99.0 Civilian activity done for income or pay
CPT/HCPCS: 73060; 99282

== ENCOUNTER → 2023-05-17 | Outpatient (CLI) | payer MEDICARE, MEDICAID, SELFPAY ==
[2023-05-17 16:33] LABS: Absolute Lymphocyte Count 2.86 X10^3/uL (0.83-4.51); Absolute Neutrophil Count 4.3 X10^3/uL (2.0-7.7); Basophil# 0.04 X10^3/uL; Basophil% 0.5 % (0-1); Eosinophil# 0.11 X10^3/uL; Eosinophils% 1.4 % (0-5); Hematocrit 42.6 % (40-54); Hemoglobin 14.8 g/dL (13.0-16.5); Lymphocyte # 2.86 X10^3/ul (0.83-4.51); Lymphocyte % 36.3 % (19-41); Mean Corp Hgb Conc 34.7 g/dL (32-36); Mean Corpuscular Hgb 30.4 pg (27.0-32.0); Mean Corpuscular Volume 87.5 fL (80-94); Monocyte# 0.54 X10^3/uL; Monocyte% 6.9 % (0-10); NRBC Flagged by Analyzer 0 % (0-5); Neutrophil # 4.28 X10^3/uL (2.7-7.7); Neutrophil % 54.4 % (47-70); Platelet Count 230 K/mm3 (150-450); RBC Distribution Width CV 12.2 % (11.6-14.6); RBC Distribution Width SD 39.3 fl (35.1-43.9); Red Blood Count 4.87 M/mm3 (4.6-6.2); White Blood Count 7.9 K/mm3 (4.4-11.0)
[2023-05-17 17:04] LABS: ALB/GLOB Ratio 0.9 RATIO (0.9-2.4); AST(SGOT) 16 U/L (15-37); Alanine Aminotransfer ALT/SGPT 33 U/L (16-61); Albumin, Serum 3.6 g/dL (3.2-5.0); Alkaline Phosphatase 63 U/L (45-117); Anion Gap 6 (5-15); BUN 17 mg/dL (7-18); BUN/Creat Ratio 19.9 RATIO (10-20); Calcium,Total 9.2 mg/dL (8.5-10.1); Chloride 104 mmol/L (98-107); Cholesterol 230 mg/dL (200); Creatinine, Serum 0.86 mg/dL (0.70-1.30); EST Glomerular Filtration Rate 106 mL/min (>60); Est Glom Filt Rate - Afr Amer 128 mL/min (>60); Glucose 145 mg/dL (74-106); High Density Lipoprotein 46 mg/dL; Potassium 4.4 mmol/L (3.5-5.1); Protein, Total 7.6 g/dL (6.4-8.2); Sodium Level 139 mmol/L (136-145); Thyroid Stim Hormone (TSH) 1.62 uIU/mL (0.358-3.74); Triglycerides 322 mg/dL; Very Low Density Lipoprotein 64 mg/dL (5-40)
== END | disposition home or self-care (01) ==
LOC: BIMLAB 15:30
PROVIDERS: PCP Nurse Practitioner; Referring Provider Nurse Practitioner; Visit Provider Nurse Practitioner
DX: E11.9 Type 2 diabetes mellitus without complications (principal); I10 Essential (primary) hypertension
CPT/HCPCS: 36415; 80053; 80061; 84443; 85025

== ENCOUNTER → 2023-07-02 | Outpatient (CLI) | payer MEDICARE, MEDICAID, SELFPAY | END | disposition home or self-care (01) | PROVIDERS: PCP Nurse Practitioner; Referring Provider Nurse Practitioner; Visit Provider Nurse Practitioner | DX: R56.9 Unspecified convulsions (principal) | CPT/HCPCS: 95819 ==

== ENCOUNTER → 2023-07-13 | Outpatient (CLI) | payer MEDICARE, MEDICAID, SELFPAY ==
[2023-07-13 12:57] LABS: ALB/GLOB Ratio 1.1 RATIO (0.9-2.4); AST(SGOT) 17 U/L (15-37); Alanine Aminotransfer ALT/SGPT 35 U/L (16-61); Alkaline Phosphatase 62 U/L (45-117); Anion Gap 6 (5-15); BUN 15 mg/dL (7-18); BUN/Creat Ratio 16.8 RATIO (10-20); Calcium,Total 9.5 mg/dL (8.5-10.1); Chloride 103 mmol/L (98-107); Creatinine, Serum 0.89 mg/dL (0.70-1.30); EST Glomerular Filtration Rate 101 mL/min (>60); Est Glom Filt Rate - Afr Amer 122 mL/min (>60); Globulin 3.6 g/dL (2.2-4.2); Glucose 174 mg/dL (74-106); Potassium 4.1 mmol/L (3.5-5.1); Protein, Total 7.6 g/dL (6.4-8.2); Sodium Level 139 mmol/L (136-145)
== END | disposition home or self-care (01) ==
PROVIDERS: PCP Nurse Practitioner; Referring Provider Nurse Practitioner; Visit Provider Nurse Practitioner
DX: I10 Essential (primary) hypertension (principal)
CPT/HCPCS: 36415; 80053

== ENCOUNTER 2023-08-22 14:54 | Emergency (ER) | payer MEDICARE, MEDICAID, SELFPAY ==
[2023-08-22 14:55] VITALS: BP 139/85; PULSE 83; RESP 18; TEMP 36.1; O2SAT 99; BMI 42.0
--- NOTE | 2023-08-22 15:38 | EDS_ITS ---
HPI History of Present Illness Chief Complaint: Back Informant: patient Onset/Context/Timing Onset: Days Context: Gradual Onset Injury: lifting and repetitive motion Timing: Continuous Quality: Sharp Location: Lumbar Worsened by: improves with Movement Relieved by: Remaining Still Associated Symptoms Associated Symptoms: Numbness; Negative for Tingling, Radiation to Right Leg, Radiation to Left Leg, Fever, Abdominal Pain, Dysuria, Unable to Ambulate, Unabl e to Transfer, Urinary Retention, Urinary Incontinence, Constipation or Fecal Incontinence Narrative Narrative: Patient presents with low back pain that has been getting worse over the past 2 days. 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 Patient states the pain is gradually getting worse. Patient states pain is mainly over the left lower lumbar area but radiates to the right lumbar area. Patient states he had some numbness go down his left leg recently. Patient states his pain is worse with movement. Patient states it is better with relaxing and rest. Patient denies any abdominal pain. Patient denies any bowel or bladder changes. Patient denies any saddle anesthesia. PFSH PFSH Medical History Alcohol use Allergies Anxiety Arthritis Arthritis Asthma Back pain Bilateral carpal tunnel syndrome Cardiology follow-up encounter Chronic bronchitis Chronic lower back pain Diabetes Diabetes Dietary restriction Gastric reflux GERD (gastroesophageal reflux disease) Headache High cholesterol History of stress test Hypertension Hypertension Injury of head and neck Loss of hearing Mild carpal tunnel syndrome of left wrist Seizures Smoker Home Medications melatonin 5 mg tablet 5 mg PO HS PRN Sleep 12/26/20 [History Last Taken Unknown] albuterol sulfate 90 mcg/actuation aerosol inhaler 1 - 2 puff inhalation Q4H PRN PRN Wheezing ##1 05/17/23 [Rx Last Taken Unknown] fexofenadine 180 mg tablet (Margie Allergy) 180 mg PO DAILY #30 tabs 05/17/23 [Rx Last Taken Unknown] lisinopril 2.5 mg tablet 2.5 mg PO QHS #30 tabs 05/17/23 [Rx Last Taken Unknown] arm brace (TERESITA Elbow Brace) #1 ea 06/03/23 [Rx Last Taken Unknown] blood sugar diagnostic (Accu-Chek SmartView Test Strips) #100 ea 06/03/23 [Rx Last Taken Unknown] diclofenac sodium 1 % topical gel 2 g topical ONCE PRN right elbow #100 grams 06/03/23 [Rx Last Taken Unknown] gabapentin 300 mg capsule 300 mg PO BID 30 days #60 caps 06/03/23 [Rx Last Taken Unknown] dapagliflozin propanediol 10 mg tablet 10 mg PO DAILY 90 days #90 tabs 07/13/23 [Rx Last Taken Unknown] dulaglutide 0.75 mg/0.5 mL subcutaneous pen injector 0.75 mg (0.5 mL) subcut QWEEK #2 mL 07/13/23 [Rx Last Taken Unknown] escitalopram oxalate 20 mg tablet 20 mg PO DAILY 30 days #30 tabs 07/13/23 [Rx Last Taken Unknown] rosuvastatin 20 mg tablet 20 mg PO DAILY #30 tabs 07/13/23 [Rx Last Taken Unknown] Allergy/AdvReac Type Severity Reaction Status Date / Time empagliflozin Allergy Angioedema Verified 08/22/23 14:56 [From Jardiance] tramadol Allergy Chest Verified 08/22/23 14:56 tightness cephalexin monohydrate AdvReac Vomiting Verified 08/22/23 14:56 [From Keflex] formoterol fumarate AdvReac Vomiting Verified 08/22/23 14:56 [From Dulera] mometasone furoate AdvReac Vomiting Verified 08/22/23 14:56 [From Dulera] Family History (Updated 07/13/23 @ 09:59 by Cammy Navarro MA) Mother Diabetes Cancer skin, uterus Father Cancer lung Other Alcoholism Anxiety Arthritis Asthma Heart disease High cholesterol Hypertension Severe allergy Suicide attempt Surgical History History of carpal tunnel surgery of left wrist History of placement of ear tubes Hx of left knee surgery S/P left knee arthroscopy Social History Smoking Status: Heavy Smoker (>10/day) alcohol intake: never substance use type: does not use what type of physical activity do you participate in: none and walking do you feel safe at home: Yes additional social history: Does Take Aspirin as needed Does Take Ibuprofen as needed ROS ROS ED Constitutional Constitutional ED: Denies chills or fever(s) Eyes Eyes: Denies blurry vision or change in vision ENT ENT ED: Denies rhinorrhea or sore throat Cardiovascular Cardiovascular: Denies chest pain or palpitations Respiratory/Chest Respiratory/Chest: Denies cough or dyspnea Gastrointestinal Gastrointestinal: Denies nausea or vomiting Genitourinary Genitourinary ED: Denies dysuria or hematuria Musculoskeletal Musculoskeletal: Reports back pain; Denies neck pain Integumentary Denies abscess or rash Neurologic Neurologic: Denies headache(s) or weakness Allergic/Immunologic Allergic/Immunologic ED: Denies mouth swelling or urticaria EXAM Physical Exam Const Vital Signs: 08/22/23 14:55 Temperature 96.9 F L Temperature Source Temporal Pulse Rate 83 Respiratory Rate 18 Blood Pressure 139/85 H Blood Pressure Mean 103 Pulse Ox 99 Oxygen Delivery Method Room Air Positive well nourished, well developed and obese General Appearance ED: well developed and NAD Nutritional Appearance: obese HEENT Reports moist mucous membranes Neck supple and no JVD Resp normal respiratory effort and clear to auscultation bilaterally Cardio regular rate and regular rhythm GI normal to inspection, nondistended, normoactive bowel sounds and non-tender Palpation: soft Back/Spine Back/Spine Narrative: There is tenderness over the lumbar paraspinal muscles. There is no bony crepitance or step-off. There is no edema or ecchymosis. Range of motion was limited in all motions of the lumbar spine secondary to pain. Strength is 5/5 bilaterally in the lower extremities. There are no sensory deficits noted. Deep tendon reflexes are 2+/4 bilaterally in the lower extremities. Lumbar Spine / Lower Back: ROM limited and straight leg raise negative bilaterally Extremity normal to inspection General Extremety ED: Negative for edema or tenderness General Extremity: Negative for edema Neuro oriented x3, CN's II-XII intact bilaterally and no sensory deficits noted Sensorium / Orientation: alert Motor Exam: strength 5/5 throughout Deep Tendon Reflexes: Rt Patellar (L4): 2+, Lt Patellar (L4): 2+, Rt Ankle (S1): 2+ and Lt Ankle (S1): 2+ Deep Tendon Reflexes Back: Rt Patellar (L4): 2+, Lt Patellar (L4): 2+, Rt Ankle (S1): 2+ and Lt Ankle (S1): 2+ Psych mental status grossly normal Skin no rashes or lesions noted MDM MDM MDM Narrative Medical decision making narrative: Patient was advised that this is most likely muscular strain. X-rays are not indicated at this time. Patient was given injection of Toradol. Patient was given a note for work to limit his bending and lifting. Patient was instructed to follow-up with his primary care physician in 5 to 7 days. Patient understood and was agreeable with the plan. All questions were answered. Discharge Plan Triage Chief Complaint: Back ED Provider: Misael Adams Dx/Rx/DC Orders Clinical Impression: Lumbosacral strain, Tobacco abuse, Morbid obesity with BMI of 40.0-44.9, adult Instructions: ED Back Sprain/Strain Prescriptions: No Action melatonin 5 mg tablet 5 mg PO HS PRN (Reason: Sleep) albuterol sulfate 90 mcg/actuation HFA aerosol inhaler 1 - 2 puff INHALATION Q4H PRN PRN (Reason: Wheezing) Qty: 1 0RF lisinopril 2.5 mg tablet 2.5 mg PO QHS Qty: 30 1RF fexofenadine [Margie Allergy] 180 mg tablet 180 mg PO DAILY Qty: 30 1RF dapagliflozin propanediol 10 mg tablet 10 mg PO DAILY 90 Days Qty: 90 1RF dulaglutide 0.75 mg/0.5 mL pen injector 0.75 mg subcut QWEEK Qty: 2 2RF escitalopram oxalate 20 mg tablet 20 mg PO DAILY 30 Days Qty: 30 2RF rosuvastatin 20 mg tablet 20 mg PO DAILY Qty: 30 1RF (DME) Accu-Chek SmartView Test Strip Strip See Rx Instructions .Route Qty: 100 2RF Rx Instructions: As directed (DME) TERESITA Elbow Brace Misc See Rx Instructions .Route Qty: 1 0RF Rx Instructions: As directed diclofenac sodium 1 % gel 2 g topical ONCE PRN (Reason: right elbow) Qty: 100 1RF Rx Instructions: apply to single elbow once a day as needed for elbow pain gabapentin 300 mg capsule 300 mg PO BID 30 Days Qty: 60 1RF Stand Alone Forms: Work Status Form Primary Care Provider: Nat Arambula Referrals: Nat Arambula, POWER TRANSMISSION ENGINEER-C [Primary Care Provider] - 5-7 Days Disposition Disposition: Home, Self Care
[2023-08-22 15:54] VITALS: BP 137/82; PULSE 81; RESP 16; TEMP 36.6; O2SAT 98
[2023-08-22] MEDS: Ketorolac 60 MG/2 ML Vial IM (15:59)
== END 2023-08-22 16:14 | disposition home or self-care (01) ==
PROVIDERS: Emergency Provider Emergency Medicine; PCP Nurse Practitioner; Visit Provider Emergency Medicine
DX: S39.012A Strain of muscle, fascia and tendon of lower back, initial encounter (principal); E66.01 Morbid (severe) obesity due to excess calories; Z68.41 Body mass index [BMI] 40.0-44.9, adult; E11.9 Type 2 diabetes mellitus without complications; F17.200 Nicotine dependence, unspecified, uncomplicated; J45.909 Unspecified asthma, uncomplicated; K21.9 Gastro-esophageal reflux disease without esophagitis; I10 Essential (primary) hypertension; E78.00 Pure hypercholesterolemia, unspecified; X50.3XXA Overexertion from repetitive movements, initial encounter; Y99.0 Civilian activity done for income or pay
CPT/HCPCS: 96372; 99282; J7030; A4216

== ENCOUNTER → 2023-12-11 | Outpatient (CLI) | payer MEDICARE, MEDICAID, SELFPAY ==
[2023-12-11 10:02] LABS: Anion Gap 8 (5-15); BUN 11 mg/dL (7-18); Chloride 105 mmol/L (98-107); Cholesterol 133 mg/dL (200); Creatinine, Serum 0.91 mg/dL (0.70-1.30); EST Glomerular Filtration Rate 98 mL/min (>60); Est Glom Filt Rate - Afr Amer 119 mL/min (>60); Glucose 138 mg/dL (74-106); High Density Lipoprotein 36 mg/dL; Potassium 4.1 mmol/L (3.5-5.1); Sodium Level 139 mmol/L (136-145); Triglycerides 154 mg/dL; Very Low Density Lipoprotein 31 mg/dL (5-40)
[2023-12-11 10:26] LABS: Microalbumin,Random Urine 8.1 mg/L (NO RANGE EST.)
== END | disposition home or self-care (01) ==
LOC: LAB 08:13
PROVIDERS: PCP Nurse Practitioner; Referring Provider Nurse Practitioner; Visit Provider Nurse Practitioner
DX: E11.9 Type 2 diabetes mellitus without complications (principal); I10 Essential (primary) hypertension
CPT/HCPCS: 36415; 80048; 80061; 82043

== ENCOUNTER 2024-04-11 09:13 | Emergency (ER) | payer MEDICARE, MEDICAID, SELFPAY ==
[2024-04-11 09:14] VITALS: BP 140/88; PULSE 104; RESP 18; TEMP 36.9; O2SAT 97; BMI 42.0
--- NOTE | 2024-04-11 09:28 | EX.ED.DYSGE1 ---
HPI History of Present Illness Chief Complaint: Nausea/Vomiting/Diarrhea Informant: patient Narrative Narrative: 38-year-old male presenting to the emergency room with vomiting diarrhea. Patient states that yesterday morning he began to experience copious amounts of diarrhea which she describes as green and watery. He noted nausea throughout the day eating minimally for dinner last night (2 pieces of toast). 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 He called his employer and they suggested he be seen. Patient states he feels dehydrated. He notes that 2 weeks ago he completed a course of azithromycin for an ear infection. He denies any history of colitis diverticulitis. He notes left-sided abdominal discomfort (cramping). He denies fever. No blood in the stool. He is a diabetic. [facility] Medical History Smoker Contusion of nose, sequela Deviated septum Other specified disorders of nose and nasal sinuses Dyspnea Airway obstruction, anatomic Chronic lower back pain Loss of hearing Alcohol use Diabetes Arthritis Injury of head and neck Back pain Dietary restriction Gastric reflux Smoker Cardiology follow-up encounter History of stress test Hypertension Mild carpal tunnel syndrome of left wrist Bilateral carpal tunnel syndrome Seizures GERD (gastroesophageal reflux disease) High cholesterol Hypertension Headache Chronic bronchitis Arthritis Allergies Asthma Diabetes Anxiety Home Medications ?Medication ?Instructions ?Recorded ?Last Taken ?Type albuterol sulfate 90 mcg/actuation 1 - 2 puff inhalation Q4H PRN PRN 05/17/23 Unknown Rx aerosol inhaler Wheezing ##1 fexofenadine 180 mg tablet 180 mg PO DAILY #30 tabs 05/17/23 Unknown Rx (Margie Allergy) lisinopril 2.5 mg tablet 2.5 mg PO QHS #30 tabs 05/17/23 Unknown Rx arm brace (TERESITA Elbow Brace) #1 ea 06/03/23 Unknown Rx diclofenac sodium 1 % topical gel 2 g topical ONCE PRN right elbow 06/03/23 Unknown Rx #100 grams blood sugar diagnostic (Accu-Chek #100 ea 10/01/23 Unknown Rx Guide test strips) rosuvastatin 20 mg tablet 20 mg PO DAILY #30 tabs 10/19/23 Unknown Rx dapagliflozin propanediol 10 mg 10 mg PO DAILY 90 days #90 tabs 11/30/23 Unknown Rx tablet dulaglutide 1.5 mg/0.5 mL 1.5 mg (0.5 mL) subcut QWEEK #2 mL 11/30/23 Unknown Rx subcutaneous pen injector gabapentin 300 mg capsule 300 mg PO BID #60 caps 03/02/24 Unknown Rx escitalopram oxalate 20 mg tablet 20 mg PO DAILY 30 days #30 tabs 03/03/24 Unknown Rx bupropion HCl 150 mg 24 hr tablet, 150 mg PO QAM #30 tabs 03/23/24 Unknown Rx extended release (Wellbutrin XL) dulaglutide 3 mg/0.5 mL 3 mg (0.5 mL) subcut QWEEK #2 mL 03/23/24 Unknown Rx subcutaneous pen injector pantoprazole 40 mg tablet,delayed 40 mg PO QDAY #30 tabs 03/23/24 Unknown Rx release ropinirole 0.5 mg tablet 0.5 mg PO QPM #30 TABLETS 03/31/24 Unknown Rx ondansetron 4 mg disintegrating 4 mg PO Q6H PRN PRN Nausea #15 tabs 04/11/24 Unknown Rx tablet Allergy/AdvReac Type Severity Reaction Status Date / Time empagliflozin (From Allergy Angioedema Verified 04/11/24 09:14 Jardiance) tramadol Allergy Chest Verified 04/11/24 09:14 tightness cephalexin monohydrate (From AdvReac Vomiting Verified 04/11/24 09:14 Keflex) formoterol fumarate (From AdvReac Vomiting Verified 04/11/24 09:14 Dulera) mometasone furoate (From AdvReac Vomiting Verified 04/11/24 09:14 Dulera) Family History Mother Diabetes Cancer skin, uterus Father Cancer lung Other Alcoholism Anxiety Arthritis Asthma Heart disease High cholesterol Hypertension Severe allergy Suicide attempt Surgical History History of carpal tunnel surgery of left wrist Hx of left knee surgery History of placement of ear tubes S/P left knee arthroscopy Social History Smoking Status: Heavy Smoker (>10/day) alcohol intake: never substance use type: does not use what type of physical activity do you participate in: none and walking do you feel safe at home: Yes additional social history: Does Take Aspirin as needed Does Take Ibuprofen as needed ROS ROS ED Constitutional Constitutional ED: Denies chills, fever(s) or weight loss Eyes Eyes: Denies change in vision or diplopia ENT ENT ED: Denies ear pain, rhinorrhea or sore throat Cardiovascular Cardiovascular: Denies chest pain, orthopnea, palpitations or racing heartbeat Respiratory/Chest Respiratory/Chest: Denies cough, dyspnea or orthopnea Gastrointestinal Gastrointestinal: Reports abdominal pain, diarrhea, nausea and vomiting Genitourinary Genitourinary ED: Denies dysuria, hematuria or urinary frequency Musculoskeletal Musculoskeletal: Denies arthralgias or myalgias Integumentary Denies abscess or rash Neurologic Neurologic: Denies headache(s) or weakness Psychiatric Psychiatric: Denies anxiety, depression, suicidal ideation or suicidal thoughts Endocrine Endocrinology: Denies polydipsia, polyphagia or polyuria Allergic/Immunologic Allergic/Immunologic ED: Denies mouth swelling, tongue swelling or urticaria EXAM Physical Exam Const Vital Signs: 04/11/24 09:14 Temperature 98.4 F Temperature Source Oral Pulse Rate 104 H Respiratory Rate 18 Blood Pressure 140/88 H Blood Pressure Mean 105 Pulse Ox 97 Oxygen Delivery Method Room Air Positive well nourished, well developed and obese General Appearance ED: well developed and NAD Nutritional Appearance: obese HEENT Reports normocephalic, head/scalp atraumatic and dry mucous membranes Mouth ED: Yes dry mucous membranes Mouth: dry mucous membranes Eyes PERRL and EOMs intact bilaterally Neck no lymphadenopathy, supple and no JVD Resp normal respiratory effort and clear to auscultation bilaterally Cardio regular rate, regular rhythm and no murmurs Rate: tachycardic GI normal to inspection, nondistended, normoactive bowel sounds and non-tender Palpation: soft Back/Spine no CVA tenderness and normal ROM Extremity normal to inspection General Extremety ED: Negative for edema General Extremity: Negative for edema Neuro oriented x3 and CN's II-XII intact bilaterally Sensorium / Orientation: alert Motor Exam: strength 5/5 throughout Psych mental status grossly normal Mood & Affect: Negative for depressed or tearful Skin no rashes or lesions noted and no wounds MDM MDM MDM Narrative Medical decision making narrative: Differential diagnosis includes but not limited to viral gastroenteritis colitis diverticulitis bowel obstruction dehydration electrolyte abnormalities GI bleed IV was established patient received IV fluids Zofran and intramuscular Bentyl. Patient's white count 10.8 with 72.1 neutrophils hemoglobin 17.7 platelet count 259. BMP with a sodium of 135 glucose 172 anion gap is 8 CO2 24 creatinine 1.10. Patient is doing well on repeat examination. I do not believe that the abdominal exam is consistent with a surgical abdomen. Would recommend Zofran and Imodium as needed oral hydration and advancement of diet as tolerated. History & Record Review Discussion w/independent historian: Patient Additional record(s) reviewed:: Prior labs Lab Data Attestation: I reviewed the patient's lab results. Labs: Laboratory Results - last 24 hr 04/11/24 09:35 WBC 10.8 RBC 5.98 Hgb 17.7 H Hct 50.3 MCV 84.1 MCH 29.6 MCHC 35.2 RDW Std Deviation 39.0 RDW Coeff of Shashi 12.9 Plt Count 259 MPV 11.4 Immature Gran % (Auto) 0.700 Neut % (Auto) 72.1 H Lymph % (Auto) 16.8 L Brewster % (Auto) 7.3 Eos % (Auto) 2.8 Baso % (Auto) 0.3 Absolute Neuts (auto) 7.8 H Absolute Lymphs (auto) 1.82 Nucleated RBC % 0 Sodium 135 L Potassium 3.7 Chloride 103 Carbon Dioxide 24.0 Anion Gap 8 BUN 18 Creatinine 1.10 Estim Creat Clear Calc 120.04 Est GFR (MDRD) Af Amer 96 Est GFR (MDRD) Non-Af 79 BUN/Creatinine Ratio 16.4 Glucose 172 H Calcium 9.6 Discharge Plan Triage Chief Complaint: Nausea/Vomiting/Diarrhea ED Provider: Frank Peña Dx/Rx/DC Orders Clinical Impression: Gastroenteritis, Diabetes, Acute dehydration Instructions: Viral Gastroenteritis, ED Dehydration (Adult) Prescriptions: New ondansetron 4 mg tablet,disintegrating 4 mg PO Q6H PRN PRN (Reason: Nausea) Qty: 15 0RF No Action albuterol sulfate 90 mcg/actuation HFA aerosol inhaler 1 - 2 puff INHALATION Q4H PRN PRN (Reason: Wheezing) Qty: 1 0RF lisinopril 2.5 mg tablet 2.5 mg PO QHS Qty: 30 1RF fexofenadine [Margie Allergy] 180 mg tablet 180 mg PO DAILY Qty: 30 1RF (DME) TERESITA Elbow Brace Misc See Rx Instructions .Route Qty: 1 0RF Rx Instructions: As directed diclofenac sodium 1 % gel 2 g topical ONCE PRN (Reason: right elbow) Qty: 100 1RF Rx Instructions: apply to single elbow once a day as needed for elbow pain dulaglutide 1.5 mg/0.5 mL pen injector 1.5 mg subcut QWEEK Qty: 2 2RF dapagliflozin propanediol 10 mg tablet 10 mg PO DAILY 90 Days Qty: 90 1RF dulaglutide 3 mg/0.5 mL pen injector 3 mg subcut QWEEK Qty: 2 2RF bupropion HCl [Wellbutrin XL] 150 mg tablet extended release 24 hr 150 mg PO QAM Qty: 30 1RF pantoprazole 40 mg tablet,delayed release (DR/EC) 40 mg PO QDAY Qty: 30 2RF (DME) Accu-Chek Guide test strips Strip See Rx Instructions .Route Qty: 100 3RF Rx Instructions: As directed rosuvastatin 20 mg tablet 20 mg PO DAILY Qty: 30 1RF gabapentin 300 mg capsule 300 mg PO BID Qty: 60 0RF escitalopram oxalate 20 mg tablet 20 mg PO DAILY 30 Days Qty: 30 1RF ropinirole 0.5 mg tablet 0.5 mg PO QPM Qty: 30 0RF Primary Care Provider: Nat Arambula Referrals: Nat Arambula, RETORT COOLER-C [Primary Care Provider] - As Needed Print Language: Telugu Disposition Disposition: Home, Self Care
[2024-04-11] MEDS: 0.9% Normal Saline (1000mL) 1,000 ML 1000 ML IV (09:31)
[2024-04-11] MEDS: Dicyclomine 20 MG/2 ML Vial IM (09:31)
[2024-04-11] MEDS: Ondansetron 4 MG/2 ML Vial IV (09:31)
[2024-04-11 09:42] LABS: Absolute Lymphocyte Count 1.82 X10^3/uL (0.83-4.51); Absolute Neutrophil Count 7.8 X10^3/uL (2.0-7.7); Basophil# 0.03 X10^3/uL; Basophil% 0.3 % (0-1); Eosinophils% 2.8 % (0-5); Hematocrit 50.3 % (40-54); Hemoglobin 17.7 g/dL (13.0-16.5); Lymphocyte # 1.82 X10^3/ul (0.83-4.51); Lymphocyte % 16.8 % (19-41); Mean Corp Hgb Conc 35.2 g/dL (32-36); Mean Corpuscular Hgb 29.6 pg (27.0-32.0); Mean Corpuscular Volume 84.1 fL (80-94); Mean Platelet Vol. 11.4 fl (6.2-12.0); Monocyte# 0.79 X10^3/uL; Monocyte% 7.3 % (0-10); NRBC Flagged by Analyzer 0 % (0-5); Neutrophil # 7.82 X10^3/uL (2.7-7.7); Neutrophil % 72.1 % (47-70); Platelet Count 259 K/mm3 (150-450); RBC Distribution Width CV 12.9 % (11.6-14.6); Red Blood Count 5.98 M/mm3 (4.6-6.2); White Blood Count 10.8 K/mm3 (4.4-11.0)
[2024-04-11 09:55] LABS: Anion Gap 8 (5-15); BUN 18 mg/dL (7-18); BUN/Creat Ratio 16.4 RATIO (10-20); Calcium,Total 9.6 mg/dL (8.5-10.1); Chloride 103 mmol/L (98-107); EST Glomerular Filtration Rate 79 mL/min (>60); Est Glom Filt Rate - Afr Amer 96 mL/min (>60); Estimated Creatinine Clearance 120.04 ml/min; Glucose 172 mg/dL (74-106); Potassium 3.7 mmol/L (3.5-5.1); Sodium Level 135 mmol/L (136-145)
[2024-04-11 10:50] VITALS: BP 120/72; PULSE 87; RESP 16; TEMP 36.2; O2SAT 96
== END 2024-04-11 10:52 | disposition home or self-care (01) ==
PROVIDERS: Emergency Provider Emergency Medicine; PCP Nurse Practitioner; Visit Provider Emergency Medicine
DX: K52.9 Noninfective gastroenteritis and colitis, unspecified (principal); E11.9 Type 2 diabetes mellitus without complications; E86.0 Dehydration; I10 Essential (primary) hypertension; K21.9 Gastro-esophageal reflux disease without esophagitis; E66.9 Obesity, unspecified; E78.00 Pure hypercholesterolemia, unspecified; F41.9 Anxiety disorder, unspecified; M54.50 Low back pain, unspecified; G89.29 Other chronic pain; J45.909 Unspecified asthma, uncomplicated; F17.200 Nicotine dependence, unspecified, uncomplicated; Z88.1 Allergy status to other antibiotic agents; Z79.85 Long-term (current) use of injectable non-insulin antidiabetic drugs; Z79.899 Other long term (current) drug therapy
CPT/HCPCS: 80048; 85025; 96361; 96372; 96374; 99283; A4216; J2405

== ENCOUNTER → 2024-06-21 | Outpatient (CLI) | payer MEDICARE, MEDICAID, SELFPAY ==
[2024-06-21 13:20] LABS: Absolute Lymphocyte Count 1.94 X10^3/uL (0.83-4.51); Absolute Neutrophil Count 2.9 X10^3/uL (2.0-7.7); Basophil# 0.03 X10^3/uL; Basophil% 0.5 % (0-1); Eosinophil# 0.13 X10^3/uL; Eosinophils% 2.4 % (0-5); Hematocrit 42.9 % (40-54); Hemoglobin 15.1 g/dL (13.0-16.5); Lymphocyte # 1.94 X10^3/ul (0.83-4.51); Lymphocyte % 35.3 % (19-41); Mean Corp Hgb Conc 35.2 g/dL (32-36); Mean Corpuscular Hgb 30.1 pg (27.0-32.0); Mean Corpuscular Volume 85.6 fL (80-94); Mean Platelet Vol. 11.9 fl (6.2-12.0); Monocyte# 0.44 X10^3/uL; NRBC Flagged by Analyzer 0 % (0-5); Neutrophil # 2.94 X10^3/uL (2.7-7.7); Neutrophil % 53.4 % (47-70); Platelet Count 200 K/mm3 (150-450); RBC Distribution Width CV 13.1 % (11.6-14.6); RBC Distribution Width SD 40.1 fl (35.1-43.9); Red Blood Count 5.01 M/mm3 (4.6-6.2); White Blood Count 5.5 K/mm3 (4.4-11.0)
[2024-06-21 13:55] LABS: ALB/GLOB Ratio 1.2 RATIO (0.9-2.4); AST(SGOT) 39 U/L (<=37); Alanine Aminotransfer ALT/SGPT 51 U/L (<=46); Alkaline Phosphatase 72 U/L (40-129); Anion Gap 10 (5-15); BUN 15 mg/dL (4-19); BUN/Creat Ratio 15.2 RATIO (10-20); Calcium,Total 9.3 mg/dL (7.6-11.0); Carbon Dioxide 26.2 mmol/L (21.0-32.0); Chloride 101 mmol/L (98-108); Cholesterol 216 mg/dL (<=200); Creatinine, Serum 0.97 mg/dL (0.70-1.20); EST Glomerular Filtration Rate 102 (>60); Ferritin 191 ng/mL (37-417); Globulin 3.3 g/dL (2.2-4.2); Glucose 137 mg/dL (70-99); High Density Lipoprotein 41 mg/dL; Low Density Lipoprotein Calc. 124 mg/dL; Potassium 4.2 mmol/L (3.3-5.1); Protein, Total 7.3 g/dL (5.9-8.4); Sodium Level 137 mmol/L (133-145); Total Bilirubin 0.48 mg/dL (0.00-1.30); Triglycerides 258 mg/dL; Very Low Density Lipoprotein 52 mg/dL (5-40); Vitamin B12 645 pg/mL (180-914); cholesterol:hdl ratio screen 5.33
[2024-06-21 14:12] LABS: Microalbumin,Random Urine < 12.0 mg/L (NO RANGE EST.)
== END | disposition home or self-care (01) ==
LOC: VSLAB 10:11
PROVIDERS: PCP Family Medicine; Visit Provider Family Medicine
DX: I10 Essential (primary) hypertension (principal); E78.2 Mixed hyperlipidemia; K21.9 Gastro-esophageal reflux disease without esophagitis; G25.81 Restless legs syndrome
CPT/HCPCS: 36415; 80053; 80061; 82043; 82306; 82607; 82728; 84443; 85025